=== PATIENT | female | born 1955 | race Caucasian/White ===

== ENCOUNTER → 2018-03-15 | Outpatient (CLI) | payer OTHER ==
[~2018-03-15] MED LIST: ADVIL100 MG PO; ASPI81CH PO; Apidra Sol100 UNIT/1 SC; Augmentin 875-1 EACH PO; BENADRYL PO; BENADRYL25 MG PO; CALCA500CH PO; CHOL10002 PO; Caltrate-600 W1 EACH PO; DOCU100 PO; INSDET100 SC; INVOKANA100 MG PO; L-LYSINE500 MG PO; LEVFLO500 PO; LISI5 PO; METF500C PO; METO100ER PO; METR500 PO; Mupirocin22 GM TOP; NAPR220 PO; POTA20LUD PO; RALO60 PO; SIMV40 PO; TOUJEO SOL300 UNIT/1 SQ
== END | disposition home or self-care (01) ==
LOC: EDSTATUS 11:52 → LAB 22:27
DX: L08.9 Local infection of the skin and subcutaneous tissue, unspecified (principal)

== ENCOUNTER → 2020-12-17 | Outpatient (CLI) | payer OTHER ==
[~2020-12-17] MED LIST changes: +HYDR1TAB94 PO
== END | disposition home or self-care (01) ==
LOC: LAB 10:30 → LAB SHORT 10:30
DX: R22.2 Localized swelling, mass and lump, trunk (principal)
CPT/HCPCS: 87070; 87205

== ENCOUNTER → 2021-01-10 | Outpatient (CLI) | payer OTHER | END | disposition home or self-care (01) | LOC: LAB SHORT 15:04 → PLD 15:04 | DX: L82.1 Other seborrheic keratosis (principal) | CPT/HCPCS: 88305 ==

== ENCOUNTER → 2021-01-29 | Outpatient (CLI) | payer OTHER | LOC: LAB SHORT 09:45 → LAB 09:45 | DX: L03.313 Cellulitis of chest wall (principal); Z85.3 Personal history of malignant neoplasm of breast; Z90.12 Acquired absence of left breast and nipple; Z88.6 Allergy status to analgesic agent; Z88.2 Allergy status to sulfonamides; Z88.8 Allergy status to other drugs, medicaments and biological substances; Z91.040 Latex allergy status | CPT/HCPCS: 87070; 87077; 87147; 87186; 87205 ==

== ENCOUNTER → 2021-04-05 | Outpatient (CLI) | payer OTHER | END | disposition home or self-care (01) | LOC: LAB SHORT 12:30 | DX: S20.312D Abrasion of left front wall of thorax, subsequent encounter (principal) | CPT/HCPCS: 87070; 87075; 87077; 87186; 87205 ==

== ENCOUNTER 2021-05-22 08:00 | Day surgery (SDC) | payer OTHER | END 2021-05-22 23:59 | disposition home or self-care (01) | LOC: WOUND 08:00 | DX: S21.102D Unspecified open wound of left front wall of thorax without penetration into thoracic cavity, subsequent encounter (principal); X58.XXXD Exposure to other specified factors, subsequent encounter; Z85.3 Personal history of malignant neoplasm of breast; Z92.3 Personal history of irradiation | CPT/HCPCS: 11102; 88305; 88312; A9270; G0463 ==

== ENCOUNTER 2021-06-03 02:57 | Day surgery (SDC) | payer OTHER | END 2021-06-03 12:00 | disposition home or self-care (01) | LOC: WOUND 02:57 | DX: L59.8 Other specified disorders of the skin and subcutaneous tissue related to radiation (principal); E11.9 Type 2 diabetes mellitus without complications; Y84.2 Radiological procedure and radiotherapy as the cause of abnormal reaction of the patient, or of later complication, without mention of misadventure at the time of the procedure; Z85.3 Personal history of malignant neoplasm of breast; Z92.3 Personal history of irradiation; Z90.13 Acquired absence of bilateral breasts and nipples | CPT/HCPCS: G0463 ==

== ENCOUNTER 2021-06-04 07:56 | Day surgery (SDC) | payer OTHER | END 2021-06-04 23:00 | disposition home or self-care (01) | LOC: HBO 07:56 | DX: L59.8 Other specified disorders of the skin and subcutaneous tissue related to radiation (principal); E11.9 Type 2 diabetes mellitus without complications; Z85.3 Personal history of malignant neoplasm of breast; Z92.3 Personal history of irradiation | CPT/HCPCS: 82947; G0277 ==

== ENCOUNTER 2021-06-05 02:16 | Day surgery (SDC) | payer OTHER | END 2021-06-05 23:16 | disposition home or self-care (01) | LOC: HBO 02:16 | DX: L59.8 Other specified disorders of the skin and subcutaneous tissue related to radiation (principal); E11.59 Type 2 diabetes mellitus with other circulatory complications; Z85.3 Personal history of malignant neoplasm of breast; Z92.3 Personal history of irradiation | CPT/HCPCS: 82947; G0277 ==

== ENCOUNTER 2021-06-06 04:07 | Day surgery (SDC) | payer OTHER | END 2021-06-06 23:32 | disposition home or self-care (01) | LOC: HBO 04:07 | DX: L59.8 Other specified disorders of the skin and subcutaneous tissue related to radiation (principal); E11.9 Type 2 diabetes mellitus without complications; Z85.3 Personal history of malignant neoplasm of breast; Z92.3 Personal history of irradiation | CPT/HCPCS: 82947; G0277 ==

== ENCOUNTER 2021-06-07 00:54 | Day surgery (SDC) | payer OTHER | END 2021-06-07 23:57 | disposition home or self-care (01) | LOC: HBO 00:54 | DX: L59.8 Other specified disorders of the skin and subcutaneous tissue related to radiation (principal); E11.9 Type 2 diabetes mellitus without complications; Z85.3 Personal history of malignant neoplasm of breast; Z92.3 Personal history of irradiation | CPT/HCPCS: 82947; G0277 ==

== ENCOUNTER 2021-06-10 02:09 | Day surgery (SDC) | payer OTHER | END 2021-06-10 23:49 | disposition home or self-care (01) | LOC: HBO 02:09 | DX: L59.8 Other specified disorders of the skin and subcutaneous tissue related to radiation (principal); E11.9 Type 2 diabetes mellitus without complications; Z85.3 Personal history of malignant neoplasm of breast; Z92.3 Personal history of irradiation | CPT/HCPCS: 82947; G0277 ==

== ENCOUNTER 2021-06-11 00:37 | Day surgery (SDC) | payer OTHER | END 2021-06-11 22:49 | disposition home or self-care (01) | LOC: HBO 00:37 | DX: L59.8 Other specified disorders of the skin and subcutaneous tissue related to radiation (principal); E11.9 Type 2 diabetes mellitus without complications; Z85.3 Personal history of malignant neoplasm of breast | CPT/HCPCS: 82947; A9270; G0277; G0463 ==

== ENCOUNTER 2021-06-12 00:26 | Day surgery (SDC) | payer OTHER | END 2021-06-12 23:16 | disposition home or self-care (01) | LOC: HBO 00:26 | DX: L59.8 Other specified disorders of the skin and subcutaneous tissue related to radiation (principal); E11.9 Type 2 diabetes mellitus without complications; Z85.3 Personal history of malignant neoplasm of breast; Z92.3 Personal history of irradiation | CPT/HCPCS: 82947; G0277 ==

== ENCOUNTER 2021-06-13 01:33 | Day surgery (SDC) | payer OTHER | END 2021-06-13 23:33 | disposition home or self-care (01) | LOC: HBO 01:33 | DX: L59.8 Other specified disorders of the skin and subcutaneous tissue related to radiation (principal); E11.9 Type 2 diabetes mellitus without complications; Z85.3 Personal history of malignant neoplasm of breast; Z92.3 Personal history of irradiation | CPT/HCPCS: 82947; G0277 ==

== ENCOUNTER 2021-06-14 02:26 | Day surgery (SDC) | payer OTHER | END 2021-06-14 23:19 | disposition home or self-care (01) | LOC: HBO 02:26 | DX: L59.8 Other specified disorders of the skin and subcutaneous tissue related to radiation (principal); E11.9 Type 2 diabetes mellitus without complications; Y84.2 Radiological procedure and radiotherapy as the cause of abnormal reaction of the patient, or of later complication, without mention of misadventure at the time of the procedure; Z85.3 Personal history of malignant neoplasm of breast; Z92.3 Personal history of irradiation | CPT/HCPCS: 82947; G0277 ==

== ENCOUNTER 2021-06-17 03:00 | Day surgery (SDC) | payer OTHER | END 2021-06-17 23:19 | disposition home or self-care (01) | LOC: HBO 03:00 | DX: L59.8 Other specified disorders of the skin and subcutaneous tissue related to radiation (principal); E11.9 Type 2 diabetes mellitus without complications; Z85.3 Personal history of malignant neoplasm of breast; Z92.3 Personal history of irradiation; Y84.2 Radiological procedure and radiotherapy as the cause of abnormal reaction of the patient, or of later complication, without mention of misadventure at the time of the procedure | CPT/HCPCS: 82947; G0277 ==

== ENCOUNTER 2021-06-19 01:18 | Day surgery (SDC) | payer OTHER | END 2021-06-19 23:04 | disposition home or self-care (01) | LOC: HBO 01:18 | DX: L59.8 Other specified disorders of the skin and subcutaneous tissue related to radiation (principal); E11.9 Type 2 diabetes mellitus without complications; Y84.2 Radiological procedure and radiotherapy as the cause of abnormal reaction of the patient, or of later complication, without mention of misadventure at the time of the procedure; Z85.3 Personal history of malignant neoplasm of breast; Z92.3 Personal history of irradiation | CPT/HCPCS: 82947; G0277 ==

== ENCOUNTER 2021-06-20 01:37 | Day surgery (SDC) | payer OTHER | END 2021-06-20 23:08 | disposition home or self-care (01) | LOC: HBO 01:37 | DX: L59.8 Other specified disorders of the skin and subcutaneous tissue related to radiation (principal); E11.9 Type 2 diabetes mellitus without complications; Z85.3 Personal history of malignant neoplasm of breast; Z92.3 Personal history of irradiation | CPT/HCPCS: 82947; G0277 ==

== ENCOUNTER 2021-06-21 03:01 | Day surgery (SDC) | payer OTHER | END 2021-06-21 23:32 | disposition home or self-care (01) | LOC: HBO 03:01 | DX: L59.8 Other specified disorders of the skin and subcutaneous tissue related to radiation (principal); E11.9 Type 2 diabetes mellitus without complications; Z85.3 Personal history of malignant neoplasm of breast; Z92.3 Personal history of irradiation | CPT/HCPCS: 82947; G0277 ==

== ENCOUNTER 2021-06-25 02:50 | Day surgery (SDC) | payer OTHER | END 2021-06-25 23:00 | disposition home or self-care (01) | LOC: HBO 02:50 | DX: L59.8 Other specified disorders of the skin and subcutaneous tissue related to radiation (principal); E11.9 Type 2 diabetes mellitus without complications; Z85.3 Personal history of malignant neoplasm of breast; Z92.3 Personal history of irradiation; Y84.2 Radiological procedure and radiotherapy as the cause of abnormal reaction of the patient, or of later complication, without mention of misadventure at the time of the procedure | CPT/HCPCS: 82947; G0277 ==

== ENCOUNTER 2021-06-26 02:27 | Day surgery (SDC) | payer OTHER | END 2021-06-26 23:49 | disposition home or self-care (01) | LOC: HBO 02:27 | DX: L59.8 Other specified disorders of the skin and subcutaneous tissue related to radiation (principal); E11.9 Type 2 diabetes mellitus without complications; Z85.3 Personal history of malignant neoplasm of breast; Z92.3 Personal history of irradiation; Y84.2 Radiological procedure and radiotherapy as the cause of abnormal reaction of the patient, or of later complication, without mention of misadventure at the time of the procedure | CPT/HCPCS: 82947; G0277 ==

== ENCOUNTER 2021-06-27 01:48 | Day surgery (SDC) | payer OTHER | END 2021-06-27 23:05 | disposition home or self-care (01) | LOC: HBO 01:48 | DX: L59.8 Other specified disorders of the skin and subcutaneous tissue related to radiation (principal); E11.9 Type 2 diabetes mellitus without complications; Y84.2 Radiological procedure and radiotherapy as the cause of abnormal reaction of the patient, or of later complication, without mention of misadventure at the time of the procedure; Z85.3 Personal history of malignant neoplasm of breast; Z92.3 Personal history of irradiation | CPT/HCPCS: 82947; G0277 ==

== ENCOUNTER 2021-06-27 01:51 | Day surgery (SDC) | payer OTHER | END 2021-06-27 23:05 | disposition home or self-care (01) | LOC: WOUND 01:51 | DX: L59.8 Other specified disorders of the skin and subcutaneous tissue related to radiation (principal); E11.9 Type 2 diabetes mellitus without complications; Z85.3 Personal history of malignant neoplasm of breast; Z92.3 Personal history of irradiation | CPT/HCPCS: G0463 ==

== ENCOUNTER 2021-07-01 00:52 | Day surgery (SDC) | payer OTHER | END 2021-07-01 23:06 | disposition home or self-care (01) | LOC: HBO 00:52 | PROC: 5A05121 Extracorporeal Hyperbaric Oxygenation, Intermittent (ICD-10-PCS; principal; 2021-07-01) | DX: L59.8 Other specified disorders of the skin and subcutaneous tissue related to radiation (principal); E11.9 Type 2 diabetes mellitus without complications; Z85.3 Personal history of malignant neoplasm of breast; Z92.3 Personal history of irradiation | CPT/HCPCS: 82947; G0277 ==

== ENCOUNTER 2021-07-03 00:53 | Day surgery (SDC) | payer OTHER | END 2021-07-03 23:55 | disposition home or self-care (01) | LOC: HBO 00:53 | DX: L59.8 Other specified disorders of the skin and subcutaneous tissue related to radiation (principal); E11.9 Type 2 diabetes mellitus without complications; Z92.3 Personal history of irradiation; Z85.3 Personal history of malignant neoplasm of breast | CPT/HCPCS: 82947; G0277 ==

== ENCOUNTER 2021-07-05 01:53 | Day surgery (SDC) | payer OTHER | END 2021-07-05 23:25 | disposition home or self-care (01) | LOC: HBO 01:53 | DX: L59.8 Other specified disorders of the skin and subcutaneous tissue related to radiation (principal); E11.9 Type 2 diabetes mellitus without complications; Z85.3 Personal history of malignant neoplasm of breast; Z92.3 Personal history of irradiation | CPT/HCPCS: 82947; G0277 ==

== ENCOUNTER 2021-07-08 02:48 | Day surgery (SDC) | payer OTHER | END 2021-07-08 23:01 | disposition home or self-care (01) | LOC: HBO 02:48 | DX: L59.8 Other specified disorders of the skin and subcutaneous tissue related to radiation (principal); E11.9 Type 2 diabetes mellitus without complications; Z85.3 Personal history of malignant neoplasm of breast; Z92.3 Personal history of irradiation | CPT/HCPCS: 82947; G0277 ==

== ENCOUNTER 2021-07-09 04:22 | Day surgery (SDC) | payer OTHER | END 2021-07-09 23:45 | disposition home or self-care (01) | LOC: HBO 04:22 | DX: L59.8 Other specified disorders of the skin and subcutaneous tissue related to radiation (principal); E11.9 Type 2 diabetes mellitus without complications; Z85.3 Personal history of malignant neoplasm of breast; Z92.3 Personal history of irradiation | CPT/HCPCS: 82947; G0277 ==

== ENCOUNTER 2021-07-10 00:02 | Day surgery (SDC) | payer OTHER | END 2021-07-10 23:59 | disposition home or self-care (01) | LOC: HBO 00:02 | DX: L59.8 Other specified disorders of the skin and subcutaneous tissue related to radiation (principal); E11.9 Type 2 diabetes mellitus without complications; Z85.3 Personal history of malignant neoplasm of breast; Z92.3 Personal history of irradiation | CPT/HCPCS: 82947; G0277 ==

== ENCOUNTER 2021-07-11 01:20 | Day surgery (SDC) | payer OTHER | END 2021-07-11 23:05 | disposition home or self-care (01) | LOC: HBO 01:20 | DX: L59.8 Other specified disorders of the skin and subcutaneous tissue related to radiation (principal); E11.9 Type 2 diabetes mellitus without complications; Z85.3 Personal history of malignant neoplasm of breast; Z92.3 Personal history of irradiation | CPT/HCPCS: 82947; G0277 ==

== ENCOUNTER 2021-07-12 04:27 | Day surgery (SDC) | payer OTHER | END 2021-07-12 23:19 | disposition home or self-care (01) | LOC: HBO 04:27 | DX: L59.8 Other specified disorders of the skin and subcutaneous tissue related to radiation (principal); E11.9 Type 2 diabetes mellitus without complications; Z85.3 Personal history of malignant neoplasm of breast; Z92.3 Personal history of irradiation | CPT/HCPCS: 82947; G0277 ==

== ENCOUNTER 2021-07-15 05:53 | Day surgery (SDC) | payer OTHER | END 2021-07-15 23:37 | disposition home or self-care (01) | LOC: HBO 05:53 | DX: L59.8 Other specified disorders of the skin and subcutaneous tissue related to radiation (principal); E11.9 Type 2 diabetes mellitus without complications; Z85.3 Personal history of malignant neoplasm of breast; Z92.3 Personal history of irradiation | CPT/HCPCS: 82947; G0277 ==

== ENCOUNTER 2021-07-16 02:51 | Day surgery (SDC) | payer OTHER | END 2021-07-16 22:44 | disposition home or self-care (01) | LOC: HBO 02:51 | DX: L59.8 Other specified disorders of the skin and subcutaneous tissue related to radiation (principal); E11.9 Type 2 diabetes mellitus without complications; Z85.3 Personal history of malignant neoplasm of breast; Z92.3 Personal history of irradiation | CPT/HCPCS: 82947; G0277 ==

== ENCOUNTER 2021-07-17 02:40 | Day surgery (SDC) | payer OTHER | END 2021-07-17 22:59 | disposition home or self-care (01) | LOC: HBO 02:40 | DX: L59.8 Other specified disorders of the skin and subcutaneous tissue related to radiation (principal); E11.9 Type 2 diabetes mellitus without complications; Z85.3 Personal history of malignant neoplasm of breast; Z92.3 Personal history of irradiation | CPT/HCPCS: 82947; G0277 ==

== ENCOUNTER 2021-07-18 00:57 | Day surgery (SDC) | payer OTHER | END 2021-07-18 23:04 | disposition home or self-care (01) | LOC: HBO 00:57 | DX: L59.8 Other specified disorders of the skin and subcutaneous tissue related to radiation (principal); E11.9 Type 2 diabetes mellitus without complications; Z85.3 Personal history of malignant neoplasm of breast; Z92.3 Personal history of irradiation | CPT/HCPCS: 82947; G0277 ==

== ENCOUNTER 2021-07-18 01:12 | Day surgery (SDC) | payer OTHER | END 2021-07-18 23:04 | disposition home or self-care (01) | LOC: WOUND 01:12 | DX: L59.8 Other specified disorders of the skin and subcutaneous tissue related to radiation (principal); E11.9 Type 2 diabetes mellitus without complications; Z85.3 Personal history of malignant neoplasm of breast; Z92.3 Personal history of irradiation; Z88.2 Allergy status to sulfonamides; Z88.6 Allergy status to analgesic agent; Z91.040 Latex allergy status | CPT/HCPCS: A9270 ==

== ENCOUNTER 2021-07-19 00:43 | Day surgery (SDC) | payer OTHER | END 2021-07-19 12:00 | disposition home or self-care (01) | LOC: HBO 00:43 | DX: L59.8 Other specified disorders of the skin and subcutaneous tissue related to radiation (principal); E11.9 Type 2 diabetes mellitus without complications; Z85.3 Personal history of malignant neoplasm of breast; Z92.3 Personal history of irradiation; Y84.2 Radiological procedure and radiotherapy as the cause of abnormal reaction of the patient, or of later complication, without mention of misadventure at the time of the procedure | CPT/HCPCS: 82947; G0277 ==

== ENCOUNTER 2021-07-22 05:49 | Day surgery (SDC) | payer OTHER | END 2021-07-22 22:52 | disposition home or self-care (01) | LOC: HBO 05:49 | DX: L59.8 Other specified disorders of the skin and subcutaneous tissue related to radiation (principal); E11.9 Type 2 diabetes mellitus without complications; Z85.3 Personal history of malignant neoplasm of breast; Z92.3 Personal history of irradiation | CPT/HCPCS: 82947; G0277 ==

== ENCOUNTER 2021-07-23 01:11 | Day surgery (SDC) | payer OTHER | END 2021-07-23 23:28 | disposition home or self-care (01) | LOC: HBO 01:11 | DX: L59.8 Other specified disorders of the skin and subcutaneous tissue related to radiation (principal); E11.9 Type 2 diabetes mellitus without complications; Z85.3 Personal history of malignant neoplasm of breast; Z92.3 Personal history of irradiation | CPT/HCPCS: 82947; G0277 ==

== ENCOUNTER 2021-07-25 01:58 | Day surgery (SDC) | payer OTHER | END 2021-07-25 23:59 | disposition home or self-care (01) | LOC: HBO 01:58 | DX: L59.8 Other specified disorders of the skin and subcutaneous tissue related to radiation (principal); E11.9 Type 2 diabetes mellitus without complications; Z85.3 Personal history of malignant neoplasm of breast; Z92.3 Personal history of irradiation | CPT/HCPCS: 82947; G0277 ==

== ENCOUNTER 2021-07-26 01:23 | Day surgery (SDC) | payer OTHER | END 2021-07-26 23:49 | disposition home or self-care (01) | LOC: HBO 01:23 | DX: L59.8 Other specified disorders of the skin and subcutaneous tissue related to radiation (principal); E11.9 Type 2 diabetes mellitus without complications; Z85.3 Personal history of malignant neoplasm of breast; Z92.3 Personal history of irradiation | CPT/HCPCS: 82947; G0277 ==

== ENCOUNTER 2021-07-29 03:07 | Day surgery (SDC) | payer OTHER | END 2021-07-29 22:55 | disposition home or self-care (01) | LOC: HBO 03:07 | DX: L59.8 Other specified disorders of the skin and subcutaneous tissue related to radiation (principal); E11.9 Type 2 diabetes mellitus without complications; Z85.3 Personal history of malignant neoplasm of breast; Z92.3 Personal history of irradiation; Y84.2 Radiological procedure and radiotherapy as the cause of abnormal reaction of the patient, or of later complication, without mention of misadventure at the time of the procedure | CPT/HCPCS: 82947; G0277 ==

== ENCOUNTER 2021-07-30 01:31 | Day surgery (SDC) | payer OTHER | END 2021-07-30 23:04 | disposition home or self-care (01) | LOC: HBO 01:31 | DX: L59.8 Other specified disorders of the skin and subcutaneous tissue related to radiation (principal); E11.9 Type 2 diabetes mellitus without complications; Z85.3 Personal history of malignant neoplasm of breast; Z92.3 Personal history of irradiation | CPT/HCPCS: 82947; G0277 ==

== ENCOUNTER 2021-07-31 05:15 | Day surgery (SDC) | payer OTHER | END 2021-07-31 22:48 | disposition home or self-care (01) | LOC: HBO 05:15 | DX: L59.8 Other specified disorders of the skin and subcutaneous tissue related to radiation (principal); E11.9 Type 2 diabetes mellitus without complications; Z85.3 Personal history of malignant neoplasm of breast; Z92.3 Personal history of irradiation | CPT/HCPCS: 82947; G0277 ==

== ENCOUNTER 2021-08-01 01:16 | Day surgery (SDC) | payer OTHER | END 2021-08-01 23:02 | disposition home or self-care (01) | LOC: HBO 01:16 | DX: L59.8 Other specified disorders of the skin and subcutaneous tissue related to radiation (principal); E11.9 Type 2 diabetes mellitus without complications; Z85.3 Personal history of malignant neoplasm of breast; Z92.3 Personal history of irradiation; Y84.2 Radiological procedure and radiotherapy as the cause of abnormal reaction of the patient, or of later complication, without mention of misadventure at the time of the procedure | CPT/HCPCS: 82947; G0277 ==

== ENCOUNTER 2021-08-05 03:55 | Day surgery (SDC) | payer OTHER | END 2021-08-05 12:00 | disposition home or self-care (01) | LOC: HBO | DX: L59.8 Other specified disorders of the skin and subcutaneous tissue related to radiation (principal); E11.9 Type 2 diabetes mellitus without complications; Z85.3 Personal history of malignant neoplasm of breast; Z92.3 Personal history of irradiation | CPT/HCPCS: 82947; G0277 ==

== ENCOUNTER 2021-08-06 03:19 | Day surgery (SDC) | payer OTHER | END 2021-08-06 12:00 | disposition home or self-care (01) | LOC: HBO 03:19 | DX: L59.8 Other specified disorders of the skin and subcutaneous tissue related to radiation (principal); Y84.2 Radiological procedure and radiotherapy as the cause of abnormal reaction of the patient, or of later complication, without mention of misadventure at the time of the procedure; Z85.3 Personal history of malignant neoplasm of breast; Z92.3 Personal history of irradiation; E11.9 Type 2 diabetes mellitus without complications | CPT/HCPCS: 82947; G0277 ==

== ENCOUNTER 2021-08-08 01:38 | Day surgery (SDC) | payer OTHER | END 2021-08-08 23:22 | disposition home or self-care (01) | LOC: HBO 01:38 | DX: L59.8 Other specified disorders of the skin and subcutaneous tissue related to radiation (principal); E11.9 Type 2 diabetes mellitus without complications; Z85.3 Personal history of malignant neoplasm of breast; Z92.3 Personal history of irradiation | CPT/HCPCS: 82947; G0277 ==

== ENCOUNTER 2021-08-12 06:21 | Day surgery (SDC) | payer OTHER | END 2021-08-12 22:51 | disposition home or self-care (01) | LOC: HBO 06:21 | DX: L59.8 Other specified disorders of the skin and subcutaneous tissue related to radiation (principal); E11.9 Type 2 diabetes mellitus without complications; Z85.3 Personal history of malignant neoplasm of breast; Z92.3 Personal history of irradiation | CPT/HCPCS: 82947; G0277 ==

== ENCOUNTER 2021-08-13 04:52 | Day surgery (SDC) | payer OTHER | END 2021-08-13 22:43 | disposition home or self-care (01) | LOC: HBO 04:52 | DX: L59.8 Other specified disorders of the skin and subcutaneous tissue related to radiation (principal); E11.9 Type 2 diabetes mellitus without complications; Z85.3 Personal history of malignant neoplasm of breast; Z92.3 Personal history of irradiation | CPT/HCPCS: 82947; G0277 ==

== ENCOUNTER 2021-08-14 01:35 | Day surgery (SDC) | payer OTHER | END 2021-08-14 23:06 | disposition home or self-care (01) | LOC: HBO 01:35 | DX: L59.8 Other specified disorders of the skin and subcutaneous tissue related to radiation (principal); E11.9 Type 2 diabetes mellitus without complications; Z85.3 Personal history of malignant neoplasm of breast; Z92.3 Personal history of irradiation | CPT/HCPCS: 82947; G0277 ==

== ENCOUNTER 2021-08-15 01:40 | Day surgery (SDC) | payer OTHER | END 2021-08-15 23:07 | disposition home or self-care (01) | LOC: HBO 01:40 | DX: L59.8 Other specified disorders of the skin and subcutaneous tissue related to radiation (principal); E11.9 Type 2 diabetes mellitus without complications; Z85.3 Personal history of malignant neoplasm of breast; Z92.3 Personal history of irradiation; Y84.2 Radiological procedure and radiotherapy as the cause of abnormal reaction of the patient, or of later complication, without mention of misadventure at the time of the procedure | CPT/HCPCS: 82947; G0277 ==

== ENCOUNTER 2021-08-15 01:42 | Day surgery (SDC) | payer OTHER | END 2021-08-15 23:11 | disposition home or self-care (01) | LOC: WOUND 01:42 | DX: L59.8 Other specified disorders of the skin and subcutaneous tissue related to radiation (principal); E11.9 Type 2 diabetes mellitus without complications; Z85.3 Personal history of malignant neoplasm of breast; Z92.3 Personal history of irradiation | CPT/HCPCS: A9270; G0463 ==

== ENCOUNTER 2021-08-16 05:35 | Day surgery (SDC) | payer OTHER | END 2021-08-16 23:37 | disposition home or self-care (01) | LOC: HBO 05:35 | DX: L59.8 Other specified disorders of the skin and subcutaneous tissue related to radiation (principal); E11.9 Type 2 diabetes mellitus without complications; Z85.3 Personal history of malignant neoplasm of breast; Z92.3 Personal history of irradiation | CPT/HCPCS: 82947; G0277 ==

== ENCOUNTER 2021-08-19 06:11 | Day surgery (SDC) | payer OTHER | END 2021-08-19 23:21 | disposition home or self-care (01) | LOC: HBO 06:11 | DX: L59.8 Other specified disorders of the skin and subcutaneous tissue related to radiation (principal); E11.9 Type 2 diabetes mellitus without complications; Z85.3 Personal history of malignant neoplasm of breast; Z92.3 Personal history of irradiation | CPT/HCPCS: 82947; G0277 ==

== ENCOUNTER 2021-08-20 01:45 | Day surgery (SDC) | payer OTHER | END 2021-08-20 22:59 | disposition home or self-care (01) | LOC: HBO 01:45 | DX: L59.8 Other specified disorders of the skin and subcutaneous tissue related to radiation (principal); E11.9 Type 2 diabetes mellitus without complications; Z85.3 Personal history of malignant neoplasm of breast; Z92.3 Personal history of irradiation | CPT/HCPCS: 82947; G0277 ==

== ENCOUNTER 2021-08-21 02:37 | Day surgery (SDC) | payer OTHER | END 2021-08-21 12:00 | disposition home or self-care (01) | LOC: HBO 02:37 | DX: L59.8 Other specified disorders of the skin and subcutaneous tissue related to radiation (principal); E11.9 Type 2 diabetes mellitus without complications; Z85.3 Personal history of malignant neoplasm of breast; Z92.3 Personal history of irradiation | CPT/HCPCS: 82947; G0277 ==

== ENCOUNTER 2021-08-22 08:00 | Day surgery (SDC) | payer OTHER | END 2021-08-22 23:59 | disposition home or self-care (01) | LOC: HBO 08:00 | DX: L59.8 Other specified disorders of the skin and subcutaneous tissue related to radiation (principal); E11.9 Type 2 diabetes mellitus without complications; Z85.3 Personal history of malignant neoplasm of breast; Z92.3 Personal history of irradiation | CPT/HCPCS: 82947; G0277 ==

== ENCOUNTER 2021-08-27 01:39 | Day surgery (SDC) | payer OTHER | END 2021-08-27 22:44 | disposition home or self-care (01) | LOC: HBO 01:39 | DX: L59.8 Other specified disorders of the skin and subcutaneous tissue related to radiation (principal); E11.9 Type 2 diabetes mellitus without complications; Y84.2 Radiological procedure and radiotherapy as the cause of abnormal reaction of the patient, or of later complication, without mention of misadventure at the time of the procedure; Z85.3 Personal history of malignant neoplasm of breast; Z92.3 Personal history of irradiation | CPT/HCPCS: 82947; G0277 ==

== ENCOUNTER 2021-08-27 01:45 | Day surgery (SDC) | payer OTHER | END 2021-08-27 22:44 | disposition home or self-care (01) | LOC: WOUND 01:45 | DX: L59.8 Other specified disorders of the skin and subcutaneous tissue related to radiation (principal); E11.621 Type 2 diabetes mellitus with foot ulcer; L97.519 Non-pressure chronic ulcer of other part of right foot with unspecified severity; S91.101A Unspecified open wound of right great toe without damage to nail, initial encounter; X58.XXXA Exposure to other specified factors, initial encounter; E11.65 Type 2 diabetes mellitus with hyperglycemia; E11.40 Type 2 diabetes mellitus with diabetic neuropathy, unspecified; Z85.3 Personal history of malignant neoplasm of breast; Z92.3 Personal history of irradiation | CPT/HCPCS: A9270; G0463 ==

== ENCOUNTER 2021-08-28 04:52 | Day surgery (SDC) | payer OTHER | END 2021-08-28 23:01 | disposition home or self-care (01) | LOC: HBO 04:52 | DX: L59.8 Other specified disorders of the skin and subcutaneous tissue related to radiation (principal); Y84.2 Radiological procedure and radiotherapy as the cause of abnormal reaction of the patient, or of later complication, without mention of misadventure at the time of the procedure; S91.101A Unspecified open wound of right great toe without damage to nail, initial encounter; X58.XXXA Exposure to other specified factors, initial encounter; E11.65 Type 2 diabetes mellitus with hyperglycemia; E11.40 Type 2 diabetes mellitus with diabetic neuropathy, unspecified; Z85.3 Personal history of malignant neoplasm of breast; Z92.3 Personal history of irradiation | CPT/HCPCS: 82947; G0277 ==

== ENCOUNTER 2021-08-30 04:39 | Day surgery (SDC) | payer OTHER | END 2021-08-30 23:36 | disposition home or self-care (01) | LOC: HBO 04:39 | DX: L59.8 Other specified disorders of the skin and subcutaneous tissue related to radiation (principal); E11.65 Type 2 diabetes mellitus with hyperglycemia; E11.40 Type 2 diabetes mellitus with diabetic neuropathy, unspecified; S91.101A Unspecified open wound of right great toe without damage to nail, initial encounter; X58.XXXA Exposure to other specified factors, initial encounter; Y84.2 Radiological procedure and radiotherapy as the cause of abnormal reaction of the patient, or of later complication, without mention of misadventure at the time of the procedure; Z85.3 Personal history of malignant neoplasm of breast; Z92.3 Personal history of irradiation | CPT/HCPCS: 82947; G0277 ==

== ENCOUNTER 2021-09-03 03:33 | Day surgery (SDC) | payer OTHER | END 2021-09-03 23:38 | disposition home or self-care (01) | LOC: HBO 03:33 | DX: L59.8 Other specified disorders of the skin and subcutaneous tissue related to radiation (principal); E11.40 Type 2 diabetes mellitus with diabetic neuropathy, unspecified; E11.65 Type 2 diabetes mellitus with hyperglycemia; Z85.3 Personal history of malignant neoplasm of breast; Z92.3 Personal history of irradiation; Y84.2 Radiological procedure and radiotherapy as the cause of abnormal reaction of the patient, or of later complication, without mention of misadventure at the time of the procedure | CPT/HCPCS: 82947; G0277 ==

== ENCOUNTER 2021-09-04 03:24 | Day surgery (SDC) | payer OTHER | END 2021-09-04 23:51 | disposition home or self-care (01) | LOC: HBO 03:24 | DX: L59.8 Other specified disorders of the skin and subcutaneous tissue related to radiation (principal); S91.101A Unspecified open wound of right great toe without damage to nail, initial encounter; X58.XXXA Exposure to other specified factors, initial encounter; E11.65 Type 2 diabetes mellitus with hyperglycemia; E11.40 Type 2 diabetes mellitus with diabetic neuropathy, unspecified; Z85.3 Personal history of malignant neoplasm of breast; Z92.3 Personal history of irradiation | CPT/HCPCS: 82947; G0277 ==

== ENCOUNTER 2021-09-04 03:27 | Day surgery (SDC) | payer OTHER | END 2021-09-04 23:51 | disposition home or self-care (01) | LOC: WOUND 03:27 | DX: E11.621 Type 2 diabetes mellitus with foot ulcer (principal); L97.519 Non-pressure chronic ulcer of other part of right foot with unspecified severity; L59.8 Other specified disorders of the skin and subcutaneous tissue related to radiation; S91.101A Unspecified open wound of right great toe without damage to nail, initial encounter; X58.XXXA Exposure to other specified factors, initial encounter; E11.65 Type 2 diabetes mellitus with hyperglycemia; E11.40 Type 2 diabetes mellitus with diabetic neuropathy, unspecified; Z85.3 Personal history of malignant neoplasm of breast; Z92.3 Personal history of irradiation | CPT/HCPCS: G0463 ==

== ENCOUNTER 2021-09-06 05:24 | Day surgery (SDC) | payer OTHER | END 2021-09-06 22:57 | disposition home or self-care (01) | LOC: HBO 05:24 | DX: L59.8 Other specified disorders of the skin and subcutaneous tissue related to radiation (principal); S91.101A Unspecified open wound of right great toe without damage to nail, initial encounter; X58.XXXA Exposure to other specified factors, initial encounter; E11.65 Type 2 diabetes mellitus with hyperglycemia; E11.40 Type 2 diabetes mellitus with diabetic neuropathy, unspecified; Z85.3 Personal history of malignant neoplasm of breast; Z92.3 Personal history of irradiation | CPT/HCPCS: 82947; G0277 ==

== ENCOUNTER 2021-09-18 02:07 | Day surgery (SDC) | payer OTHER | END 2021-09-18 23:11 | disposition home or self-care (01) | LOC: WOUND 02:07 | DX: E11.621 Type 2 diabetes mellitus with foot ulcer (principal); L97.519 Non-pressure chronic ulcer of other part of right foot with unspecified severity; L59.8 Other specified disorders of the skin and subcutaneous tissue related to radiation; S91.101A Unspecified open wound of right great toe without damage to nail, initial encounter; X58.XXXA Exposure to other specified factors, initial encounter; E11.65 Type 2 diabetes mellitus with hyperglycemia; E11.40 Type 2 diabetes mellitus with diabetic neuropathy, unspecified; E11.59 Type 2 diabetes mellitus with other circulatory complications; E11.51 Type 2 diabetes mellitus with diabetic peripheral angiopathy without gangrene; Z85.3 Personal history of malignant neoplasm of breast; Z92.3 Personal history of irradiation | CPT/HCPCS: A9270; G0463 ==

== ENCOUNTER 2021-09-24 05:48 | Day surgery (SDC) | payer OTHER | END 2021-09-24 22:54 | disposition home or self-care (01) | LOC: WOUND 05:48 | DX: L59.8 Other specified disorders of the skin and subcutaneous tissue related to radiation (principal); E11.621 Type 2 diabetes mellitus with foot ulcer | CPT/HCPCS: G0463 ==

== ENCOUNTER 2021-10-02 03:05 | Day surgery (SDC) | payer OTHER | END 2021-10-02 23:06 | disposition short-term general hospital (02) | LOC: WOUND 03:05 | DX: L59.8 Other specified disorders of the skin and subcutaneous tissue related to radiation (principal); E11.621 Type 2 diabetes mellitus with foot ulcer; L97.519 Non-pressure chronic ulcer of other part of right foot with unspecified severity; E11.65 Type 2 diabetes mellitus with hyperglycemia; E11.40 Type 2 diabetes mellitus with diabetic neuropathy, unspecified; E11.51 Type 2 diabetes mellitus with diabetic peripheral angiopathy without gangrene; Z85.3 Personal history of malignant neoplasm of breast; Z92.3 Personal history of irradiation; Y84.2 Radiological procedure and radiotherapy as the cause of abnormal reaction of the patient, or of later complication, without mention of misadventure at the time of the procedure | CPT/HCPCS: A9270; G0463 ==

== ENCOUNTER 2021-10-09 05:53 | Day surgery (SDC) | payer OTHER | END 2021-10-09 23:13 | disposition home or self-care (01) | LOC: WOUND 05:53 | DX: S91.101A Unspecified open wound of right great toe without damage to nail, initial encounter (principal); X58.XXXA Exposure to other specified factors, initial encounter; L59.8 Other specified disorders of the skin and subcutaneous tissue related to radiation | CPT/HCPCS: G0463 ==

== ENCOUNTER 2021-10-23 05:59 | Day surgery (SDC) | payer OTHER | END 2021-10-23 23:43 | disposition home or self-care (01) | LOC: WOUND 05:59 | DX: E11.621 Type 2 diabetes mellitus with foot ulcer (principal); L97.812 Non-pressure chronic ulcer of other part of right lower leg with fat layer exposed; L59.8 Other specified disorders of the skin and subcutaneous tissue related to radiation; S91.101A Unspecified open wound of right great toe without damage to nail, initial encounter; X58.XXXA Exposure to other specified factors, initial encounter; E11.65 Type 2 diabetes mellitus with hyperglycemia; E11.40 Type 2 diabetes mellitus with diabetic neuropathy, unspecified; E11.59 Type 2 diabetes mellitus with other circulatory complications; E11.51 Type 2 diabetes mellitus with diabetic peripheral angiopathy without gangrene; Z85.3 Personal history of malignant neoplasm of breast; Z92.3 Personal history of irradiation | CPT/HCPCS: A9270 ==

== ENCOUNTER 2021-10-30 01:50 | Day surgery (SDC) | payer OTHER | END 2021-10-30 22:39 | disposition home or self-care (01) | LOC: WOUND 01:50 | DX: L59.8 Other specified disorders of the skin and subcutaneous tissue related to radiation (principal); Y84.2 Radiological procedure and radiotherapy as the cause of abnormal reaction of the patient, or of later complication, without mention of misadventure at the time of the procedure; S91.101A Unspecified open wound of right great toe without damage to nail, initial encounter; E11.65 Type 2 diabetes mellitus with hyperglycemia; E11.40 Type 2 diabetes mellitus with diabetic neuropathy, unspecified; E11.621 Type 2 diabetes mellitus with foot ulcer; E11.59 Type 2 diabetes mellitus with other circulatory complications; E11.51 Type 2 diabetes mellitus with diabetic peripheral angiopathy without gangrene; Z85.3 Personal history of malignant neoplasm of breast; Z92.3 Personal history of irradiation | CPT/HCPCS: A9270 ==

== ENCOUNTER 2021-11-06 00:47 | Day surgery (SDC) | payer OTHER | END 2021-11-06 22:51 | disposition home or self-care (01) | LOC: WOUND 00:47 | DX: L59.8 Other specified disorders of the skin and subcutaneous tissue related to radiation (principal); E11.65 Type 2 diabetes mellitus with hyperglycemia; E11.40 Type 2 diabetes mellitus with diabetic neuropathy, unspecified; E11.621 Type 2 diabetes mellitus with foot ulcer; E11.59 Type 2 diabetes mellitus with other circulatory complications; I73.9 Peripheral vascular disease, unspecified; S91.101A Unspecified open wound of right great toe without damage to nail, initial encounter; Z85.3 Personal history of malignant neoplasm of breast; Z92.3 Personal history of irradiation; Y84.2 Radiological procedure and radiotherapy as the cause of abnormal reaction of the patient, or of later complication, without mention of misadventure at the time of the procedure | CPT/HCPCS: A9270; Q4133 ==

== ENCOUNTER 2021-11-19 01:04 | Day surgery (SDC) | payer OTHER | END 2021-11-19 01:05 | disposition home or self-care (01) | LOC: WOUND 01:04 | DX: E11.621 Type 2 diabetes mellitus with foot ulcer (principal); L97.512 Non-pressure chronic ulcer of other part of right foot with fat layer exposed; L59.8 Other specified disorders of the skin and subcutaneous tissue related to radiation; E11.65 Type 2 diabetes mellitus with hyperglycemia; E11.40 Type 2 diabetes mellitus with diabetic neuropathy, unspecified; E11.51 Type 2 diabetes mellitus with diabetic peripheral angiopathy without gangrene; E11.69 Type 2 diabetes mellitus with other specified complication; S21.102A Unspecified open wound of left front wall of thorax without penetration into thoracic cavity, initial encounter; X58.XXXA Exposure to other specified factors, initial encounter; Y84.2 Radiological procedure and radiotherapy as the cause of abnormal reaction of the patient, or of later complication, without mention of misadventure at the time of the procedure | CPT/HCPCS: A9270; G0463 ==

== ENCOUNTER 2021-11-26 05:24 | Day surgery (SDC) | payer OTHER | END 2021-11-26 22:53 | disposition home or self-care (01) | LOC: WOUND 05:24 | DX: L59.8 Other specified disorders of the skin and subcutaneous tissue related to radiation (principal); Z85.3 Personal history of malignant neoplasm of breast; Z92.3 Personal history of irradiation; S91.101A Unspecified open wound of right great toe without damage to nail, initial encounter; E11.65 Type 2 diabetes mellitus with hyperglycemia; E11.40 Type 2 diabetes mellitus with diabetic neuropathy, unspecified; E11.621 Type 2 diabetes mellitus with foot ulcer; E11.59 Type 2 diabetes mellitus with other circulatory complications; E11.51 Type 2 diabetes mellitus with diabetic peripheral angiopathy without gangrene | CPT/HCPCS: A9270; G0463 ==

== ENCOUNTER 2021-12-03 04:17 | Day surgery (SDC) | payer OTHER | END 2021-12-03 22:39 | disposition home or self-care (01) | LOC: WOUND 04:17 | DX: L59.8 Other specified disorders of the skin and subcutaneous tissue related to radiation (principal); S91.101A Unspecified open wound of right great toe without damage to nail, initial encounter; E11.65 Type 2 diabetes mellitus with hyperglycemia; E11.40 Type 2 diabetes mellitus with diabetic neuropathy, unspecified; E11.59 Type 2 diabetes mellitus with other circulatory complications; E11.621 Type 2 diabetes mellitus with foot ulcer; E11.51 Type 2 diabetes mellitus with diabetic peripheral angiopathy without gangrene; Z85.3 Personal history of malignant neoplasm of breast; Z92.3 Personal history of irradiation | CPT/HCPCS: A9270; G0463 ==

== ENCOUNTER 2021-12-10 04:06 | Day surgery (SDC) | payer OTHER | END 2021-12-10 22:50 | disposition home or self-care (01) | LOC: WOUND 04:06 | DX: E11.621 Type 2 diabetes mellitus with foot ulcer (principal); L97.512 Non-pressure chronic ulcer of other part of right foot with fat layer exposed; L59.8 Other specified disorders of the skin and subcutaneous tissue related to radiation; Y84.2 Radiological procedure and radiotherapy as the cause of abnormal reaction of the patient, or of later complication, without mention of misadventure at the time of the procedure; E11.40 Type 2 diabetes mellitus with diabetic neuropathy, unspecified; E11.59 Type 2 diabetes mellitus with other circulatory complications; E11.51 Type 2 diabetes mellitus with diabetic peripheral angiopathy without gangrene; E11.65 Type 2 diabetes mellitus with hyperglycemia; Z85.3 Personal history of malignant neoplasm of breast | CPT/HCPCS: A9270; G0463 ==

== ENCOUNTER 2021-12-24 06:04 | Day surgery (SDC) | payer OTHER | END 2021-12-24 23:57 | disposition home or self-care (01) | LOC: WOUND 06:04 | DX: L59.8 Other specified disorders of the skin and subcutaneous tissue related to radiation (principal); E11.621 Type 2 diabetes mellitus with foot ulcer; L97.512 Non-pressure chronic ulcer of other part of right foot with fat layer exposed; E11.65 Type 2 diabetes mellitus with hyperglycemia; E11.40 Type 2 diabetes mellitus with diabetic neuropathy, unspecified; E11.51 Type 2 diabetes mellitus with diabetic peripheral angiopathy without gangrene; S91.101D Unspecified open wound of right great toe without damage to nail, subsequent encounter; L03.031 Cellulitis of right toe; E11.59 Type 2 diabetes mellitus with other circulatory complications; I77.1 Stricture of artery; Y84.2 Radiological procedure and radiotherapy as the cause of abnormal reaction of the patient, or of later complication, without mention of misadventure at the time of the procedure; Z85.3 Personal history of malignant neoplasm of breast; Z92.3 Personal history of irradiation | CPT/HCPCS: A9270; G0463 ==

== ENCOUNTER 2022-01-06 08:26 | Day surgery (SDC) | payer OTHER ==
[~2022-01-06] VITALS: Ht 167.6 cm; Wt 76.0 kg
[~2022-01-06 08:26] MED LIST changes: +CALCIUM 500-VI1 EAC6 PO; +Calcium Acetat667 MG PO; -Caltrate-600 W1 EACH PO; +GABA300 PO; +K-Phos Origina500 MG PO; +Magnesium30 MG PO; +OZEMPIC1 MG/0.72; -TOUJEO SOL300 UNIT/1 SQ; +TOUJEO SOL300 UNIT/2 SC; +TRAM50 PO; +Vitamin E100 UNIT PO
[2022-01-06] MEDS ORDERED: CLOP75 PO (13:11)
[2022-01-06] MEDS ORDERED: XARELTO20 MG PO (13:12)
--- NOTE | 2022-01-06 14:45 | NUR ---
PT VERBALIZES UNDERSTANDING WRITTEN AND VERBAL INSTRUCT. PT PRESCRIPTIONS FOR PLAVIX AND XARELTO CALLED TO [facility]. VSS. L FEMORAL SITE REMAINS STABLE. NO BLEEDING OR HEMATOMA NOTED.
--- NOTE | 2022-01-06 15:00 | NUR ---
REPORT GIVEN TO GREG HEREDIA RN TO ASSUME CARE.
--- NOTE | 2022-01-06 15:41 | NUR ---
iv site dced with catheter intact. left groin site soft and nontender. no hematoma, no bleeding. patient discharged home. no futher questions. transferred to entrance via wheel chair.
== END 2022-01-06 15:50 | disposition home or self-care (01) ==
LOC: MHTC 08:26
DX: E11.51 Type 2 diabetes mellitus with diabetic peripheral angiopathy without gangrene (principal); I70.223 Atherosclerosis of native arteries of extremities with rest pain, bilateral legs; E11.621 Type 2 diabetes mellitus with foot ulcer; L97.519 Non-pressure chronic ulcer of other part of right foot with unspecified severity; E11.69 Type 2 diabetes mellitus with other specified complication; I10 Essential (primary) hypertension; Z79.4 Long term (current) use of insulin; Z91.040 Latex allergy status; Z88.2 Allergy status to sulfonamides; Z88.8 Allergy status to other drugs, medicaments and biological substances
CPT/HCPCS: 37228; 75625; 75716; 75774; 76937; 85347; 99152; 99153; C1725; C1760; C1769; C1887; C1894; C9772; J1644; J2250; J3010; J7030; J7050; Q9967

== ENCOUNTER 2022-01-07 02:27 | Day surgery (SDC) | payer OTHER ==
[~2022-01-07 02:27] MED LIST changes: +CLOP75 PO; +XARELTO20 MG PO
== END 2022-01-07 23:41 | disposition home or self-care (01) ==
LOC: WOUND 02:27
DX: E11.621 Type 2 diabetes mellitus with foot ulcer (principal); L97.512 Non-pressure chronic ulcer of other part of right foot with fat layer exposed; L59.8 Other specified disorders of the skin and subcutaneous tissue related to radiation; E11.65 Type 2 diabetes mellitus with hyperglycemia; S91.102A Unspecified open wound of left great toe without damage to nail, initial encounter; L03.031 Cellulitis of right toe; E11.40 Type 2 diabetes mellitus with diabetic neuropathy, unspecified; E11.51 Type 2 diabetes mellitus with diabetic peripheral angiopathy without gangrene; Y84.2 Radiological procedure and radiotherapy as the cause of abnormal reaction of the patient, or of later complication, without mention of misadventure at the time of the procedure; Z85.3 Personal history of malignant neoplasm of breast
CPT/HCPCS: A9270; G0463

== ENCOUNTER 2022-01-21 08:00 | Day surgery (SDC) | payer OTHER ==
[2022-01-21] MEDS ORDERED: TRAM50 PO (13:31)
[2022-01-21] MEDS ORDERED: RALO60 PO (13:31)
== END 2022-01-21 23:59 | disposition home or self-care (01) ==
LOC: WOUND 08:00
DX: L59.8 Other specified disorders of the skin and subcutaneous tissue related to radiation (principal); E11.65 Type 2 diabetes mellitus with hyperglycemia; E11.40 Type 2 diabetes mellitus with diabetic neuropathy, unspecified; E11.621 Type 2 diabetes mellitus with foot ulcer; L97.512 Non-pressure chronic ulcer of other part of right foot with fat layer exposed; E11.59 Type 2 diabetes mellitus with other circulatory complications; E11.51 Type 2 diabetes mellitus with diabetic peripheral angiopathy without gangrene; S91.101D Unspecified open wound of right great toe without damage to nail, subsequent encounter; L03.031 Cellulitis of right toe; Z92.3 Personal history of irradiation; Z85.3 Personal history of malignant neoplasm of breast; Z88.2 Allergy status to sulfonamides
CPT/HCPCS: A9270; G0463

== ENCOUNTER 2022-01-28 01:00 | Day surgery (SDC) | payer OTHER | END 2022-01-28 23:00 | disposition home or self-care (01) | LOC: WOUND 01:00 | DX: L59.8 Other specified disorders of the skin and subcutaneous tissue related to radiation (principal); E11.621 Type 2 diabetes mellitus with foot ulcer; L97.512 Non-pressure chronic ulcer of other part of right foot with fat layer exposed; E11.40 Type 2 diabetes mellitus with diabetic neuropathy, unspecified; E11.51 Type 2 diabetes mellitus with diabetic peripheral angiopathy without gangrene; S91.101D Unspecified open wound of right great toe without damage to nail, subsequent encounter; M21.371 Foot drop, right foot; Y84.2 Radiological procedure and radiotherapy as the cause of abnormal reaction of the patient, or of later complication, without mention of misadventure at the time of the procedure; E11.65 Type 2 diabetes mellitus with hyperglycemia | CPT/HCPCS: A9270; G0463 ==

== ENCOUNTER 2022-02-04 02:12 | Day surgery (SDC) | payer OTHER | END 2022-02-04 23:30 | disposition home or self-care (01) | LOC: WOUND 02:12 | DX: E11.621 Type 2 diabetes mellitus with foot ulcer (principal); L97.512 Non-pressure chronic ulcer of other part of right foot with fat layer exposed; Z85.3 Personal history of malignant neoplasm of breast; Z92.3 Personal history of irradiation; E11.40 Type 2 diabetes mellitus with diabetic neuropathy, unspecified; E11.51 Type 2 diabetes mellitus with diabetic peripheral angiopathy without gangrene; M21.371 Foot drop, right foot; L03.031 Cellulitis of right toe | CPT/HCPCS: A9270 ==

== ENCOUNTER 2022-02-11 01:27 | Day surgery (SDC) | payer OTHER | END 2022-02-11 23:48 | disposition home or self-care (01) | LOC: WOUND 01:27 | DX: E11.621 Type 2 diabetes mellitus with foot ulcer (principal); L97.512 Non-pressure chronic ulcer of other part of right foot with fat layer exposed; L59.8 Other specified disorders of the skin and subcutaneous tissue related to radiation; Z85.3 Personal history of malignant neoplasm of breast; Z92.3 Personal history of irradiation; E11.40 Type 2 diabetes mellitus with diabetic neuropathy, unspecified; E11.51 Type 2 diabetes mellitus with diabetic peripheral angiopathy without gangrene; S91.101A Unspecified open wound of right great toe without damage to nail, initial encounter; X58.XXXA Exposure to other specified factors, initial encounter; L03.031 Cellulitis of right toe; M21.371 Foot drop, right foot | CPT/HCPCS: A9270; G0463 ==

== ENCOUNTER 2022-02-25 03:07 | Day surgery (SDC) | payer OTHER | END 2022-02-25 23:33 | disposition home or self-care (01) | LOC: WOUND 03:07 | DX: E11.621 Type 2 diabetes mellitus with foot ulcer (principal); L97.512 Non-pressure chronic ulcer of other part of right foot with fat layer exposed; L59.8 Other specified disorders of the skin and subcutaneous tissue related to radiation; E11.40 Type 2 diabetes mellitus with diabetic neuropathy, unspecified; E11.51 Type 2 diabetes mellitus with diabetic peripheral angiopathy without gangrene; S91.101D Unspecified open wound of right great toe without damage to nail, subsequent encounter; X58.XXXD Exposure to other specified factors, subsequent encounter; L03.031 Cellulitis of right toe; M21.371 Foot drop, right foot; Z85.3 Personal history of malignant neoplasm of breast; Z92.3 Personal history of irradiation | CPT/HCPCS: A9270; G0463 ==

== ENCOUNTER 2022-03-18 04:29 | Day surgery (SDC) | payer OTHER | END 2022-03-18 23:16 | disposition home or self-care (01) | LOC: WOUND 04:29 | DX: E11.621 Type 2 diabetes mellitus with foot ulcer (principal); L97.512 Non-pressure chronic ulcer of other part of right foot with fat layer exposed; E11.40 Type 2 diabetes mellitus with diabetic neuropathy, unspecified; E11.51 Type 2 diabetes mellitus with diabetic peripheral angiopathy without gangrene; Z89.429 Acquired absence of other toe(s), unspecified side; L59.8 Other specified disorders of the skin and subcutaneous tissue related to radiation; L03.031 Cellulitis of right toe; M21.371 Foot drop, right foot; S91.101D Unspecified open wound of right great toe without damage to nail, subsequent encounter; Z85.3 Personal history of malignant neoplasm of breast; Z92.3 Personal history of irradiation | CPT/HCPCS: G0463 ==

== ENCOUNTER 2022-04-01 01:55 | Day surgery (SDC) | payer OTHER | END 2022-04-01 22:56 | disposition home or self-care (01) | LOC: WOUND 01:55 | DX: L59.8 Other specified disorders of the skin and subcutaneous tissue related to radiation (principal); E11.621 Type 2 diabetes mellitus with foot ulcer; E11.40 Type 2 diabetes mellitus with diabetic neuropathy, unspecified; E11.51 Type 2 diabetes mellitus with diabetic peripheral angiopathy without gangrene; S91.101D Unspecified open wound of right great toe without damage to nail, subsequent encounter; X58.XXXD Exposure to other specified factors, subsequent encounter; Z85.3 Personal history of malignant neoplasm of breast; Z92.3 Personal history of irradiation | CPT/HCPCS: G0463 ==

== ENCOUNTER 2022-04-10 05:38 | Day surgery (SDC) | payer OTHER ==
[~2022-04-10] VITALS: Ht 167.6 cm; Wt 69.0 kg
[~2022-04-10 05:38] MED LIST changes: -OZEMPIC1 MG/0.72; +OZEMPIC1 MG/0.72 SC
--- NOTE | 2022-04-10 12:05 | NUR ---
DR. BOSTON AT THE BEDSIDE. UPDATED ON LOW BLOOD PRESSURE. RIGHT GROIN SITE STABLE. PATIENT HAS BEEN UP TO THE RESTROOM, NO DIZZINESS. NO LIGHTHEADEDNESS. PATIENT IS SITTING UP IN THE BED AND EATING HER LUNCH TRAY. PATIENT WAS EVALUATED BY DR. BOSTON AND DEEMED STABLE AND READY FOR DISCHARGE.
--- NOTE | 2022-04-10 12:39 | NUR ---
PT UP AND DRESSED, GROIN SITE STABLE. DISCHARGE REVIEWED, VERBALIZES UNDERSTANDING AND HAS NO QUESTIONS. SALINE LOCK REMOVED WITH CATHETER INTACT. PT TO PRIVATE VEHICLE PER W/C.
== END 2022-04-10 12:35 | disposition home or self-care (01) ==
LOC: MHTC 05:38
DX: E11.51 Type 2 diabetes mellitus with diabetic peripheral angiopathy without gangrene (principal); I70.213 Atherosclerosis of native arteries of extremities with intermittent claudication, bilateral legs; I10 Essential (primary) hypertension; Z88.2 Allergy status to sulfonamides; Z88.6 Allergy status to analgesic agent; Z79.4 Long term (current) use of insulin; Z79.82 Long term (current) use of aspirin; Z79.899 Other long term (current) drug therapy
CPT/HCPCS: 76937; 82947; 85347; 99152; 99153; C1725; C1760; C1769; C1887; C1894; J1644; J2250; J2785; J3010; J7030; J7040; Q9967

== ENCOUNTER 2022-04-15 05:17 | Day surgery (SDC) | payer OTHER | END 2022-04-15 22:58 | disposition home or self-care (01) | LOC: WOUND 05:17 | DX: E11.621 Type 2 diabetes mellitus with foot ulcer (principal); L97.512 Non-pressure chronic ulcer of other part of right foot with fat layer exposed; L59.8 Other specified disorders of the skin and subcutaneous tissue related to radiation; E11.40 Type 2 diabetes mellitus with diabetic neuropathy, unspecified; E11.51 Type 2 diabetes mellitus with diabetic peripheral angiopathy without gangrene; S91.101D Unspecified open wound of right great toe without damage to nail, subsequent encounter; X58.XXXD Exposure to other specified factors, subsequent encounter; Z85.3 Personal history of malignant neoplasm of breast; Z92.3 Personal history of irradiation | CPT/HCPCS: G0463 ==

== ENCOUNTER 2022-04-29 04:56 | Day surgery (SDC) | payer OTHER | END 2022-04-29 23:56 | disposition home or self-care (01) | LOC: WOUND 04:56 | DX: E11.621 Type 2 diabetes mellitus with foot ulcer (principal); L97.512 Non-pressure chronic ulcer of other part of right foot with fat layer exposed; E11.40 Type 2 diabetes mellitus with diabetic neuropathy, unspecified; E11.51 Type 2 diabetes mellitus with diabetic peripheral angiopathy without gangrene; L59.9 Disorder of the skin and subcutaneous tissue related to radiation, unspecified; Z92.3 Personal history of irradiation; Z85.3 Personal history of malignant neoplasm of breast | CPT/HCPCS: A9270; G0463 ==

== ENCOUNTER 2022-05-12 05:01 | Day surgery (SDC) | payer OTHER | END 2022-05-12 23:29 | disposition home or self-care (01) | LOC: WOUND 05:01 | DX: E11.621 Type 2 diabetes mellitus with foot ulcer (principal); L97.522 Non-pressure chronic ulcer of other part of left foot with fat layer exposed; E11.40 Type 2 diabetes mellitus with diabetic neuropathy, unspecified; E11.51 Type 2 diabetes mellitus with diabetic peripheral angiopathy without gangrene; L59.8 Other specified disorders of the skin and subcutaneous tissue related to radiation; Z85.3 Personal history of malignant neoplasm of breast; Z92.3 Personal history of irradiation | CPT/HCPCS: G0463 ==

== ENCOUNTER 2022-05-26 01:06 | Day surgery (SDC) | payer OTHER | END 2022-05-26 23:50 | disposition home or self-care (01) | LOC: WOUND 01:06 | DX: E11.621 Type 2 diabetes mellitus with foot ulcer (principal); L97.512 Non-pressure chronic ulcer of other part of right foot with fat layer exposed; E11.40 Type 2 diabetes mellitus with diabetic neuropathy, unspecified; E11.51 Type 2 diabetes mellitus with diabetic peripheral angiopathy without gangrene; Z85.3 Personal history of malignant neoplasm of breast; L59.8 Other specified disorders of the skin and subcutaneous tissue related to radiation; Z92.3 Personal history of irradiation | CPT/HCPCS: G0463 ==

== ENCOUNTER 2022-06-02 03:36 | Day surgery (SDC) | payer OTHER | END 2022-06-02 23:03 | disposition home or self-care (01) | LOC: WOUND 03:36 | DX: L59.8 Other specified disorders of the skin and subcutaneous tissue related to radiation (principal); E11.621 Type 2 diabetes mellitus with foot ulcer; L97.512 Non-pressure chronic ulcer of other part of right foot with fat layer exposed; E11.40 Type 2 diabetes mellitus with diabetic neuropathy, unspecified; E11.51 Type 2 diabetes mellitus with diabetic peripheral angiopathy without gangrene; S91.101D Unspecified open wound of right great toe without damage to nail, subsequent encounter; Z85.3 Personal history of malignant neoplasm of breast; Z92.3 Personal history of irradiation | CPT/HCPCS: G0463 ==

== ENCOUNTER 2022-06-09 01:09 | Day surgery (SDC) | payer OTHER | END 2022-06-10 00:49 | disposition home or self-care (01) | LOC: WOUND 01:09 | DX: E11.51 Type 2 diabetes mellitus with diabetic peripheral angiopathy without gangrene (principal); L98.492 Non-pressure chronic ulcer of skin of other sites with fat layer exposed; I70.25 Atherosclerosis of native arteries of other extremities with ulceration; E11.40 Type 2 diabetes mellitus with diabetic neuropathy, unspecified; L59.8 Other specified disorders of the skin and subcutaneous tissue related to radiation; Z85.3 Personal history of malignant neoplasm of breast; Z92.3 Personal history of irradiation | CPT/HCPCS: G0463 ==

== ENCOUNTER 2022-06-16 01:30 | Day surgery (SDC) | payer OTHER | END 2022-06-16 23:19 | disposition home or self-care (01) | LOC: WOUND 01:30 | DX: L59.8 Other specified disorders of the skin and subcutaneous tissue related to radiation (principal); E11.621 Type 2 diabetes mellitus with foot ulcer; L97.512 Non-pressure chronic ulcer of other part of right foot with fat layer exposed; E11.40 Type 2 diabetes mellitus with diabetic neuropathy, unspecified; E11.51 Type 2 diabetes mellitus with diabetic peripheral angiopathy without gangrene; S91.101D Unspecified open wound of right great toe without damage to nail, subsequent encounter; Z85.3 Personal history of malignant neoplasm of breast; Z92.3 Personal history of irradiation | CPT/HCPCS: G0463 ==

== ENCOUNTER 2022-07-23 02:10 | Day surgery (SDC) | payer OTHER | END 2022-07-23 23:38 | disposition home or self-care (01) | LOC: WOUND 02:10 | DX: E11.621 Type 2 diabetes mellitus with foot ulcer (principal); L97.512 Non-pressure chronic ulcer of other part of right foot with fat layer exposed; L59.8 Other specified disorders of the skin and subcutaneous tissue related to radiation; Z85.3 Personal history of malignant neoplasm of breast; Z92.3 Personal history of irradiation; E11.40 Type 2 diabetes mellitus with diabetic neuropathy, unspecified; E11.51 Type 2 diabetes mellitus with diabetic peripheral angiopathy without gangrene | CPT/HCPCS: A9270; G0463 ==

== ENCOUNTER 2022-07-30 04:13 | Day surgery (SDC) | payer OTHER | END 2022-07-30 22:55 | disposition home or self-care (01) | LOC: WOUND 04:13 | DX: E11.621 Type 2 diabetes mellitus with foot ulcer (principal); L97.512 Non-pressure chronic ulcer of other part of right foot with fat layer exposed; Z85.3 Personal history of malignant neoplasm of breast; Z92.3 Personal history of irradiation; E11.40 Type 2 diabetes mellitus with diabetic neuropathy, unspecified; E11.51 Type 2 diabetes mellitus with diabetic peripheral angiopathy without gangrene | CPT/HCPCS: A9270; G0463 ==

== ENCOUNTER 2022-08-04 02:03 | Day surgery (SDC) | payer OTHER | END 2022-08-04 23:25 | disposition home or self-care (01) | LOC: WOUND 02:03 | DX: E11.621 Type 2 diabetes mellitus with foot ulcer (principal); L97.512 Non-pressure chronic ulcer of other part of right foot with fat layer exposed; L59.8 Other specified disorders of the skin and subcutaneous tissue related to radiation; E11.51 Type 2 diabetes mellitus with diabetic peripheral angiopathy without gangrene; E11.40 Type 2 diabetes mellitus with diabetic neuropathy, unspecified; S91.101D Unspecified open wound of right great toe without damage to nail, subsequent encounter; Z85.3 Personal history of malignant neoplasm of breast; Z92.3 Personal history of irradiation | CPT/HCPCS: A9270; G0463 ==

== ENCOUNTER 2022-08-11 02:48 | Day surgery (SDC) | payer OTHER | END 2022-08-11 23:15 | disposition home or self-care (01) | LOC: WOUND 02:48 | DX: E11.621 Type 2 diabetes mellitus with foot ulcer (principal); L97.512 Non-pressure chronic ulcer of other part of right foot with fat layer exposed; E11.40 Type 2 diabetes mellitus with diabetic neuropathy, unspecified; Z85.3 Personal history of malignant neoplasm of breast; E11.51 Type 2 diabetes mellitus with diabetic peripheral angiopathy without gangrene; Z92.3 Personal history of irradiation | CPT/HCPCS: A9270; G0463 ==

== ENCOUNTER 2022-08-18 00:16 | Day surgery (SDC) | payer OTHER | END 2022-08-18 22:49 | disposition home or self-care (01) | LOC: WOUND 00:16 | DX: E11.621 Type 2 diabetes mellitus with foot ulcer (principal); L97.512 Non-pressure chronic ulcer of other part of right foot with fat layer exposed; Z85.3 Personal history of malignant neoplasm of breast; Z92.3 Personal history of irradiation; E11.40 Type 2 diabetes mellitus with diabetic neuropathy, unspecified; E11.51 Type 2 diabetes mellitus with diabetic peripheral angiopathy without gangrene | CPT/HCPCS: A9270 ==

== ENCOUNTER 2022-08-25 03:00 | Day surgery (SDC) | payer OTHER | END 2022-08-25 23:06 | disposition home or self-care (01) | LOC: WOUND 03:00 | DX: E11.621 Type 2 diabetes mellitus with foot ulcer (principal); L97.512 Non-pressure chronic ulcer of other part of right foot with fat layer exposed; L59.8 Other specified disorders of the skin and subcutaneous tissue related to radiation; E11.40 Type 2 diabetes mellitus with diabetic neuropathy, unspecified; E11.51 Type 2 diabetes mellitus with diabetic peripheral angiopathy without gangrene; S91.101D Unspecified open wound of right great toe without damage to nail, subsequent encounter; E11.69 Type 2 diabetes mellitus with other specified complication; M86.8X8 Other osteomyelitis, other site; Z85.3 Personal history of malignant neoplasm of breast; Z92.3 Personal history of irradiation; Z90.13 Acquired absence of bilateral breasts and nipples | CPT/HCPCS: A9270; G0463 ==

== ENCOUNTER 2022-09-01 01:51 | Day surgery (SDC) | payer OTHER | END 2022-09-01 23:37 | disposition home or self-care (01) | LOC: WOUND 01:51 | DX: E11.621 Type 2 diabetes mellitus with foot ulcer (principal); L97.512 Non-pressure chronic ulcer of other part of right foot with fat layer exposed; Z85.3 Personal history of malignant neoplasm of breast; E11.40 Type 2 diabetes mellitus with diabetic neuropathy, unspecified; E11.51 Type 2 diabetes mellitus with diabetic peripheral angiopathy without gangrene; E11.69 Type 2 diabetes mellitus with other specified complication; M86.8X8 Other osteomyelitis, other site | CPT/HCPCS: A9270; G0463 ==

== ENCOUNTER 2022-09-08 02:01 | Day surgery (SDC) | payer OTHER | END 2022-09-08 23:30 | disposition home or self-care (01) | LOC: WOUND 02:01 | DX: L59.8 Other specified disorders of the skin and subcutaneous tissue related to radiation (principal); E11.621 Type 2 diabetes mellitus with foot ulcer; L97.512 Non-pressure chronic ulcer of other part of right foot with fat layer exposed; E11.40 Type 2 diabetes mellitus with diabetic neuropathy, unspecified; E11.51 Type 2 diabetes mellitus with diabetic peripheral angiopathy without gangrene; S91.101D Unspecified open wound of right great toe without damage to nail, subsequent encounter; E11.69 Type 2 diabetes mellitus with other specified complication; M86.8X8 Other osteomyelitis, other site; Z85.3 Personal history of malignant neoplasm of breast; Z92.3 Personal history of irradiation | CPT/HCPCS: A9270; G0463 ==

== ENCOUNTER 2022-09-15 01:32 | Day surgery (SDC) | payer OTHER | END 2022-09-15 23:37 | disposition home or self-care (01) | DX: E11.621 Type 2 diabetes mellitus with foot ulcer (principal); L97.512 Non-pressure chronic ulcer of other part of right foot with fat layer exposed; Z85.3 Personal history of malignant neoplasm of breast; E11.40 Type 2 diabetes mellitus with diabetic neuropathy, unspecified; E11.51 Type 2 diabetes mellitus with diabetic peripheral angiopathy without gangrene ==

== ENCOUNTER 2022-09-22 01:19 | Day surgery (SDC) | payer OTHER | END 2022-09-22 22:59 | disposition home or self-care (01) | LOC: WOUND 01:19 | DX: E11.621 Type 2 diabetes mellitus with foot ulcer (principal); L97.512 Non-pressure chronic ulcer of other part of right foot with fat layer exposed; L59.8 Other specified disorders of the skin and subcutaneous tissue related to radiation; Z85.3 Personal history of malignant neoplasm of breast; Z92.3 Personal history of irradiation; E11.40 Type 2 diabetes mellitus with diabetic neuropathy, unspecified; E11.51 Type 2 diabetes mellitus with diabetic peripheral angiopathy without gangrene; E11.69 Type 2 diabetes mellitus with other specified complication; M86.8X8 Other osteomyelitis, other site | CPT/HCPCS: A9270; G0463 ==

== ENCOUNTER 2022-09-29 01:49 | Day surgery (SDC) | payer OTHER | END 2022-09-29 23:06 | disposition home or self-care (01) | LOC: WOUND 01:49 | DX: E11.621 Type 2 diabetes mellitus with foot ulcer (principal); L97.512 Non-pressure chronic ulcer of other part of right foot with fat layer exposed; L59.8 Other specified disorders of the skin and subcutaneous tissue related to radiation; Z85.3 Personal history of malignant neoplasm of breast; Z92.3 Personal history of irradiation; E11.40 Type 2 diabetes mellitus with diabetic neuropathy, unspecified; E11.51 Type 2 diabetes mellitus with diabetic peripheral angiopathy without gangrene; E11.69 Type 2 diabetes mellitus with other specified complication; M86.8X8 Other osteomyelitis, other site | CPT/HCPCS: A9270; G0463 ==

== ENCOUNTER 2022-10-07 06:48 | Day surgery (SDC) | payer OTHER ==
[~2022-10-07] VITALS: Ht 167.6 cm; Wt 71.0 kg
[~2022-10-07 06:48] MED LIST changes: +Aspir 8181 MG PO
--- NOTE | 2022-10-07 11:49 | NUR ---
PT REPORT FROM AMY WILLETT. PT RESTING IN BED.
--- NOTE | 2022-10-07 14:20 | NUR ---
PT AMBULATES TO RESTROOM AND BACK WITHOUT DIFF. PT DRESSINGS ON R PT REDRESSED. NO BLEEDING OR HEMATOMA NOTED. VSS. NADN. CALL LIGHT WITHIN REACH. PT EATING LUNCH AT THIS TIME.
--- NOTE | 2022-10-07 15:13 | NUR ---
PT GIVEN DC INSTRUCTIONS AND VERBALZIE UNDERSTANDING. IV OUT. PT CHANGED INTO CLOTHES. GROIN SITE SOFT. NO BLEEDING NOTED. PT TAKEN TO LBY VIA WC WHERE SON WILL TAKE PT HOME.
== END 2022-10-07 15:05 | disposition home or self-care (01) ==
LOC: MHTC 06:48
DX: E11.51 Type 2 diabetes mellitus with diabetic peripheral angiopathy without gangrene (principal); I70.221 Atherosclerosis of native arteries of extremities with rest pain, right leg; I70.212 Atherosclerosis of native arteries of extremities with intermittent claudication, left leg; L97.519 Non-pressure chronic ulcer of other part of right foot with unspecified severity; I10 Essential (primary) hypertension; G43.909 Migraine, unspecified, not intractable, without status migrainosus; M06.9 Rheumatoid arthritis, unspecified; Z89.411 Acquired absence of right great toe; Z88.6 Allergy status to analgesic agent; Z88.8 Allergy status to other drugs, medicaments and biological substances; Z88.2 Allergy status to sulfonamides; Z79.82 Long term (current) use of aspirin; Z79.01 Long term (current) use of anticoagulants; Z79.4 Long term (current) use of insulin; Z79.84 Long term (current) use of oral hypoglycemic drugs
CPT/HCPCS: 76937; 82947; 85347; 99152; 99153; C1725; C1760; C1769; C1887; C1894; J1644; J2250; J3010; J7030; J7040; Q9967

== ENCOUNTER 2022-10-10 01:33 | Day surgery (SDC) | payer OTHER | END 2022-10-11 23:34 | disposition home or self-care (01) | LOC: WOUND 01:33 | DX: E11.621 Type 2 diabetes mellitus with foot ulcer (principal); L97.512 Non-pressure chronic ulcer of other part of right foot with fat layer exposed; L59.8 Other specified disorders of the skin and subcutaneous tissue related to radiation; Z85.3 Personal history of malignant neoplasm of breast; Z92.3 Personal history of irradiation; E11.40 Type 2 diabetes mellitus with diabetic neuropathy, unspecified; E11.51 Type 2 diabetes mellitus with diabetic peripheral angiopathy without gangrene; E11.69 Type 2 diabetes mellitus with other specified complication; M86.8X8 Other osteomyelitis, other site | CPT/HCPCS: A9270; G0463 ==

== ENCOUNTER 2022-10-22 01:00 | Day surgery (SDC) | payer OTHER | END 2022-10-22 23:12 | disposition home or self-care (01) | LOC: HBO 01:00 | DX: E11.69 Type 2 diabetes mellitus with other specified complication (principal); M86.8X8 Other osteomyelitis, other site; L59.8 Other specified disorders of the skin and subcutaneous tissue related to radiation; Z85.3 Personal history of malignant neoplasm of breast; Z92.3 Personal history of irradiation; E11.621 Type 2 diabetes mellitus with foot ulcer; I73.9 Peripheral vascular disease, unspecified | CPT/HCPCS: 82947; G0277 ==

== ENCOUNTER 2022-10-29 04:14 | Day surgery (SDC) | payer OTHER | END 2022-10-29 23:08 | disposition home or self-care (01) | LOC: HBO 04:14 | DX: E11.69 Type 2 diabetes mellitus with other specified complication (principal); M86.671 Other chronic osteomyelitis, right ankle and foot; E11.40 Type 2 diabetes mellitus with diabetic neuropathy, unspecified; L59.8 Other specified disorders of the skin and subcutaneous tissue related to radiation; E11.621 Type 2 diabetes mellitus with foot ulcer; E11.51 Type 2 diabetes mellitus with diabetic peripheral angiopathy without gangrene; Z85.3 Personal history of malignant neoplasm of breast; Z92.3 Personal history of irradiation | CPT/HCPCS: 82947; G0277 ==

== ENCOUNTER 2022-10-30 02:16 | Day surgery (SDC) | payer OTHER | END 2022-10-30 22:44 | disposition home or self-care (01) | LOC: HBO 02:16 | DX: E11.621 Type 2 diabetes mellitus with foot ulcer (principal); L97.519 Non-pressure chronic ulcer of other part of right foot with unspecified severity; M86.8X8 Other osteomyelitis, other site; E11.40 Type 2 diabetes mellitus with diabetic neuropathy, unspecified; L59.8 Other specified disorders of the skin and subcutaneous tissue related to radiation; E11.51 Type 2 diabetes mellitus with diabetic peripheral angiopathy without gangrene; Z85.3 Personal history of malignant neoplasm of breast; Z92.3 Personal history of irradiation | CPT/HCPCS: 82947; G0277 ==

== ENCOUNTER 2022-10-31 03:20 | Day surgery (SDC) | payer OTHER | END 2022-10-31 23:16 | disposition home or self-care (01) | LOC: HBO 03:20 | DX: E11.69 Type 2 diabetes mellitus with other specified complication (principal); M86.8X8 Other osteomyelitis, other site; E11.40 Type 2 diabetes mellitus with diabetic neuropathy, unspecified; L59.8 Other specified disorders of the skin and subcutaneous tissue related to radiation; Z85.3 Personal history of malignant neoplasm of breast; Z92.3 Personal history of irradiation; E11.621 Type 2 diabetes mellitus with foot ulcer; E11.51 Type 2 diabetes mellitus with diabetic peripheral angiopathy without gangrene; S91.101A Unspecified open wound of right great toe without damage to nail, initial encounter | CPT/HCPCS: 82947; G0277 ==

== ENCOUNTER 2022-11-03 03:11 | Day surgery (SDC) | payer OTHER | END 2022-11-03 23:09 | disposition home or self-care (01) | LOC: HBO 03:11 | DX: E11.69 Type 2 diabetes mellitus with other specified complication (principal); M86.671 Other chronic osteomyelitis, right ankle and foot; E11.40 Type 2 diabetes mellitus with diabetic neuropathy, unspecified; L59.8 Other specified disorders of the skin and subcutaneous tissue related to radiation; Z85.3 Personal history of malignant neoplasm of breast; Z92.3 Personal history of irradiation; E11.621 Type 2 diabetes mellitus with foot ulcer; E11.51 Type 2 diabetes mellitus with diabetic peripheral angiopathy without gangrene; S91.101A Unspecified open wound of right great toe without damage to nail, initial encounter | CPT/HCPCS: 82947; G0277 ==

== ENCOUNTER 2022-11-04 01:26 | Day surgery (SDC) | payer OTHER | END 2022-11-04 22:48 | disposition home or self-care (01) | LOC: HBO 01:26 | DX: E11.69 Type 2 diabetes mellitus with other specified complication (principal); E11.40 Type 2 diabetes mellitus with diabetic neuropathy, unspecified; L59.8 Other specified disorders of the skin and subcutaneous tissue related to radiation; Z85.3 Personal history of malignant neoplasm of breast; Z92.3 Personal history of irradiation; E11.621 Type 2 diabetes mellitus with foot ulcer; E11.51 Type 2 diabetes mellitus with diabetic peripheral angiopathy without gangrene; S91.101D Unspecified open wound of right great toe without damage to nail, subsequent encounter | CPT/HCPCS: 82947; G0277 ==

== ENCOUNTER 2022-11-05 05:35 | Day surgery (SDC) | payer OTHER | END 2022-11-05 23:05 | disposition home or self-care (01) | LOC: HBO 05:35 | DX: E11.69 Type 2 diabetes mellitus with other specified complication (principal); E11.40 Type 2 diabetes mellitus with diabetic neuropathy, unspecified; E11.621 Type 2 diabetes mellitus with foot ulcer; L59.8 Other specified disorders of the skin and subcutaneous tissue related to radiation; M86.8X8 Other osteomyelitis, other site; I73.9 Peripheral vascular disease, unspecified; Z79.4 Long term (current) use of insulin; Z85.3 Personal history of malignant neoplasm of breast; Z92.3 Personal history of irradiation | CPT/HCPCS: 82947; G0277 ==

== ENCOUNTER 2022-11-11 04:45 | Day surgery (SDC) | payer OTHER | END 2022-11-11 22:56 | disposition home or self-care (01) | LOC: HBO 04:45 | DX: E11.69 Type 2 diabetes mellitus with other specified complication (principal); M86.8X8 Other osteomyelitis, other site; E11.40 Type 2 diabetes mellitus with diabetic neuropathy, unspecified; L59.8 Other specified disorders of the skin and subcutaneous tissue related to radiation; E11.621 Type 2 diabetes mellitus with foot ulcer; I73.9 Peripheral vascular disease, unspecified; Z92.3 Personal history of irradiation; Z85.3 Personal history of malignant neoplasm of breast | CPT/HCPCS: 82947; G0277 ==

== ENCOUNTER 2022-11-12 01:42 | Day surgery (SDC) | payer OTHER | END 2022-11-12 22:55 | disposition home or self-care (01) | LOC: HBO 01:42 | DX: E11.69 Type 2 diabetes mellitus with other specified complication (principal); E11.40 Type 2 diabetes mellitus with diabetic neuropathy, unspecified; E11.621 Type 2 diabetes mellitus with foot ulcer; M86.8X8 Other osteomyelitis, other site; L59.8 Other specified disorders of the skin and subcutaneous tissue related to radiation; I73.9 Peripheral vascular disease, unspecified; Z85.3 Personal history of malignant neoplasm of breast; Z92.3 Personal history of irradiation | CPT/HCPCS: 82947; G0277 ==

== ENCOUNTER 2022-11-13 02:58 | Day surgery (SDC) | payer OTHER | END 2022-11-13 23:09 | disposition home or self-care (01) | LOC: WOUND 02:58 | DX: E11.621 Type 2 diabetes mellitus with foot ulcer (principal); L97.512 Non-pressure chronic ulcer of other part of right foot with fat layer exposed; L89.612 Pressure ulcer of right heel, stage 2; M86.8X8 Other osteomyelitis, other site; E11.40 Type 2 diabetes mellitus with diabetic neuropathy, unspecified; L59.8 Other specified disorders of the skin and subcutaneous tissue related to radiation; Z85.3 Personal history of malignant neoplasm of breast; Z92.3 Personal history of irradiation; I73.9 Peripheral vascular disease, unspecified | CPT/HCPCS: A9270 ==

== ENCOUNTER 2022-11-13 03:00 | Day surgery (SDC) | payer OTHER | END 2022-11-13 23:09 | disposition home or self-care (01) | LOC: HBO 03:00 | DX: M86.8X8 Other osteomyelitis, other site (principal); E11.69 Type 2 diabetes mellitus with other specified complication; E11.40 Type 2 diabetes mellitus with diabetic neuropathy, unspecified; L59.8 Other specified disorders of the skin and subcutaneous tissue related to radiation; E11.51 Type 2 diabetes mellitus with diabetic peripheral angiopathy without gangrene; Z85.3 Personal history of malignant neoplasm of breast; Z92.3 Personal history of irradiation | CPT/HCPCS: 82947; G0277 ==

== ENCOUNTER 2022-11-14 01:47 | Day surgery (SDC) | payer OTHER | END 2022-11-14 22:50 | disposition home or self-care (01) | LOC: HBO 01:47 | DX: E11.621 Type 2 diabetes mellitus with foot ulcer (principal); L59.8 Other specified disorders of the skin and subcutaneous tissue related to radiation; I73.9 Peripheral vascular disease, unspecified; M86.8X8 Other osteomyelitis, other site; S91.101A Unspecified open wound of right great toe without damage to nail, initial encounter; E11.40 Type 2 diabetes mellitus with diabetic neuropathy, unspecified; Z85.3 Personal history of malignant neoplasm of breast; Z92.3 Personal history of irradiation | CPT/HCPCS: 82947; G0277 ==

== ENCOUNTER 2022-11-20 03:43 | Day surgery (SDC) | payer OTHER | END 2022-11-20 23:34 | disposition home or self-care (01) | LOC: WOUND 03:43 | DX: E11.621 Type 2 diabetes mellitus with foot ulcer (principal); E11.69 Type 2 diabetes mellitus with other specified complication; M86.8X8 Other osteomyelitis, other site; S91.101D Unspecified open wound of right great toe without damage to nail, subsequent encounter; L59.8 Other specified disorders of the skin and subcutaneous tissue related to radiation; I73.9 Peripheral vascular disease, unspecified; Z85.3 Personal history of malignant neoplasm of breast; Z92.3 Personal history of irradiation | CPT/HCPCS: A9270 ==

== ENCOUNTER 2022-11-20 03:49 | Day surgery (SDC) | payer OTHER | END 2022-11-20 23:34 | disposition home or self-care (01) | LOC: HBO 03:49 | DX: E11.69 Type 2 diabetes mellitus with other specified complication (principal); M86.8X8 Other osteomyelitis, other site; E11.40 Type 2 diabetes mellitus with diabetic neuropathy, unspecified; L59.8 Other specified disorders of the skin and subcutaneous tissue related to radiation; E11.621 Type 2 diabetes mellitus with foot ulcer; I73.9 Peripheral vascular disease, unspecified; S91.101D Unspecified open wound of right great toe without damage to nail, subsequent encounter; X58.XXXD Exposure to other specified factors, subsequent encounter; Z85.3 Personal history of malignant neoplasm of breast; Z92.3 Personal history of irradiation | CPT/HCPCS: 82947; G0277 ==

== ENCOUNTER → 2022-12-02 | Outpatient (CLI) | payer OTHER | END | disposition home or self-care (01) | LOC: LAB 16:00 → LAB SHORT 16:00 | DX: E11.42 Type 2 diabetes mellitus with diabetic polyneuropathy (principal) | CPT/HCPCS: 87070; 87075; 87077; 87147; 87186; 87205 ==

== ENCOUNTER → 2022-12-08 | Outpatient (CLI) | payer OTHER | LOC: LAB 15:04 → LAB SHORT 15:04 | DX: E11.42 Type 2 diabetes mellitus with diabetic polyneuropathy (principal); E11.51 Type 2 diabetes mellitus with diabetic peripheral angiopathy without gangrene; E11.621 Type 2 diabetes mellitus with foot ulcer; M21.6X1 Other acquired deformities of right foot; M20.41 Other hammer toe(s) (acquired), right foot; M20.5X1 Other deformities of toe(s) (acquired), right foot | CPT/HCPCS: 88305; 88311 ==

== ENCOUNTER → 2022-12-08 | Outpatient (CLI) | payer OTHER | END | disposition home or self-care (01) | LOC: LAB SHORT 13:41 | DX: E11.42 Type 2 diabetes mellitus with diabetic polyneuropathy (principal); E11.51 Type 2 diabetes mellitus with diabetic peripheral angiopathy without gangrene; E11.621 Type 2 diabetes mellitus with foot ulcer; M21.6X1 Other acquired deformities of right foot; M20.41 Other hammer toe(s) (acquired), right foot; M20.5X1 Other deformities of toe(s) (acquired), right foot | CPT/HCPCS: 87071; 87075; 87077; 87147; 87186; 87205 ==

== ENCOUNTER → 2022-12-29 | Outpatient (CLI) | payer OTHER | END | disposition home or self-care (01) | LOC: LAB SHORT 12:10 → PLD 12:10 | DX: E11.69 Type 2 diabetes mellitus with other specified complication (principal); M86.171 Other acute osteomyelitis, right ankle and foot | CPT/HCPCS: 88305; 88311 ==

== ENCOUNTER → 2023-01-19 | Outpatient (CLI) | payer OTHER | END | disposition home or self-care (01) | LOC: LAB 16:50 → LAB SHORT 16:50 | DX: E11.8 Type 2 diabetes mellitus with unspecified complications (principal); Z89.421 Acquired absence of other right toe(s) | CPT/HCPCS: 87070; 87075; 87077; 87186; 87205 ==

== ENCOUNTER 2023-02-09 22:56 | Emergency (ER) | payer OTHER ==
[~2023-02-09] VITALS: Ht 167.6 cm; Wt 69.4 kg
[2023-02-09 23:04] VITALS: BP 122/68
== END 2023-02-09 23:54 | disposition home or self-care (01) ==
LOC: ER 22:56
DX: Z48.817 Encounter for surgical aftercare following surgery on the skin and subcutaneous tissue (principal); Z88.6 Allergy status to analgesic agent; Z88.2 Allergy status to sulfonamides; Z91.040 Latex allergy status; Z79.899 Other long term (current) drug therapy; Z79.4 Long term (current) use of insulin; Z79.82 Long term (current) use of aspirin
CPT/HCPCS: 99282; A9270

== ENCOUNTER 2023-03-15 01:38 | Observation (INO) | payer OTHER ==
[~2023-03-15] VITALS: Ht 167.6 cm; Wt 67.1 kg
[2023-03-15 01:50] LABS: BASOPHILS ABSOLUTE AUTO 0.11 K/mm3 (0.00-0.23); BASOPHILS PERCENT AUTO 1 % (0-2); EOSINOPHILS PERCENT AUTO 2 % (0-6); Hematocrit 28.5 % (33.0-51.0); Hemoglobin 9.2 g/dL (11.5-16.0); IMMATURE GRAN ABSOLUTE AUTO 0.06 K/mm3 (0.00-0.10); IMMATURE GRAN PERCENT AUTO 0 % (0-1); LYMPHOCYTES ABSOLUTE AUTO 2.25 K/mm3 (0.84-5.20); LYMPHOCYTES PERCENT AUTO 16 % (21-46); MONOCYTES ABSOLUTE AUTO 0.87 K/mm3 (0.16-1.47); MONOCYTES PERCENT AUTO 6 % (4-13); Mean Corpuscular HGB 27.9 pg (26.0-34.0); Mean Corpuscular HGB Conc 32.3 g/dL (31.5-36.5); Mean Corpuscular Volume 86 fL (80-100); NEUTROPHILS ABSOLUTE AUTO 10.77 K/mm3 (1.96-9.15); NEUTROPHILS PERCENT AUTO 75 % (41-73); Platelet Count 575 K/mm3 (150-400); RDW Standard Deviation 44.2 fL (35.1-46.3); White Blood Cell Count 14.36 K/mm3 (4.00-11.30)
[2023-03-15] MEDS ORDERED: TUMS500 MG PO (02:03)
[2023-03-15] MEDS ORDERED: METF500 PO (02:06)
[2023-03-15] MEDS ORDERED: GABA300 PO (02:07)
[2023-03-15 02:13] LABS: Albumin, Blood 2.7 g/dL (3.4-5.0); Albumin/Globulin Ratio 0.5 (0.8-1.8); Bilirubin, Total 0.1 mg/dL (0.1-1.0); Bun/Creatinine Ratio 37.4 (12.0-20.0); Calcium, Blood 9.2 mg/dL (8.5-10.1); Creatinine, Blood 0.91 mg/dL (0.40-1.00); Globulin, Blood 5.7 g/dL (2.2-4.0); Potassium, Blood 4.4 mmol/L (3.5-5.5); Total Protein, Blood 8.4 g/dL (6.4-8.2)
[2023-03-15 04:16] VITALS: BP 130/66
--- NOTE | 2023-03-15 04:53 | NUR ---
ADMISSION NOTE PT ARRIVED TO PCU AT APPROX 0350. SHE IS ALERT AND ORIENTED X 4, SHE IS ABLE TO MAKE HER NEEDS KNOWN AND WAS ORIENTED TO ROOM/UNIT WELL CALL LIGHT USE. PT NOTED TO HAVE R BKA ON 03/04. SHE TRANSFERED FROM ED BED TO PCU BED VIA ASSISTANCE USING SLIDER SHEET. VSS. Q1 BLOOD GLUCOSE MONITORING INTITIATED PER ORDERS. PT DENIES FEELING DIZZY, LIGHTHEADED OR SOB AT THIS TIME. SHE DENIES FEELINGS OF CHEST PAIN/PRESSURE. SHE REPORTED PRESSURE IN AMPUTATED LEG AT DRESSING SITE, DRESSING APPEARS D/C/I. NO COUGH NOTED. D5 IN 10/20 NS IS INFUSING PER EMAR ORDERS IN R WRIST IV, DRESSING OVER IV SITE CHANGED BY CONFORMAL PAD FORMER. REDNESS NOTED ON COCCYX AREA, SKIN IS INTACT, MEPILEX DRESSING PLACED BY THIS RN. L HEEL NOTED TO HAVE DIME SIZE RED AREA WELL, HEEL PROTECTOR PLACED BY THIS RN. PT WAS UNABLE TO PROVIDE MEDICATION ADMINISTRATION HISTORY, MED REC INCOMPLETE, WILL PASS ONTO ONCOMING RN TO CALL [facility] TO OBTAIN COMPLETE MEDICATION LIST. CALL LIGHT IS W/IN REACH. WILL CONTINUE TO MONITOR.
[2023-03-15] MEDS ORDERED: PYRI100 PO (05:35)
[2023-03-15] MEDS ORDERED: VITAMIN B122500 MC1 PO (05:39)
[2023-03-15] MEDS ORDERED: GABA300 (05:42)
[2023-03-15] MEDS ORDERED: DOCU100 PO (05:42)
[2023-03-15] MEDS ORDERED: MIRALAX17 GM PO (05:44)
[2023-03-15] MEDS ORDERED: ONDA4ODT (05:45)
[2023-03-15] MEDS ORDERED: OXYC10TA19 PO (05:52)
[2023-03-15] MEDS ORDERED: Acetaminophen650 M1 (05:53)
[2023-03-15] MEDS ORDERED: Promod946 ML PO (05:55)
[2023-03-15 07:03] VITALS: BP 120/66
[2023-03-15 07:33] LABS: BASOPHILS ABSOLUTE AUTO 0.11 K/mm3 (0.00-0.23); BASOPHILS PERCENT AUTO 1 % (0-2); EOSINOPHILS ABSOLUTE AUTO 0.26 K/mm3 (0.00-0.68); EOSINOPHILS PERCENT AUTO 2 % (0-6); Hematocrit 27.5 % (33.0-51.0); Hemoglobin 8.7 g/dL (11.5-16.0); IMMATURE GRAN ABSOLUTE AUTO 0.05 K/mm3 (0.00-0.10); IMMATURE GRAN PERCENT AUTO 0 % (0-1); LYMPHOCYTES ABSOLUTE AUTO 2.43 K/mm3 (0.84-5.20); LYMPHOCYTES PERCENT AUTO 18 % (21-46); MONOCYTES ABSOLUTE AUTO 0.86 K/mm3 (0.16-1.47); MONOCYTES PERCENT AUTO 7 % (4-13); Mean Corpuscular HGB 27.7 pg (26.0-34.0); Mean Corpuscular HGB Conc 31.6 g/dL (31.5-36.5); Mean Corpuscular Volume 88 fL (80-100); Mean Platelet Volume 9.3 fL (9.1-12.4); NEUTROPHILS ABSOLUTE AUTO 9.55 K/mm3 (1.96-9.15); NEUTROPHILS PERCENT AUTO 72 % (41-73); Platelet Count 540 K/mm3 (150-400); RDW Coefficient Variation 14.1 % (11.7-14.2); RDW Standard Deviation 45.4 fL (35.1-46.3); Red Blood Cell Count 3.14 M/mm3 (3.80-5.20); White Blood Cell Count 13.26 K/mm3 (4.00-11.30)
[2023-03-15 07:49] LABS: Albumin, Blood 2.6 g/dL (3.4-5.0); Albumin/Globulin Ratio 0.5 (0.8-1.8); Bilirubin, Total 0.3 mg/dL (0.1-1.0); Bun/Creatinine Ratio 32.1 (12.0-20.0); Calcium, Blood 9.2 mg/dL (8.5-10.1); Creatinine, Blood 0.97 mg/dL (0.40-1.00); Globulin, Blood 5.5 g/dL (2.2-4.0); Potassium, Blood 4.2 mmol/L (3.5-5.5); Total Protein, Blood 8.1 g/dL (6.4-8.2)
[2023-03-15 09:39] LABS: Percent Saturation 7.5 % (15.0-50.0)
[2023-03-15 16:52] VITALS: BP 101/58
--- NOTE | 2023-03-15 16:54 | NUR ---
SHIFT SUMMARY PT REMAINS ALERT AND ORIENTED. BP STABLE. HR NSR, BUT TELEMETRY DISCONTINUED. O2 SATS REMAIN ABOVE 90% ON RA. PT COMPLAINS OF PAIN TO RIGHT BKA SITE AND MEDICATED PER EMAR. BLOOD SUGARS HAVE DECREASED SINCE D5 AND 1/2NS WAS STOPPED. DR. COFFEY CALLED AND ORDERS RECEIVED. PLAN TO RECHECK BLOOD SUGARS Q1 HOUR THREE TIMES AND THEN REEVALUATE. PT HAS BEEN INCONTINENT AT TIMES THIS SHIFT AND THEN ABLE TO USE BSC AT TIMES TO VOID. PT ABLE TO REPOSITION HERSELF IN THE BED. WILL CONTINUE TO MONITOR AND REPORT TO ONCOMING RN.
[2023-03-15 19:23] VITALS: BP 107/53
[2023-03-15 23:03] VITALS: BP 115/54
[2023-03-16 03:06] VITALS: BP 121/72
[2023-03-16 03:57] LABS: BASOPHILS ABSOLUTE AUTO 0.13 K/mm3 (0.00-0.23); BASOPHILS PERCENT AUTO 1 % (0-2); EOSINOPHILS ABSOLUTE AUTO 0.32 K/mm3 (0.00-0.68); EOSINOPHILS PERCENT AUTO 3 % (0-6); Hematocrit 27.9 % (33.0-51.0); IMMATURE GRAN ABSOLUTE AUTO 0.06 K/mm3 (0.00-0.10); IMMATURE GRAN PERCENT AUTO 1 % (0-1); LYMPHOCYTES ABSOLUTE AUTO 2.14 K/mm3 (0.84-5.20); LYMPHOCYTES PERCENT AUTO 17 % (21-46); MONOCYTES ABSOLUTE AUTO 0.76 K/mm3 (0.16-1.47); MONOCYTES PERCENT AUTO 6 % (4-13); Mean Corpuscular HGB 27.8 pg (26.0-34.0); Mean Corpuscular HGB Conc 32.3 g/dL (31.5-36.5); Mean Corpuscular Volume 86 fL (80-100); Mean Platelet Volume 9.4 fL (9.1-12.4); NEUTROPHILS ABSOLUTE AUTO 9.43 K/mm3 (1.96-9.15); NEUTROPHILS PERCENT AUTO 73 % (41-73); Platelet Count 549 K/mm3 (150-400); RDW Coefficient Variation 13.9 % (11.7-14.2); RDW Standard Deviation 43.9 fL (35.1-46.3); Red Blood Cell Count 3.24 M/mm3 (3.80-5.20); White Blood Cell Count 12.84 K/mm3 (4.00-11.30)
[2023-03-16 04:19] LABS: Bun/Creatinine Ratio 25.6 (12.0-20.0); Calcium, Blood 9.2 mg/dL (8.5-10.1); Creatinine, Blood 0.86 mg/dL (0.40-1.00); Potassium, Blood 4.3 mmol/L (3.5-5.5)
--- NOTE | 2023-03-16 04:45 | NUR ---
SHIFT SUMMARY PT IS A/Ox4 AND COOPERATIVE WITH CARE PROVIDED BY MEMBERS OF STAFF. ANSWERS QUESTIONS APPROPRIATELY AND ABLE TO MAKE HER NEEDS KNOWN. NO ACUTE EVENTS OVERNIGHT. Q1 CBG CHECKS CONDUCTED ORDERED. BG LEVELS HAVE RANGED FROM 80-90'S T/O MOST OF THE NIGHT. 0400 CBG SHOWED SIGNS OF IMPROVEMENT WITH THE LEVEL IN THE 110'S. D5W/1/2NS RUNNING ORDERED VIA EMAR T/O THE NIGHT. CARDIAC JANE, PT IS MED W/O TELE, NO REPORTS OF CP OR PRESSURE. SBP HAS BEEN STABLE WELL. RESPIRATORY JANE, REMAINS ON RA WITH NO C/O SOB OR DYSPNEA. PAIN FROM R BKA ON 03/04 MANAGED WELL WITH PRN MEDICATIONS ORDERED VIA EMAR. PT IS CONTINENT/INCONTINENT, HAS INTERMITTENT BOUTS OF INCONTINENCE AT NIGHT. ABLE TO STAND PIVOT TO BSC WITH MINMAL ASSISTANCE FROM STAFF. NO NEW ORDERS AT THIS TIME, WILL REPORT TO ONCOMING RN. ARDEN DURHAM OF THIS NOTE.
[2023-03-16 07:31] VITALS: BP 109/72
[2023-03-16 15:27] VITALS: BP 114/64
--- NOTE | 2023-03-16 17:22 | NUR ---
SHIFT SUMMARY PT REMAINS ALERT AND ORIENTED. VS STABLE. PT DENIES ANY PAIN. BLOOD SUGARS HAVE REMAINED ABOVE 100. PT UP TO BATHROOM MULTIPLE TIMES THIS SHIFT WITH 1 ASSIST AND FWW. PT ABLE TO REPOSITION HERSELF IN THE BED. WILL CONTINUE TO MONITOR AND REPORT TO ONCOMING RN
[2023-03-16 17:57] VITALS: BP 129/68
[2023-03-16 19:13] VITALS: BP 120/59
[2023-03-17 04:02] VITALS: BP 120/70
--- NOTE | 2023-03-17 06:33 | NUR ---
SHIFT SUMMARY PT A&OX4, PLEASANT AND COOPERATIVE WITH CARE. MEDICATED ONCE FOR PAIN WITH TYLENOL. TOLERATING PO INTAKE. 1 ASSIST TO BATHROOM W/FWW. DRESSING CHANGED 03/16, SCANT DRAINAGE. NEW DRESSING C/D/I. BLOOD SUGARS Q4, >100. CALLS APPROPRIATELY, CALL LIGHT WITHIN REACH.
[2023-03-17 07:15] VITALS: BP 133/73
--- NOTE | 2023-03-17 13:29 | NUR ---
Pt. is resting in her bed, but responds when I enter the room and welcomes my visit. Pt. is pleasant, but verbalizes her difficult health journey. Listen with pastoral interest and empathy. Consider matters of personal davion and belief. Pt. displays evidence of a confident hope. Facilitated a more extensive life review and establish rapport. Pt. displays evidence of trust and encouragement. Prayed with Pt. Pt. verbalized gratitude for the spiritual care visit.
[2023-03-17 15:03] VITALS: BP 120/64
[2023-03-17 16:13] LABS: SARS-Cov-2 (COVID-19) PCR, MMC NEGATIVE (NEGATIVE)
[2023-03-17 19:31] VITALS: BP 104/58
--- NOTE | 2023-03-17 19:45 | NUR ---
SHIFT SUMMARY PT HAS DONE WELL T/O SHIFT. DECREASED PO INTAKE BUT GLUCOSE REMAINS GREATER THAN 100, NO COVERAGE INDICATED THIS SHIFT. PT MEDICATED ONCE FOR PAIN THIS SHIFT (SEE EMAR) NO AUTHORIZATION FROM [facility] TODAY FOR SNF, COVID TEST NEG.
[2023-03-18 04:35] VITALS: BP 118/73
[2023-03-18 07:19] VITALS: BP 94/54
--- NOTE | 2023-03-18 07:39 | NUR ---
SHIFT SUMMARY NO ACUTE CHANGES NOTED THROUGH THE NIGHT, PT REMAINS A&O X4, ON RA, VSS. PT WAS ABLT TO SLEEP THROUGH THE NIGHT, SHE WOKE UP THIS AM WITH A NATION, REPORTED THAT SHE STARTED TO HAVE A HEADACHE PRIOR TO BECOMING HYPOGLYCEMIC INITIALLY, SPOT CHECK WAS COMPLETED, GLUCOSE OF 130 NOTED. DRSG TO R BKA C/D/I, PAIN MNGD PER EMAR. CALL LIGHT IN REACH
[2023-03-18 09:23] VITALS: BP 106/68
--- NOTE | 2023-03-18 14:03 | NUR ---
DISCHARGE: REPORT PASSED TO JOSE ALFREDO DC RN. DC PACKET PRINTED AND GIVEN TO PT FAMILY WHO ARE TRANSPORTING PT BACK TO REHAB. SCRIPT FOR OXYCODONE ALSO PUT IN PACKET, COPY PLACED IN PAPER CHART. PT LEFT UNIT VIA WHEELCHAIR AT ABOUT 1400 WITH STUDENT NURSE AND FAMILY.
== END 2023-03-18 13:56 ==
LOC: ER 01:38 → PCU 01:39 → SURS 03-16 18:42
PROVIDERS: Emergency Medicine; Family Medicine; Internal Medicine; ADMIT Internal Medicine
DX: E11.649 Type 2 diabetes mellitus with hypoglycemia without coma (principal); I10 Essential (primary) hypertension; D64.9 Anemia, unspecified; M06.9 Rheumatoid arthritis, unspecified; C50.919 Malignant neoplasm of unspecified site of unspecified female breast; M54.9 Dorsalgia, unspecified; G89.29 Other chronic pain; Z89.511 Acquired absence of right leg below knee; Z88.2 Allergy status to sulfonamides; Z88.6 Allergy status to analgesic agent; Z88.8 Allergy status to other drugs, medicaments and biological substances; Z79.82 Long term (current) use of aspirin; Z79.01 Long term (current) use of anticoagulants; Z79.899 Other long term (current) drug therapy; D72.829 Elevated white blood cell count, unspecified; Z20.822 Contact with and (suspected) exposure to COVID-19
CPT/HCPCS: 36415; 71045; 80048; 80053; 82607; 82728; 82746; 82947; 83540; 83550; 83690; 85025; 96361; 96372; 96374; 96375; 96376; 97110; 97161; 97166; 97535; 99285-25; A9270; G0378; J1650; J2405; J7042; U0002

== ENCOUNTER 2023-09-15 13:37 | Emergency (ER) | payer OTHER ==
[~2023-09-15] VITALS: Ht 167.6 cm; Wt 65.8 kg
[~2023-09-15 13:37] MED LIST changes: +Acetaminophen650 M1; +METF500 PO; +MIRALAX17 GM PO; +ONDA4ODT; +OXYC10TA19 PO; +PYRI100 PO; +Promod946 ML PO; +TUMS500 MG PO; +VITAMIN B122500 MC1 PO
[2023-09-15 14:07] VITALS: BP 133/71
[2023-09-15] MEDS ORDERED: TOUJEO SOL300 UNIT/2 SC (15:28)
== END 2023-09-15 16:35 | disposition home or self-care (01) ==
LOC: ER 13:37
DX: S01.511A Laceration without foreign body of lip, initial encounter (principal); I10 Essential (primary) hypertension; E11.9 Type 2 diabetes mellitus without complications; W18.09XA Striking against other object with subsequent fall, initial encounter; Z79.4 Long term (current) use of insulin; Z79.82 Long term (current) use of aspirin; Z79.899 Other long term (current) drug therapy
CPT/HCPCS: 12011; 70450; 99283-25

== ENCOUNTER 2024-05-13 09:03 | Emergency (ER) | payer OTHER ==
[~2024-05-13] VITALS: Ht 167.6 cm; Wt 62.1 kg
[~2024-05-13 09:03] MED LIST changes: +CEFTRIAXONE2 G1 IV; +FERSU300 PO; +FOLI1 PO; +HUMALOG KW100 UNIT/1; +MAGNESIUM OXID500 MG PO; -METO100ER PO; +METO25ER PO; +TOUJEO SOL300 UNIT/2 SQ; +ZINC15 PO
[2024-05-13 09:53] LABS: BASOPHILS ABSOLUTE AUTO 0.06 K/mm3 (0.00-0.23); BASOPHILS PERCENT AUTO 1 % (0-2); EOSINOPHILS ABSOLUTE AUTO 0.09 K/mm3 (0.00-0.68); EOSINOPHILS PERCENT AUTO 1 % (0-6); Hematocrit 33.7 % (33.0-51.0); Hemoglobin 10.7 g/dL (11.5-16.0); IMMATURE GRAN ABSOLUTE AUTO 0.05 K/mm3 (0.00-0.10); IMMATURE GRAN PERCENT AUTO 0 % (0-1); LYMPHOCYTES ABSOLUTE AUTO 2.07 K/mm3 (0.84-5.20); LYMPHOCYTES PERCENT AUTO 17 % (21-46); MONOCYTES ABSOLUTE AUTO 0.56 K/mm3 (0.16-1.47); MONOCYTES PERCENT AUTO 5 % (4-13); Mean Corpuscular HGB 27.9 pg (26.0-34.0); Mean Corpuscular HGB Conc 31.8 g/dL (31.5-36.5); Mean Corpuscular Volume 88 fL (80-100); Mean Platelet Volume 9.3 fL (9.1-12.4); NEUTROPHILS ABSOLUTE AUTO 9.27 K/mm3 (1.96-9.15); NEUTROPHILS PERCENT AUTO 77 % (41-73); Platelet Count 554 K/mm3 (150-400); RDW Coefficient Variation 12.2 % (11.7-14.2); RDW Standard Deviation 39.3 fL (35.1-46.3); Red Blood Cell Count 3.83 M/mm3 (3.80-5.20)
[2024-05-13] MEDS ORDERED: FentaNYL Citrate 50 MCG/ML 2 ML Injection IV ONE (10:15)
[2024-05-13] MEDS ORDERED: Ondansetron HCl 2 MG / ML 2ML Vial IV ONE (10:15)
[2024-05-13 10:27] LABS: Albumin, Blood 2.3 g/dL (3.4-5.0); Albumin/Globulin Ratio 0.3 (0.8-1.8); Bilirubin, Total 0.3 mg/dL (0.1-1.0); Bun/Creatinine Ratio 29.9 (12.0-20.0); Creatinine, Blood 0.4 mg/dL (0.40-1.00); Globulin, Blood 7.6 g/dL (2.2-4.0); Potassium, Blood 3.6 mmol/L (3.5-5.5); Total Protein, Blood 9.9 g/dL (6.4-8.2)
[2024-05-13] MEDS ORDERED: Percocet 5-3251 EACH PO (12:11)
[2024-05-13 12:15] VITALS: BP 95/63
[2024-05-19] MEDS ORDERED: ONDA4ODT MM (16:28)
== END 2024-05-13 12:33 | disposition home or self-care (01) ==
LOC: ER 09:03
PROVIDERS: Physician Assistant
DX: R07.81 Pleurodynia (principal); M25.511 Pain in right shoulder; M54.2 Cervicalgia; R10.31 Right lower quadrant pain; I10 Essential (primary) hypertension; E11.9 Type 2 diabetes mellitus without complications; E78.5 Hyperlipidemia, unspecified; Z79.82 Long term (current) use of aspirin; Z79.899 Other long term (current) drug therapy; Z79.4 Long term (current) use of insulin; Z88.6 Allergy status to analgesic agent; Z88.2 Allergy status to sulfonamides; Z91.040 Latex allergy status; Z88.8 Allergy status to other drugs, medicaments and biological substances
CPT/HCPCS: 71046; 71260; 80053; 84484; 85025; 93005; 93010; 96374-59; 96375-59; 99284-25; J2405; J3010; Q9967

== ENCOUNTER 2024-09-29 16:28 | Inpatient (IN) | payer OTHER ==
[~2024-09-29] VITALS: Ht 154.9 cm; Wt 66.1 kg
[~2024-09-29 16:28] MED LIST changes: +GABA100 PO; -HUMALOG KW100 UNIT/1; +HUMALOG KW100 UNIT/1 SC; +ONDA4ODT MM; +Percocet 5-3251 EACH PO
[2024-09-29 17:13] LABS: Hematocrit 28.7 % (33.0-51.0); Hemoglobin 9.1 g/dL (11.5-16.0); Mean Corpuscular HGB 25.1 pg (26.0-34.0); Mean Corpuscular HGB Conc 31.7 g/dL (31.5-36.5); Mean Corpuscular Volume 79 fL (80-100); Mean Platelet Volume 9.5 fL (9.1-12.4); Platelet Count 394 K/mm3 (150-400); RDW Coefficient Variation 16.6 % (11.7-14.2); RDW Standard Deviation 47.8 fL (35.1-46.3); Red Blood Cell Count 3.63 M/mm3 (3.80-5.20); White Blood Cell Count 30.65 K/mm3 (4.00-11.30)
[2024-09-29] MEDS ORDERED: Lactated Ringer's 1,000 ML IV ONE ×2 (17:25→21:00)
[2024-09-29 17:29] LABS: Albumin, Blood 1.6 g/dL (3.4-5.0); Albumin/Globulin Ratio 0.2 (0.8-1.8); Bilirubin, Total 0.2 mg/dL (0.1-1.0); Bun/Creatinine Ratio 39.8 (12.0-20.0); Calcium, Blood 9.2 mg/dL (8.5-10.1); Creatinine, Blood 0.93 mg/dL (0.40-1.00); Globulin, Blood 6.6 g/dL (2.2-4.0); Total Protein, Blood 8.2 g/dL (6.4-8.2)
[2024-09-29 17:53] LABS: BAND PERCENT MAN 15 % (0-8); BASOPHILS PERCENT MAN 0 % (0-2); EOSINOPHILS PERCENT MAN 0 % (0-6); LYMPHOCYTES ABSOLUTE MAN 0.61 K/mm3 (0.84-5.20); LYMPHOCYTES PERCENT MAN 2 % (21-46); MONOCYTES ABSOLUTE MAN 0.61 K/mm3 (0.16-1.47); MONOCYTES PERCENT MAN 2 % (4-13); NEUTROPHILS ABSOLUTE MAN 29.42 K/mm3 (1.96-9.15); SEG NEUTROPHILS PERCENT MAN 81 % (41-73); TOTAL CELLS COUNTED 100
[2024-09-29 17:55] LABS: Magnesium, Blood 1.7 mg/dL (1.6-2.4)
[2024-09-29 18:10] LABS: Base Excess Venous 3.4 mmol/L; Bicarbonate Venous 26.5 mmol/L (24.0-30.0); pH Blood Venous 7.39 (7.34-7.37)
[2024-09-29] MEDS ORDERED: CefTRIAXone Sodium 1,000 MG in NS 100 ML IV ONE ×2 (18:10→21:00)
[2024-09-29] MEDS ORDERED: Azithromycin 500 MG in NS 250 ML IV ONE (18:10)
[2024-09-29 18:25] LABS: Beta-hydroxybutyrate 18.6 mg/dL (0.2-2.8)
[2024-09-29 18:35] LABS: Influenza A, PCR NEGATIVE (NEGATIVE); Influenza B, PCR NEGATIVE (NEGATIVE); Resp Syncytial Virus, PCR NEGATIVE (NEGATIVE); SARS-Cov-2 (COVID-19) PCR, MMC NEGATIVE (NEGATIVE)
[2024-09-29] MEDS ORDERED: NS 1,000 ML IV SCH (18:50)
[2024-09-29] MEDS ORDERED: Ketorolac Tromethamine 15mg Vial IV ONE (19:55)
[2024-09-29 19:57] LABS: Source, Urine Clean Catch
[2024-09-29 20:16] LABS: Appearance, Urine Turbid (Clear); Bilirubin, Urine Neg (Neg); Blood, Urine 5+ (Neg); Glucose Qualitative, Urine 4+ (Neg); Ketones, Urine 2+ (Neg); Leukocyte Esterase, Urine 3+ (Neg); Nitrite, Urine Neg (Neg); Protein, Urine 3+ (Neg); Specific Gravity, Urine 1.015 (1.003-1.022); Urobilinogen, Urine NORM (Normal)
[2024-09-29 20:28] LABS: Color, Urine Pale Yellow (P-Yellow)
[2024-09-29 20:30] LABS: Red Blood Cells, Urine TNTC /hpf (0-2); White Blood Cells, Urine TNTC /hpf (0-5)
[2024-09-29 20:32] LABS: Bacteria Many /hpf; Renal Epithelial Rare /hpf (0-Rare); Squamous Epithelial Cells Few /hpf (Few)
[2024-09-29 20:34] LABS: Hyaline Casts 0-2 /lpf (0-2); Yeast/Fungi Urine Rare /hpf
[2024-09-29] MEDS ORDERED: Ondansetron HCl 2 MG / ML 2ML Vial IV PRN (20:45)
[2024-09-29] MEDS ORDERED: FLU VACC TS2024-25(6MOS UP)/PF 45 MCG/0.5 ML SYRINGE IM ONE (20:50)
[2024-09-29] MEDS ORDERED: Acetaminophen 650 MG Supp PR PRN (20:50)
[2024-09-29] MEDS ORDERED: Lactated Ringer's 1,000 ML IV SCH (20:50)
[2024-09-29] MEDS ORDERED: Acetaminophen 650 MG Supp PR ONE (21:00)
[2024-09-29 21:09] LABS: Base Excess Venous 1.3 mmol/L; Bicarbonate Venous 25.9 mmol/L (24.0-30.0); PCO2 Venous 28.5 mmHg (38-42)
[2024-09-29 21:12] LABS: pH Blood Venous 7.53 (7.34-7.37)
[2024-09-29] MEDS ORDERED: Vancomycin HCL 1,250 MG in NS 250 ML IV ONE (21:20)
[2024-09-29] MEDS ORDERED: Acetaminophen 325 MG TABLET PO PRN (21:30)
[2024-09-29 21:37] LABS: U Amphetamine Screen Not Detected; U Barbituate Screen Not Detected; U Benzodiazapine Screen Not Detected; U Buprenorphine Screen Not Detected; U Cannabinoids Screen Not Detected; U Cocaine Screen Not Detected; U Methadone Screen Not Detected; U Methamphetamine Screen Not Detected; U Opiates Screen Not Detected; U Oxycodone Screen Not Detected; U Phencyclidine Screen Not Detected
[2024-09-29 22:19] LABS: Adenovirus Not Detected (NOT DETECT); Bordetella pertussis Not Detected (NOT DETECT); Chlamydophila pneumoniae Not Detected (NOT DETECT); Coronavirus 229E Not Detected (NOT DETECT); Coronavirus HKU1 Not Detected (NOT DETECT); Coronavirus NL63 Not Detected (NOT DETECT); Coronavirus OC43 Not Detected (NOT DETECT); Human Metapneumovirus Not Detected (NOT DETECT); Human Rhinovirus/Enterovirus Not Detected (NOT DETECT); Influenza A/2009-H1 Not Detected (NOT DETECT); Influenza A/H1 Not Detected (NOT DETECT); Influenza A/H3 Not Detected (NOT DETECT); Influenza B Not Detected (NOT DETECT); Mycoplasma pneumoniae Not Detected (NOT DETECT); Parainfluenza Virus 1 Not Detected (NOT DETECT); Parainfluenza Virus 2 Not Detected (NOT DETECT); Parainfluenza Virus 3 Not Detected (NOT DETECT); Parainfluenza Virus 4 Not Detected (NOT DETECT); Respiratory Syncytial Virus Not Detected (NOT DETECT); SARS-Cov-2 (COVID-19), BioFire Not Detected (NOT DETECT)
[2024-09-29 23:00] VITALS: BP 97/56
[2024-09-29 23:15] VITALS: BP 92/50
[2024-09-29 23:30] VITALS: BP 87/48
[2024-09-29] MEDS ORDERED: NS 500 ML IV SCH (23:35)
[2024-09-29 23:45] VITALS: BP 88/48
[2024-09-30] VITALS (31 sets, daily range): BP systolic 87–116; BP diastolic 49–68
[2024-09-30 00:19] LABS: Albumin, Blood 1.3 g/dL (3.4-5.0); Albumin/Globulin Ratio 0.2 (0.8-1.8); Bilirubin, Total 0.2 mg/dL (0.1-1.0); Bun/Creatinine Ratio 44.6 (12.0-20.0); Calcium, Blood 8.5 mg/dL (8.5-10.1); Creatinine, Blood 0.81 mg/dL (0.40-1.00); Globulin, Blood 5.5 g/dL (2.2-4.0); Magnesium, Blood 1.4 mg/dL (1.6-2.4); Phosphorus, Blood 1.9 mg/dL (2.5-4.9); Potassium, Blood 3.7 mmol/L (3.5-5.5); Total Protein, Blood 6.8 g/dL (6.4-8.2)
[2024-09-30] MEDS ORDERED: Potassium Phosphate Dibasic 30 MM in Dextrose 5% 500 ML IV STA (00:48)
[2024-09-30] MEDS ORDERED: Albumin (Human) 25gm/100ml 100 ML IV ONE (00:50)
[2024-09-30] MEDS ORDERED: Magnesium Sulf 2 GM/Water 50ML 50 ML IV ONE (00:50)
[2024-09-30] MEDS ORDERED: Insulin Glargine-Yfgn 100 Unit/mL 3 ML SYR SC SCH (01:00)
--- NOTE | 2024-09-30 06:28 | NUR ---
SHIFT SUMMERY PT WAS ADMITTED TO ICU 08 FROM ER AT 2300. DR SOUZA WAS NOTIFIED THAT PT WAS HERE. LABS WERE DRAWN AND CORRECTED PER MD ORDERS. TEMP GILL WAS PLACED PER MD ORDER. PT HAS BEEN SR-ST ON THE PHYSICIAN PRACTICE COORDINATOR. LEVOPHED WAS STARTED AFTER PT ARRIVAL FOR HYPOTENSION, SEE [facility]. PT IS DROWSY BUT AWAKENS EASILY TO VERBAL STIMULI, SHE IS ABLE TO FOLLOW DIRECTIONS. PT HAS RIGHT BKA. PT HAS REDDENED AREA ON COCCYX, DR SOUZA NOTIFIED, ALSO NOTIFIED OF ALL CRITICAL LAB VALUES.
[2024-09-30 06:42] LABS: Albumin, Blood 1.7 g/dL (3.4-5.0); Albumin/Globulin Ratio 0.3 (0.8-1.8); Bilirubin, Total 0.2 mg/dL (0.1-1.0); Bun/Creatinine Ratio 46.7 (12.0-20.0); Calcium, Blood 8.7 mg/dL (8.5-10.1); Creatinine, Blood 0.86 mg/dL (0.40-1.00); Magnesium, Blood 2.5 mg/dL (1.6-2.4); Potassium, Blood 4.4 mmol/L (3.5-5.5); Total Protein, Blood 6.7 g/dL (6.4-8.2)
[2024-09-30 06:49] LABS: BAND PERCENT MAN 8 % (0-8); BASOPHILS PERCENT MAN 0 % (0-2); EOSINOPHILS PERCENT MAN 0 % (0-6); LYMPHOCYTES PERCENT MAN 2 % (21-46); METAMYELOCYTE PERCENT MAN 1 % (0-0); MONOCYTES PERCENT MAN 1 % (4-13); SEG NEUTROPHILS PERCENT MAN 88 % (41-73); TOTAL CELLS COUNTED 100
[2024-09-30 06:52] LABS: BASOPHILS ABSOLUTE AUTO 0.14 K/mm3 (0.00-0.23); BASOPHILS PERCENT AUTO 1 % (0-2); Hematocrit 25.3 % (33.0-51.0); Hemoglobin 7.9 g/dL (11.5-16.0); LYMPHOCYTES ABSOLUTE AUTO 0.55 K/mm3 (0.84-5.20); LYMPHOCYTES ABSOLUTE MAN 0.52 K/mm3 (0.84-5.20); LYMPHOCYTES PERCENT AUTO 2 % (21-46); METAMYELOCYTE ABSOLUTE MAN 0.26 K/mm3 (0.00-0.00); MONOCYTES ABSOLUTE AUTO 0.37 K/mm3 (0.16-1.47); MONOCYTES ABSOLUTE MAN 0.26 K/mm3 (0.16-1.47); MONOCYTES PERCENT AUTO 1 % (4-13); Mean Corpuscular HGB 24.7 pg (26.0-34.0); Mean Corpuscular HGB Conc 31.2 g/dL (31.5-36.5); Mean Corpuscular Volume 79 fL (80-100); Mean Platelet Volume 9.9 fL (9.1-12.4); NEUTROPHILS ABSOLUTE MAN 25.35 K/mm3 (1.96-9.15); Platelet Count 324 K/mm3 (150-400); RDW Coefficient Variation 16.8 % (11.7-14.2); White Blood Cell Count 26.41 K/mm3 (4.00-11.30)
[2024-09-30 06:53] LABS: EOSINOPHILS PERCENT AUTO 0 % (0-6); IMMATURE GRAN ABSOLUTE AUTO 0.29 K/mm3 (0.00-0.10); IMMATURE GRAN PERCENT AUTO 1 % (0-1); NEUTROPHILS ABSOLUTE AUTO 25.06 K/mm3 (1.96-9.15); NEUTROPHILS PERCENT AUTO 95 % (41-73)
--- NOTE | 2024-09-30 07:20 | NUR ---
ASSUMED CARE OF PATIENT AT APPROXIMATELY 0700. REPORT RECEIVED FROM TAMIE PENALOZA. PT RESTING IN BED, INTERACTING APPROPRIATELY WITH STAFF DURING BEDSIDE REPORT. DENIES PAIN. CONTINOUS CARDIAC MONITORING SHOWS STACH, BP STABLE WITH MAP > 65. LEVOPHED ON SB. ON RA, DENIES SOB. GILL DRAINING TO GRAVITY. VSS AND NO AUCTE NEEDS IDENTIFIED AT THIS TIME. SEE SHIFT ASSESSMENT FOR FURTHER DETAILS.
[2024-09-30] MEDS ORDERED: Insulin Human Lispro 100 Units/ML 3ML Syringe SC ONE (07:45)
[2024-09-30] MEDS ORDERED: Lactated Ringer's 1,000 ML IV SCH ×2 (08:25→11:25)
[2024-09-30] MEDS ORDERED: Insulin Glargine-Yfgn 100 Unit/mL 3 ML SYR SC ONE (08:25)
[2024-09-30] MEDS ORDERED: Enoxaparin 40 MG/0.4 ML SYR SC SCH (09:00)
[2024-09-30] MEDS ORDERED: Vancomycin HCL 750 MG in NS 250 ML IV SCH (10:00)
--- NOTE | 2024-09-30 11:20 | NUR ---
MD CALL PT TRANSFERED FROM ICU TO MEDICAL UNIT. DR COFFEY CALLED PT ORIENTATED TO SELF ONLY, O2 SAT 87-89% ON ROOM AIR, PLACED ON 2L NC, FEVER 102.4 DESPITE RECEIVING TYLENOL AT 0900 AND ICE PACKS TO SKIN. WHITE RESIDUE TO TONGUE. HEART RATE ELEVATED AT 115. DR COFFEY PLACING ORDERS FOR CXR, IVF BOLUS, OXYGEN, NYSTATIN S&S, ACCUCHECK TO AC/HS.
[2024-09-30] MEDS ORDERED: Insulin Human Lispro 100 Units/ML 3ML Syringe SC SCH ×2 (12:00)
[2024-09-30] MEDS ORDERED: Piperacillin/Tazobactam Sod 4.5 GM in NS 100 ML IV SCH (12:14)
[2024-09-30] MEDS ORDERED: NS 250 ML IV PRN (12:20)
[2024-09-30] MEDS ORDERED: Azithromycin 500 MG in NS 250 ML IV SCH (12:30)
--- NOTE | 2024-09-30 17:38 | NUR ---
SHIFT SUMMARY MS WILLIS WAS TRANSFERED FROM ICU TO MEDICAL UNIT AT ~1045AM. FEVER, LOW PULSE OX, INCREASED HEART RATE AND CONFUSION ON ARRIVAL TO MEDICAL UNIT. TWO PAINFUL PIVS REMOVED, NEW PIV PLACED AND BOLUS LR 1L INFUSED. ICE PACKS TO HER NECK AND HEAD, PLACED ON 2L O2 NC. CONTINUOUS PULSE OX REQUESTED FROM RESPIRATORY THERAPIST. FEVER AND HEART RATE HAVE DECREASED. GILL IN PLACE WITH CLOUDY UOP. NON BLANCHABLE REDNESS TO COCCYX, MEPILEX APPLIED AND PT TURNED AND PADDED WITH PILLOWS. MS WILLIS HAS BEEN RESTING A LOT THIS AFTERNOON. POOR APPETITE AT LUNCH TIME. FAMILY VISITED. BED LOW, CALL LIGHT IN REACH, BED ALARM ON.
[2024-09-30] MEDS ORDERED: D5W-LR 1,000 ML IV SCH (18:25)
--- NOTE | 2024-09-30 18:27 | NUR ---
CHANGE IN STATUS. PT SITTING UP IN BED LOOKING AROUND, LOOKING AT MEAL TRAY, NOT VERBALIZING ANYTHING. SHE IS HAVING A HARD TIME FOLLOWING ANY INSTRUCTIONS. WHEN ASKED TO SQUEEZE MY HAND SHE TWITCHES HER HAND WITH AN EXTREEMLY WEAK MOVEMENT, EQUAL ON BOTH SIDES. WHEN ASKED TO WIGGLE HER TOES SHE IS NOT FOLLWING INSTRUCTIONS. PUPILS EQUALLY REACTIVE TO LIGHT. SON CAME TO BEDSIDE AND PT DID NOT TALK TO SON. BLOOD GLUCOSE IN THE 140S. VITAL SIGNS MONITORED, HR ELEVATED. DR COFFEY CALLED AND NOTIFIED OF CHANGE IN CONDITION. TELEPHONE ORDER TO CHANGE IVF TO D5LR AT 100/HR, CHANGE SLIDING SCALE TO MEDIUM SLIDING SCALE WITH A GOAL TO GET BLOOD GLUCOSE BACK TO ~250 AND TO TRANSFER PT TO PCU.
--- NOTE | 2024-09-30 18:58 | NUR ---
TRANSFERED TO PCU VIA BED. FAMILY ACCOMPANYING TRANSFER. REPORT TO RANJANA WILLETT.
[2024-09-30] MEDS ORDERED: CefTRIAXone Sodium 2,000 MG in NS 100 ML IV SCH (19:00)
--- NOTE | 2024-09-30 19:21 | NUR ---
Transfer note Pt to room via bed, received bedside shift report, pt alert, answering questions. Vss. Placed tele sinus tach, bp stable. Spo2 >90% on 3l breathing labored, increase resp rate noted. Pt feels warm temporal thermometer shows afebrile. Other vss. Report given to oncoming rn.
--- NOTE | 2024-09-30 20:00 | NUR ---
START OF SHIFT THIS RN ASSUMED CARE AT APPROXIMATE 1900. PT IN BED RESTING W/O COMPLAINTS. PT AOX1 TO SELF. PT GIVES ONE WORD ANSWERS. D5LR GTT AT 100 WITH BG IN THE MID 100'S. WILL CONTINUE PLAN OF CARE.
--- NOTE | 2024-09-30 22:18 | NUR ---
ST ELEVATION ST ELEVATION OBSERVED ON TELE MONITOR. THIS RN OBTAINED AN EKG THAT SHOWED POSSIBLE STEMI. MD NOTIFIED. TRENDING TROPONINGS. PT DENIES CHEST PAIN, NUMBESS OR TINGLING.
[2024-10-01] VITALS (7 sets, daily range): BP systolic 106–112; BP diastolic 56–69
[2024-10-01] MEDS ORDERED: D5W-LR 1,000 ML IV SCH (05:15)
--- NOTE | 2024-10-01 05:26 | NUR ---
SHIFT SUMMARY PT AOX1, ABLE TO SAY NAME AND DATE OF . PT OCCASSIONAL RESPONDS WITH FEW WORDS TO VARIOUS QUESTIONS. BLOOD SUGARS HAVE BEEN 110S-150'S. MD ABRAHAM NOTIFIED, MD STATED TO KEEP BLOOD SUGARS BELOW 200. AWARE THAT DAY SHIFT MD HAD A BG GOAL OF ABOVE 200. D5LR STILL RUNNING AT 100MLS/HR. PT STARTED THE NIGHT WITH A TEMP OF 102, THIS DECREASED WITH FANS TO 98F. PT ON 4L GILL APPEARS TO CONTINUE TO BE CLOUDY WITH SEDIMENT. NO OTHER ACUTE EVENTS OVER NIGHT.
[2024-10-01 06:16] LABS: BASOPHILS ABSOLUTE AUTO 0.05 K/mm3 (0.00-0.23); BASOPHILS PERCENT AUTO 0 % (0-2); Hematocrit 25.1 % (33.0-51.0); Hemoglobin 7.6 g/dL (11.5-16.0); LYMPHOCYTES ABSOLUTE AUTO 0.58 K/mm3 (0.84-5.20); LYMPHOCYTES PERCENT AUTO 4 % (21-46); MONOCYTES ABSOLUTE AUTO 0.41 K/mm3 (0.16-1.47); MONOCYTES PERCENT AUTO 3 % (4-13); Mean Corpuscular HGB 24.5 pg (26.0-34.0); Mean Corpuscular HGB Conc 30.3 g/dL (31.5-36.5); Mean Corpuscular Volume 81 fL (80-100); NRBC ABSOLUTE 0.02 K/mm3 (0.00-0.02); NRBC Auto 0.1 /100 WBC (0.0-0.2); Platelet Count 268 K/mm3 (150-400); RDW Coefficient Variation 17.1 % (11.7-14.2); RDW Standard Deviation 50.4 fL (35.1-46.3); White Blood Cell Count 15.87 K/mm3 (4.00-11.30)
[2024-10-01 06:26] LABS: EOSINOPHILS ABSOLUTE AUTO 0.03 K/mm3 (0.00-0.68); EOSINOPHILS PERCENT AUTO 0 % (0-6); IMMATURE GRAN ABSOLUTE AUTO 0.08 K/mm3 (0.00-0.10); IMMATURE GRAN PERCENT AUTO 1 % (0-1); NEUTROPHILS ABSOLUTE AUTO 14.72 K/mm3 (1.96-9.15); NEUTROPHILS PERCENT AUTO 93 % (41-73)
[2024-10-01 06:48] LABS: Bun/Creatinine Ratio 30.7 (12.0-20.0); Calcium, Blood 8.2 mg/dL (8.5-10.1); Creatinine, Blood 0.85 mg/dL (0.40-1.00); Potassium, Blood 3.5 mmol/L (3.5-5.5)
[2024-10-01] MEDS ORDERED: Insulin Human Lispro 100 Units/ML 3ML Syringe SC SCH ×3 (16:30)
--- NOTE | 2024-10-01 16:32 | NUR ---
SHIFT SUMMARY THE PT IS A&OX4, CALLING APPROPRIATELY AND MAKING HER NEEDS KNOWN. SHE IS A 2P ASSIST W/ FWW AND GAITBELT. THE PT HAS BEEN UP IN THE CHAIR FOR ABOUT HALF OF THE SHIFT. SHE HAS A LARGE LOOSE BOWEL MOVEMENT AFTER DRINKING SOME PRUNE JUICE WELL. THE PT HAS BEEN ON RA THIS ENTIRE SHIFT AND HAS DENIES ANY SOB. ON TELE SHE IS RUNNING SR AND HER BLOOD PRESSURE HAS BEEN STABLE. SHE WAS CHANGED TO AC ON BLOOD SUGAR CHECKS AND HER D5% W/LR WAS D/C D TODAY. NO ACUTE EVENTS. SEE NOTES FOR ANY UPDATES.
[2024-10-02 03:58] VITALS: BP 115/69
[2024-10-02 07:38] VITALS: BP 112/66
[2024-10-02 11:20] VITALS: BP 109/64
[2024-10-02] MEDS ORDERED: Ciprofloxacin 400MG/D5 200ML 200 ML IV SCH (13:00)
[2024-10-02 13:04] LABS: Hematocrit 28.3 % (33.0-51.0); Hemoglobin 8.6 g/dL (11.5-16.0)
[2024-10-02] MEDS ORDERED: CeFAZolin Sodium 2,000 MG in NS 100 ML IV SCH (15:00)
[2024-10-02 15:31] VITALS: BP 104/64
--- NOTE | 2024-10-02 16:27 | NUR ---
SHIFT SUMMARY PT IS A&OX4, MAKES HER NEEDS KNOWN, AND HAS BEEN A 1-2P ASSIST W/ FWW, GB, AND THE PT'S PROSTHETIC. THE PT'S RIGHT STUMP WAS SWOLLEN TODAY AND HAD TROUBLE GETTING HER PROSTHETIC ON. SHE WANTED IT WRAPPED AND IT WAS ELEVATED ON MULTIPLE PILLOWS. THE PT IS ON RA AND SP02 >93%, SHE DENIES SOB. ON TELE SHE HAS BEEN SR. BP STABLE. THE PT WAS C/O SOME ACHES IN HER KNEES AND BACK ANS WAS MEDICATED WITH TYLENOL PER EMAR. SHE CONTINUES TO HAS A GLIL DRAINING TO GRAVITY. THE PT'S OUTPUT IS ORANGE W/ A RED TINT. DR. COFFEY AWARE. THE PT IS FEELING AND DOING BETTER AND IS MEDICAL STATUS W/O TELE. TELE D/C'D HIS AFTERNOON. NO ACUTE EVENTS . SEE NOTES FOR UPDATES
[2024-10-02 19:37] VITALS: BP 124/63
[2024-10-02] MEDS ORDERED: Lactobacil 2-S.Thermo-Bifido 1 1 Cap PO SCH (21:00)
[2024-10-03] VITALS (7 sets, daily range): BP systolic 103–125; BP diastolic 59–73
--- NOTE | 2024-10-03 06:45 | NUR ---
PT OXYGEN DEMAND INCREASED TOWARD THE END OF SHIFT WITH PT GOING FROM ROOM AIR TO 2L NC D/T DECREASED O2 SATS UNEFFECTED BY REPOSITIONING OR COUGH/DEEP BREATHE. PT IS AT REST WITH NO C/O DYSPNEA/CHEST PAIN. PT REMAINS AOX4. PT O2 SAT RESPONDED WELL TO 2LNC. PT VITAL SIGNS OTHERWISE STABLE THROUGHOUT SHIFT. PT TOLERATING IV ABX WELL AT THIS TIME. GILL CONTINUES TO HAVE GOOD OUTPUT, URINE IS DARK YELLOW IN COLOR AND CLEAR. RT BKA STUMP SKIN INTACT AND SWELLING DECREASED. PT HAS BEEN IN BED THROUGHOUT THE NIGHT WITH MINIMAL NEEDS BUT IS ABLE TO MAKE NEEDS KNOWN AND USES CALL LIGHT APPROPRIATELY. PT CALM AND COOPERATIVE.
[2024-10-03] MEDS ORDERED: CYMBALTA30 M2 PO (11:26)
[2024-10-03] MEDS ORDERED: METO100ER PO (11:30)
--- NOTE | 2024-10-03 12:33 | NUR ---
NOON ASSESSMENT NO CHANGES TO REPORT SINCE AM ASSESSMENT.
--- NOTE | 2024-10-03 16:59 | NUR ---
SHIFT SUMMARY PT HAS BEEN A 1-2 ASSIST FOR TRANSFERS TODAY. PT SAT UP TO THE CHAIR FOR MUCH OF THE DAY. SHE CALLS APPROPRIATELY. PT IS TOLERATING MEALS. BLOOD GLUCOSE HAS BEEN ELEVATED T/O THE SHIFT, BUT IS SOMEWHAT IMPROVED THIS EVENING. PT IS NOW ON 0.5L O2 VIA NC.
--- NOTE | 2024-10-03 23:35 | NUR ---
REPORT GIVEN TO TAMIE SAMUEL FOR TRANSFER TO ROOM 311.
--- NOTE | 2024-10-04 02:55 | NUR ---
PT TRANSFERRED IN THE HOSPITAL BED (DID NOT REQUIRE TRANSFERRING FROM PCU BED/SWITCHED BEDS) FROM [facility] TO MEDICAL FLOOR RM#[phone] @[phone]. PRIOR TO TRANSFERM THE BREAK NURSE LIZZIE RECEIVED A REPORT OVER THE PHONE FROM TAMIE BURCH AT [facility]. PT BROUGHT ALL HER BELONINGS WITH HER, INCLUDING HER RIGHT BKA PROSTETIC LEG. PT IS A&O X4, ABLE TO MAKE HER NEEDS KNOWN AND COOPERATIVE WITH CARE. PT WEARING ATTENDS, REPORTS URGENCY AND INCONTINENCE OF URINE. PT IS ON 1L OF O2, SAT'S >95%. IV IS ON PT'S RIGHT FOREARM. PT DENIES PAIN, DISCOMFORT AND SOB. PT REPORTS TRANSFERS WITH 2-PERSON ASSIST TO BEDSIDE COMMODE WITH GAITBELT AND FWW. LAST BM 10/02/24, PER PCU NURSE REPORT. PT REPORTS SWELLING TO THE RIGHT BKA STUMP, AND THAT THE PROSTETIC IS NOT FITTING, THEREFORE UNABLE TO GET UP TO COMMODE EACH TIME TO VOID. NO ACUTE EVENTS DURING THIS SHIFT. BED AT THE LOWEST POSITION, CALL LIGHT WITHIN REACH. BED ALARM FOR SAFETY.
[2024-10-04 05:05] LABS: Hematocrit 25.7 % (33.0-51.0); Hemoglobin 8.1 g/dL (11.5-16.0); Mean Corpuscular HGB 24.8 pg (26.0-34.0); Mean Corpuscular HGB Conc 31.5 g/dL (31.5-36.5); Mean Corpuscular Volume 79 fL (80-100); Mean Platelet Volume 11.3 fL (9.1-12.4); Platelet Count 325 K/mm3 (150-400); RDW Standard Deviation 48.6 fL (35.1-46.3); Red Blood Cell Count 3.27 M/mm3 (3.80-5.20); White Blood Cell Count 9.97 K/mm3 (4.00-11.30)
[2024-10-04 05:27] LABS: BASOPHILS ABSOLUTE MAN 0.09 K/mm3 (0.00-0.23); BASOPHILS PERCENT MAN 1 % (0-2); EOSINOPHILS ABSOLUTE MAN 0.39 K/mm3 (0.00-0.68); EOSINOPHILS PERCENT MAN 4 % (0-6); LYMPHOCYTES % ATYPICAL MANUAL 3 % (0-0); LYMPHOCYTES ABSOLUTE MAN 1.69 K/mm3 (0.84-5.20); LYMPHOCYTES PERCENT MAN 14 % (21-46); MONOCYTES ABSOLUTE MAN 0.39 K/mm3 (0.16-1.47); MONOCYTES PERCENT MAN 4 % (4-13); NEUTROPHILS ABSOLUTE MAN 7.37 K/mm3 (1.96-9.15); SEG NEUTROPHILS PERCENT MAN 74 % (41-73); TOTAL CELLS COUNTED 100
[2024-10-04 05:44] LABS: Albumin, Blood 1.2 g/dL (3.4-5.0); Albumin/Globulin Ratio 0.2 (0.8-1.8); Bilirubin, Total 0.1 mg/dL (0.1-1.0); Bun/Creatinine Ratio 17.5 (12.0-20.0); Creatinine, Blood 0.69 mg/dL (0.40-1.00); Globulin, Blood 5.2 g/dL (2.2-4.0); Potassium, Blood 2.9 mmol/L (3.5-5.5); Total Protein, Blood 6.4 g/dL (6.4-8.2)
[2024-10-04 07:47] VITALS: BP 133/75
[2024-10-04] MEDS ORDERED: Potassium Chl 20MEQ/Water100ML 100 ML IV STA (14:59)
[2024-10-04] MEDS ORDERED: Potassium Chloride 20 MEQ TabCR PO ONE (15:00)
[2024-10-04] MEDS ORDERED: NS 500 ML IV SCH (15:40)
[2024-10-04 15:52] VITALS: BP 131/76
[2024-10-04] MEDS ORDERED: Potassium Chloride 10 Meq Tablet SA PO ONE (16:50)
--- NOTE | 2024-10-04 18:14 | NUR ---
SHIFT SUMMARY PT AO4, COOPERATIVE, ABLE TO MAKE NEEDS KNOWN. SPENT DURATION OF SHIFT IN BED EXCEPT WITH EMPLOYEE COMMUNICATIONS INTERN. IV WAS LEAKING, DC'D IV, MULTIPLE NURSES TRIED TO ESTABLISH NEW IV, FAILED. INFORMED MD MINNA SWITCHED MEDS TO PO. PT TO BE DC'D TOMORROW. BED IN LOWEST POSITION, CALL LIGHT WITHIN REACH.
[2024-10-04] MEDS ORDERED: Ciprofloxacin 500 MG Tab PO SCH (19:00)
[2024-10-04] MEDS ORDERED: NS 250 ML IV PRN (19:50)
[2024-10-04 20:10] VITALS: BP 128/65
--- NOTE | 2024-10-04 21:52 | NUR ---
THIS DIE INSPECTOR RECEIVED A PHONE CALL FROM THE PT'S [id number] MAMI. PT LIVES WITH MAMI AND PT'S SON IN THE SAME HOUSEHOLD. MAMI REPORTS A CONCERN REGARDING PT'S HX OF MEDICALLY NONCOMPLIANT/CURRENT DX WELL. PER SALVADOR : IF PT D/C'S FROM THE HOSPITAL TO HOME TOMORROW: PT WILL MORE THAN LIKELY BE NONCOMPLIANT WITH THE ABX REGIMEN/WON'T FINISH TAKING THE PO ABX COURSE. PER MAMI, IT WOULD BE BETTER IF PT ELIGBLE FOR ADMISSION TO SNF UNTIL ABX COURSE FINISHED. PER MAMI'S STATEMENT: "IT'S NOT LIKE WE DON'T WANT HER TO COME HOME, BUT WE ARE CONCERNED THAT SHE WON'T TAKE CARE OF HERSELF LIKE BEFORE. THAT IS WHY SHE ENDED TO THE HOSPITAL THIS TIME." KARUNA WAS AWAITING A PHONE CALL FROM OR OTHER PROVIDER REGARDING THIS ISSUE (TODAY.) SHE REPORTS DID NOT GET A PHONE CALL. WILL PASS THIS INFORMATION TO CHARGE NURSE- AND TO DAY SHIFT NURSE TOM. WILL HAVE A DISCUSSION WITH THE PT REGARDING HOME VS. SNF, WHEN PROVIDING CARE TO THE PT DURING THIS SHIFT.
[2024-10-05 01:37] VITALS: BP 117/59
[2024-10-05 05:03] LABS: BASOPHILS ABSOLUTE AUTO 0.02 K/mm3 (0.00-0.23); BASOPHILS PERCENT AUTO 0 % (0-2); EOSINOPHILS PERCENT AUTO 1 % (0-6); Hematocrit 25.8 % (33.0-51.0); Hemoglobin 7.9 g/dL (11.5-16.0); Mean Corpuscular HGB 24.2 pg (26.0-34.0); Mean Corpuscular HGB Conc 30.6 g/dL (31.5-36.5); Mean Corpuscular Volume 79 fL (80-100); Platelet Count 309 K/mm3 (150-400); RDW Coefficient Variation 16.6 % (11.7-14.2); RDW Standard Deviation 47.8 fL (35.1-46.3); Red Blood Cell Count 3.27 M/mm3 (3.80-5.20); White Blood Cell Count 9.09 K/mm3 (4.00-11.30)
[2024-10-05 05:13] LABS: IMMATURE GRAN ABSOLUTE AUTO 0.13 K/mm3 (0.00-0.10); IMMATURE GRAN PERCENT AUTO 1 % (0-1); LYMPHOCYTES ABSOLUTE AUTO 1.55 K/mm3 (0.84-5.20); LYMPHOCYTES PERCENT AUTO 17 % (21-46); MONOCYTES ABSOLUTE AUTO 0.52 K/mm3 (0.16-1.47); MONOCYTES PERCENT AUTO 6 % (4-13); NEUTROPHILS ABSOLUTE AUTO 6.77 K/mm3 (1.96-9.15); NEUTROPHILS PERCENT AUTO 75 % (41-73)
[2024-10-05 05:31] LABS: Magnesium, Blood 1.9 mg/dL (1.6-2.4)
[2024-10-05 05:32] LABS: Bun/Creatinine Ratio 15.4 (12.0-20.0); Calcium, Blood 8.4 mg/dL (8.5-10.1); Creatinine, Blood 0.72 mg/dL (0.40-1.00); Potassium, Blood 3.5 mmol/L (3.5-5.5)
--- NOTE | 2024-10-05 05:48 | NUR ---
SHIFT SUMMARY NO ACUTE EVENTS DURING THIS SHIFT. CONTINUING PT EDUCATION R/T SELF-CARE, IMPORTANCE OF MEDICATION REGIMEN, AND PROPER NUTRITION R/T DM2. PT RE-VERBALIZED UNDERSTANDING. PT DOES NOT FEEL READY TO D/C HOME OF NOW. PT STATED WOULD LIKE TO GO TO SNF IF POSSIBLE. THIS AIR CONDITIONING INSTALLER SUPERVISOR RECEIVED A PHONE CALL FROM THE [id number] MAMI (SEE PREVIOUS NOTE). MAMI REPORTED THAT PT LIVES WITH HER AND PT'S SON, AND HAVE WITNESSED PT'S NON-COMPLIANCE TO MEDICATION REGIMEN INCLUDING INSULIN. PT IS ON RA, CONTINUOUS PULSE OX SAT'S LOW 90'S. PT DENIES PAIN, SOB, AND DISCOMFORT. HS B. HS SNACK GIVEN WITH PT EDUCATION R/T CONSISTENT CARB DIET. PT RECEPTIVE, ASKING QUESTIONS. BED BATH AND HAIR WASHED BY DIMA FUENTES THIS AM @0500. PT STATES FEELS BETTER. BED AT THE LOWEST POSITION, CALL LIGHT WITHIN REACH. PT IS ABLE TO MAKE HER NEEDS KNOWN AND IS COOPERATIVE WITH CARE.
[2024-10-05 07:44] VITALS: BP 133/76
[2024-10-05] MEDS ORDERED: Insulin Glargine-Yfgn 100 Unit/mL 3 ML SYR SC SCH (09:00)
[2024-10-05] MEDS ORDERED: CIPR500 PO (11:08)
[2024-10-05] MEDS ORDERED: VISBIOME 112.51 EACH PO (11:08)
[2024-10-05] MEDS ORDERED: ONDA4ODT MM (11:09)
--- NOTE | 2024-10-05 11:56 | NUR ---
DISCHARGE NOTE- PT SON MARJAN NOTIFIED OF THE PT DISCHARGE DATE AND TIME. PT IS UP AND GETTING DRESSED WITH THE CASHIER RECEPTIONIST AT THIS TIME. VERBAL AND WRITTEN DISCHARGE INSTRUCTIONS WERE PROVIDED TO THE PT AND SHE ACKNOWLEDGED UNDERSTANDING OF THEM. SHE ACKNOWLEDGED UNDERSTANDING THAT WHILE TAKING CIPRO SHE IS NOT SUPPOSED TO TAKE THE DULOXITINE OR SIMVASTATIN, THOSE MEDS ARE ON HOLD UNTIL 2 DAYS AFTER THE CIPRO IS COMPLETED. PT IS AWARE AND IT IS HIGHLIGHTED ON THE WRITTEN INSTRUCTIONS WELL. PT WILL BE ESCORTED OUT VIA WC BY THE CASHIER RECEPTIONIST WHEN HER SON ARRIVES. NO CURRENT S&S OF DISTRESS NOTED ON ROOM AIR.
== END 2024-10-05 12:31 | disposition home health service (06) | DRG 871 ==
LOC: ER 16:28 → ICUE 20:44 → ERHOLD 20:44 → ICUE 22:58 → MEDS 09-30 11:16 → PCU 09-30 18:51 → MEDS 10-03 23:59 → ENPENDDIS 10-05 11:33 → MEDS 10-05 12:31
PROVIDERS: Internal Medicine; Nurse Practitioner Acute Care; Student in an Organized Health Care Education/Training Program; ADMIT Internal Medicine
DX: A41.51 Sepsis due to Escherichia coli [E. coli] (principal); G92.8 Other toxic encephalopathy; J18.9 Pneumonia, unspecified organism; I21.A1 Myocardial infarction type 2; E87.1 Hypo-osmolality and hyponatremia; N30.00 Acute cystitis without hematuria; E11.65 Type 2 diabetes mellitus with hyperglycemia; I10 Essential (primary) hypertension; M54.9 Dorsalgia, unspecified; G89.29 Other chronic pain; R65.20 Severe sepsis without septic shock; M06.9 Rheumatoid arthritis, unspecified; Z91.148 Patient's other noncompliance with medication regimen for other reason; B95.61 Methicillin susceptible Staphylococcus aureus infection as the cause of diseases classified elsewhere; Z89.511 Acquired absence of right leg below knee; Z85.3 Personal history of malignant neoplasm of breast; Z91.040 Latex allergy status; Z88.2 Allergy status to sulfonamides; Z88.8 Allergy status to other drugs, medicaments and biological substances; Z90.49 Acquired absence of other specified parts of digestive tract; Z90.710 Acquired absence of both cervix and uterus; Z90.79 Acquired absence of other genital organ(s); Z89.411 Acquired absence of right great toe; Z90.13 Acquired absence of bilateral breasts and nipples; Z98.51 Tubal ligation status; Z98.42 Cataract extraction status, left eye; Z98.41 Cataract extraction status, right eye; Z98.890 Other specified postprocedural states; Z99.81 Dependence on supplemental oxygen
CPT/HCPCS: 0202U; 0241U; 36415; 51701; 51702; 70450; 71045; 80048; 80053; 81001; 82010; 82550; 82803; 82947; 83605; 83735; 83880; 84100; 84484; 85014; 85018; 85025; 87040; 87077; 87086; 87186; 93005; 93010; 94760; 94762; 96361-59; 96365-59; 96368; 96375-59; 97110; 97116; 97161; 97530; 99285-25; A9270; J0456; J0690; J0696; J0744; J1650; J1815; J1885; J2543; J3370; J3475; J7040; J7050; J7060; J7120; J7121; P9047

== ENCOUNTER 2024-11-16 12:47 | Inpatient (IN) | payer OTHER ==
[~2024-11-16] VITALS: Ht 167.6 cm; Wt 56.7 kg
[~2024-11-16 12:47] MED LIST changes: +CIPR500 PO; +CYMBALTA30 M2 PO; +METO100ER PO; +VISBIOME 112.51 EACH PO
[2024-11-16 14:36] LABS: BASOPHILS ABSOLUTE AUTO 0.06 K/mm3 (0.00-0.23); BASOPHILS PERCENT AUTO 0 % (0-2); EOSINOPHILS PERCENT AUTO 0 % (0-6); Hematocrit 35.7 % (33.0-51.0); Hemoglobin 11.7 g/dL (11.5-16.0); IMMATURE GRAN ABSOLUTE AUTO 0.09 K/mm3 (0.00-0.10); IMMATURE GRAN PERCENT AUTO 1 % (0-1); LYMPHOCYTES ABSOLUTE AUTO 1.49 K/mm3 (0.84-5.20); LYMPHOCYTES PERCENT AUTO 8 % (21-46); MONOCYTES ABSOLUTE AUTO 0.61 K/mm3 (0.16-1.47); MONOCYTES PERCENT AUTO 3 % (4-13); Mean Corpuscular HGB 26.8 pg (26.0-34.0); Mean Corpuscular HGB Conc 32.8 g/dL (31.5-36.5); Mean Corpuscular Volume 82 fL (80-100); Mean Platelet Volume 10.1 fL (9.1-12.4); NEUTROPHILS ABSOLUTE AUTO 16.35 K/mm3 (1.96-9.15); NEUTROPHILS PERCENT AUTO 88 % (41-73); Platelet Count 326 K/mm3 (150-400); RDW Coefficient Variation 18.7 % (11.7-14.2); Red Blood Cell Count 4.37 M/mm3 (3.80-5.20)
[2024-11-16 14:56] LABS: Albumin, Blood 3.5 g/dL (3.4-5.0); Albumin/Globulin Ratio 0.5 (0.8-1.8); Bilirubin, Total 0.5 mg/dL (0.1-1.0); Bun/Creatinine Ratio 52.6 (12.0-20.0); Calcium, Blood 10.2 mg/dL (8.5-10.1); Creatinine, Blood 0.78 mg/dL (0.40-1.00); Globulin, Blood 7.6 g/dL (2.2-4.0); Potassium, Blood 4.4 mmol/L (3.5-5.5); Total Protein, Blood 11.1 g/dL (6.4-8.2)
[2024-11-16] MEDS ORDERED: NS 1,000 ML IV SCH (17:10)
[2024-11-16] MEDS ORDERED: Ondansetron HCl 2 MG / ML 2ML Vial IV ONE (17:25)
[2024-11-16 17:42] LABS: Base Excess Venous 1.5 mmol/L; Bicarbonate Venous 25.8 mmol/L (24.0-30.0); PCO2 Venous 37.1 mmHg (38-42); pH Blood Venous 7.45 (7.34-7.37)
[2024-11-16 18:58] LABS: Source, Urine Clean Catch
[2024-11-16 19:01] LABS: Appearance, Urine Hazy (Clear); Bilirubin, Urine Neg (Neg); Blood, Urine 5+ (Neg); Color, Urine Yellow (P-Yellow); Glucose Qualitative, Urine 4+ (Neg); Ketones, Urine Neg (Neg); Leukocyte Esterase, Urine 3+ (Neg); Nitrite, Urine Pos (Neg); Protein, Urine 3+ (Neg); Urobilinogen, Urine NORM (Normal)
[2024-11-16 19:12] LABS: White Blood Cells, Urine TNTC /hpf (0-5)
[2024-11-16 19:14] LABS: Bacteria Many /hpf; Squamous Epithelial Cells Few /hpf (Few)
[2024-11-16 19:15] LABS: Renal Epithelial Rare /hpf (0-Rare)
[2024-11-16 19:52] LABS: Influenza A, PCR NEGATIVE (NEGATIVE); Influenza B, PCR NEGATIVE (NEGATIVE); Resp Syncytial Virus, PCR NEGATIVE (NEGATIVE); SARS-Cov-2 (COVID-19) PCR, MMC NEGATIVE (NEGATIVE)
[2024-11-16] MEDS ORDERED: CefTRIAXone Sodium 1,000 MG in NS 100 ML IV ONE (20:00)
[2024-11-16] MEDS ORDERED: Acetaminophen 325 MG TABLET PO PRN (20:40)
[2024-11-16] MEDS ORDERED: FLU VACC TS2024-25(6MOS UP)/PF 45 MCG/0.5 ML SYRINGE IM SCH (20:40)
[2024-11-16] MEDS ORDERED: Ondansetron HCl 2 MG / ML 2ML Vial IV PRN (20:40)
[2024-11-16] MEDS ORDERED: Lactated Ringer's 1,000 ML IV SCH (21:00)
[2024-11-16] MEDS ORDERED: Lactobacil 2-S.Thermo-Bifido 1 1 Cap PO SCH (21:00)
[2024-11-16 23:00] VITALS: BP 135/76
[2024-11-17] MEDS ORDERED: Insulin Human Lispro 100 Units/ML 3ML Syringe SC SCH ×2 (00:10→07:30)
[2024-11-17 03:56] VITALS: BP 128/70
[2024-11-17] MEDS ORDERED: Metoclopramide HCl 5MG / ML 2ML Vial IV PRN (04:05)
--- NOTE | 2024-11-17 04:55 | NUR ---
NEW ER ADMIT THIS SHIFT, A&OX4, VSS, CONTINUES TO HAVE NAUSEA (MEDICATED X2), DENIES PAIN, CONT/INCON TO BSC STAND/PIVOT W/SBA, BEDRESTING AT THIS TIME W/CALL LIGHT IN REACH, WILL CONT TO MONITOR UNTIL REPORT GIVEN TO ONCOMING NURSE.
[2024-11-17 05:07] LABS: BASOPHILS ABSOLUTE AUTO 0.06 K/mm3 (0.00-0.23); BASOPHILS PERCENT AUTO 0 % (0-2); EOSINOPHILS ABSOLUTE AUTO 0.06 K/mm3 (0.00-0.68); EOSINOPHILS PERCENT AUTO 0 % (0-6); Hematocrit 31.5 % (33.0-51.0); Hemoglobin 10.1 g/dL (11.5-16.0); IMMATURE GRAN ABSOLUTE AUTO 0.04 K/mm3 (0.00-0.10); IMMATURE GRAN PERCENT AUTO 0 % (0-1); LYMPHOCYTES ABSOLUTE AUTO 3.38 K/mm3 (0.84-5.20); LYMPHOCYTES PERCENT AUTO 24 % (21-46); MONOCYTES ABSOLUTE AUTO 1.12 K/mm3 (0.16-1.47); MONOCYTES PERCENT AUTO 8 % (4-13); Mean Corpuscular HGB 26.8 pg (26.0-34.0); Mean Corpuscular HGB Conc 32.1 g/dL (31.5-36.5); Mean Corpuscular Volume 84 fL (80-100); Mean Platelet Volume 10.3 fL (9.1-12.4); NEUTROPHILS ABSOLUTE AUTO 9.62 K/mm3 (1.96-9.15); NEUTROPHILS PERCENT AUTO 67 % (41-73); Platelet Count 278 K/mm3 (150-400); RDW Standard Deviation 58.6 fL (35.1-46.3); Red Blood Cell Count 3.77 M/mm3 (3.80-5.20); White Blood Cell Count 14.28 K/mm3 (4.00-11.30)
[2024-11-17 05:41] LABS: Albumin/Globulin Ratio 0.5 (0.8-1.8); Bilirubin, Total 0.4 mg/dL (0.1-1.0); Bun/Creatinine Ratio 52.8 (12.0-20.0); Calcium, Blood 9.5 mg/dL (8.5-10.1); Creatinine, Blood 0.74 mg/dL (0.40-1.00); Globulin, Blood 6.6 g/dL (2.2-4.0); Magnesium, Blood 1.9 mg/dL (1.6-2.4); Potassium, Blood 3.9 mmol/L (3.5-5.5); Total Protein, Blood 9.6 g/dL (6.4-8.2)
[2024-11-17 07:25] VITALS: BP 130/70
[2024-11-17] MEDS ORDERED: Polyethylene Glycol 3350 17 gm PO PRN (07:55)
[2024-11-17] MEDS ORDERED: Insulin Glargine-Yfgn 100 Unit/mL 3 ML SYR SC SCH (09:00)
[2024-11-17] MEDS ORDERED: Lisinopril 5 MG Tab PO SCH (09:00)
[2024-11-17] MEDS ORDERED: Docusate Sodium 100 MG Cap PO SCH (09:00)
[2024-11-17] MEDS ORDERED: Metoprolol Succinate 50 MG TABCR PO SCH (09:00)
[2024-11-17] MEDS ORDERED: Pravastatin Sodium 20 MG Tab PO SCH (09:00)
[2024-11-17] MEDS ORDERED: Clopidogrel Bisulfate 75 MG Tab PO SCH (09:00)
[2024-11-17] MEDS ORDERED: Aspirin 81 MG TabEC PO SCH (09:00)
[2024-11-17] MEDS ORDERED: DULoxetine HCL 30 MG Cap DR PO SCH (09:00)
[2024-11-17] MEDS ORDERED: Enoxaparin 40 MG/0.4 ML SYR SC SCH (09:00)
[2024-11-17] MEDS ORDERED: Magnesium Oxide 400 MG Tab PO SCH (09:00)
[2024-11-17] MEDS ORDERED: RALOXIFENE HCL 60 MG PO SCH (09:00)
[2024-11-17] MEDS ORDERED: Folic Acid 1 MG TAB PO SCH (09:00)
[2024-11-17] MEDS ORDERED: Gabapentin 100 MG Cap PO SCH (09:00)
[2024-11-17] MEDS ORDERED: NS 250 ML IV PRN (12:40)
[2024-11-17] MEDS ORDERED: Cefepime HCl 2,000 MG in NS 100 ML IV SCH (13:00)
[2024-11-17 15:43] VITALS: BP 114/68
--- NOTE | 2024-11-17 16:50 | NUR ---
SHIFT SUMMARY: PATIENT IS ALERT AND ORIENTEDX4,1 PERSON TO SBA TO THE BEDSIDE COMMODE. PATIENT UTLIZING A PUREWICK DUE TO REQUEST AND STATING THAT SHE IS INCONTINENT. PATIENT'S BLOOD SUGARS HAVE IMPROVED THROUGHOUT THE SHIFT IN ADDITION TO HER NAUSEA/VOMITING. PATIENT WAS ABLE TO HAVE SOME PO INTAKE THIS AFTERNOON WITHOUT NAUSEA/VOMITING AND REPORTS IMPROVEMENT/RETURN OF HUNGER. PATIENT COMPLETED X2 BAGS OF IV FLUIDS AND IS ENCOURAGED TO CONTINUE ORAL INTAKE. PAITENT IS IN BED, CALL LIGHT WITHIN REACH, NO SIGNS OR SYMPTOMS OF DISTRESS, PLAN OF CARE ONGOING.
[2024-11-17 19:18] VITALS: BP 104/45
[2024-11-17] MEDS ORDERED: CefTRIAXone Sodium 1,000 MG in NS 100 ML IV SCH (21:00)
[2024-11-18 03:09] VITALS: BP 112/58
[2024-11-18 05:15] LABS: BASOPHILS ABSOLUTE AUTO 0.08 K/mm3 (0.00-0.23); BASOPHILS PERCENT AUTO 1 % (0-2); EOSINOPHILS ABSOLUTE AUTO 0.21 K/mm3 (0.00-0.68); EOSINOPHILS PERCENT AUTO 2 % (0-6); Hematocrit 29.8 % (33.0-51.0); Hemoglobin 9.3 g/dL (11.5-16.0); IMMATURE GRAN ABSOLUTE AUTO 0.03 K/mm3 (0.00-0.10); IMMATURE GRAN PERCENT AUTO 0 % (0-1); LYMPHOCYTES ABSOLUTE AUTO 2.95 K/mm3 (0.84-5.20); LYMPHOCYTES PERCENT AUTO 29 % (21-46); MONOCYTES ABSOLUTE AUTO 0.74 K/mm3 (0.16-1.47); MONOCYTES PERCENT AUTO 7 % (4-13); Mean Corpuscular HGB 26.6 pg (26.0-34.0); Mean Corpuscular HGB Conc 31.2 g/dL (31.5-36.5); Mean Corpuscular Volume 85 fL (80-100); Mean Platelet Volume 10.6 fL (9.1-12.4); NEUTROPHILS ABSOLUTE AUTO 6.21 K/mm3 (1.96-9.15); NEUTROPHILS PERCENT AUTO 61 % (41-73); Platelet Count 264 K/mm3 (150-400); RDW Coefficient Variation 18.6 % (11.7-14.2); White Blood Cell Count 10.22 K/mm3 (4.00-11.30)
[2024-11-18 05:42] LABS: Albumin, Blood 2.6 g/dL (3.4-5.0); Albumin/Globulin Ratio 0.4 (0.8-1.8); Bilirubin, Total 0.3 mg/dL (0.1-1.0); Bun/Creatinine Ratio 43.1 (12.0-20.0); Creatinine, Blood 0.67 mg/dL (0.40-1.00); Globulin, Blood 5.9 g/dL (2.2-4.0); Total Protein, Blood 8.5 g/dL (6.4-8.2)
[2024-11-18 07:15] VITALS: BP 105/79
[2024-11-18 16:02] VITALS: BP 116/59
--- NOTE | 2024-11-18 16:34 | NUR ---
SHIFT SUMMARY: NO EVENTS OR CHANGES WITH THE PATIENT THROUGHOUT THE SHIFT. SHE HAS BEEN GETTING UP TO THE BEDSIDE COMMODE; SHE HAS BEEN CONTINENT. SHE HASN'T BEEN NAUSEOUS OR VOMITING HAS BEEN TOLERATING PO INTAKE. BLOOD SUGARS HAVE BEEN MANAGEABLE. SHE IS CURRENTLY IN BED, CALL LIGHT WITHIN REACH, NO SIGNS OR SYMPTOMS OF DISTRESS, PLAN OF CARE ONGOING. PENDING REPEAT BLOOD CULTURES THAT WERE DRAWN TODAY.
[2024-11-18 19:16] VITALS: BP 112/49
[2024-11-19 05:16] LABS: BASOPHILS ABSOLUTE AUTO 0.08 K/mm3 (0.00-0.23); BASOPHILS PERCENT AUTO 1 % (0-2); EOSINOPHILS ABSOLUTE AUTO 0.16 K/mm3 (0.00-0.68); EOSINOPHILS PERCENT AUTO 2 % (0-6); Hematocrit 28.2 % (33.0-51.0); Hemoglobin 9.2 g/dL (11.5-16.0); IMMATURE GRAN ABSOLUTE AUTO 0.03 K/mm3 (0.00-0.10); IMMATURE GRAN PERCENT AUTO 0 % (0-1); LYMPHOCYTES ABSOLUTE AUTO 2.47 K/mm3 (0.84-5.20); LYMPHOCYTES PERCENT AUTO 30 % (21-46); MONOCYTES ABSOLUTE AUTO 0.61 K/mm3 (0.16-1.47); MONOCYTES PERCENT AUTO 7 % (4-13); Mean Corpuscular HGB 27.2 pg (26.0-34.0); Mean Corpuscular HGB Conc 32.6 g/dL (31.5-36.5); Mean Corpuscular Volume 83 fL (80-100); Mean Platelet Volume 10.5 fL (9.1-12.4); NEUTROPHILS ABSOLUTE AUTO 4.94 K/mm3 (1.96-9.15); NEUTROPHILS PERCENT AUTO 60 % (41-73); Platelet Count 258 K/mm3 (150-400); RDW Standard Deviation 54.4 fL (35.1-46.3); Red Blood Cell Count 3.38 M/mm3 (3.80-5.20); White Blood Cell Count 8.29 K/mm3 (4.00-11.30)
[2024-11-19 05:38] LABS: Albumin, Blood 2.4 g/dL (3.4-5.0); Albumin/Globulin Ratio 0.4 (0.8-1.8); Bilirubin, Total 0.1 mg/dL (0.1-1.0); Bun/Creatinine Ratio 48.5 (12.0-20.0); Calcium, Blood 8.7 mg/dL (8.5-10.1); Creatinine, Blood 0.58 mg/dL (0.40-1.00); Globulin, Blood 5.7 g/dL (2.2-4.0); Total Protein, Blood 8.1 g/dL (6.4-8.2)
--- NOTE | 2024-11-19 06:15 | NUR ---
A&OX4, VSS, DENIED PAIN, SLEPT T/O THIS NIGHT STATES SHE IS FEELING BETTER, CALL LIGHT IN REACH, WATCHING TV BEDRESTING AT THIS TIME.
[2024-11-19 07:14] VITALS: BP 113/64
[2024-11-19 15:11] VITALS: BP 105/63
--- NOTE | 2024-11-19 17:43 | NUR ---
SHIFT SUMMARY: NO EVENTS OR CHANGES WITH THE PATIENT THROUGHOUT THE SHIFT.SHE IS IN BED, CALL LIGHT WITHIN REACH, NO SIGNS OR SYMPTOMS OF DISTRESS, PLAN OF CARE ONGOING.
[2024-11-19 19:58] VITALS: BP 100/57
[2024-11-19] MEDS ORDERED: CefTRIAXone Sodium 2,000 MG in NS 100 ML IV SCH (21:00)
[2024-11-20 04:37] VITALS: BP 101/61
[2024-11-20 05:08] LABS: BASOPHILS ABSOLUTE AUTO 0.07 K/mm3 (0.00-0.23); BASOPHILS PERCENT AUTO 1 % (0-2); EOSINOPHILS ABSOLUTE AUTO 0.23 K/mm3 (0.00-0.68); EOSINOPHILS PERCENT AUTO 3 % (0-6); Hematocrit 30.5 % (33.0-51.0); Hemoglobin 9.9 g/dL (11.5-16.0); IMMATURE GRAN ABSOLUTE AUTO 0.04 K/mm3 (0.00-0.10); IMMATURE GRAN PERCENT AUTO 0 % (0-1); LYMPHOCYTES ABSOLUTE AUTO 2.85 K/mm3 (0.84-5.20); LYMPHOCYTES PERCENT AUTO 31 % (21-46); MONOCYTES ABSOLUTE AUTO 0.69 K/mm3 (0.16-1.47); MONOCYTES PERCENT AUTO 8 % (4-13); Mean Corpuscular HGB Conc 32.5 g/dL (31.5-36.5); Mean Corpuscular Volume 83 fL (80-100); Mean Platelet Volume 10.2 fL (9.1-12.4); NEUTROPHILS ABSOLUTE AUTO 5.33 K/mm3 (1.96-9.15); NEUTROPHILS PERCENT AUTO 58 % (41-73); Platelet Count 283 K/mm3 (150-400); RDW Coefficient Variation 17.9 % (11.7-14.2); RDW Standard Deviation 54.5 fL (35.1-46.3); Red Blood Cell Count 3.66 M/mm3 (3.80-5.20); White Blood Cell Count 9.21 K/mm3 (4.00-11.30)
[2024-11-20 05:31] LABS: Albumin, Blood 2.6 g/dL (3.4-5.0); Albumin/Globulin Ratio 0.4 (0.8-1.8); Bilirubin, Total 0.2 mg/dL (0.1-1.0); Bun/Creatinine Ratio 34.8 (12.0-20.0); Calcium, Blood 9.1 mg/dL (8.5-10.1); Creatinine, Blood 0.58 mg/dL (0.40-1.00); Globulin, Blood 6.1 g/dL (2.2-4.0); Total Protein, Blood 8.7 g/dL (6.4-8.2)
--- NOTE | 2024-11-20 06:45 | NUR ---
SHIFT SUMMARY PT ALERT AND ORIENTED TIMES 4. PT ADMITTED FOR UTI, DEHYDRATION, NAUSEA, VOMITING, AND HYPERGLYCEMIA. PT HAS RBKA PRIOR TO ADMIT. PT IS STAND BY ASSIST WITH CANE AND STAND AND PIVOT TO BEDSIDE COMMODE.PT HAS REDNESS JUST ABOVE COCCYX THAT IS BLANCHABLE, AND HAS DRESSING ON IT. PT TAKES MEDICATION WHOLE WITH WATER. CALL LIGHT WITHIN REACH, RAILS TIMES 2, BED IN LOW POSITION.
--- NOTE | 2024-11-20 07:12 | NUR ---
ASSUMED CARE: PT RESTING IN BED AT THIS TIME. CALL LIGHT IN REACH. NO ACUTE NEEDS OR CONCERNS AT THIS TIME.
[2024-11-20 07:24] VITALS: BP 121/71
[2024-11-20] MEDS ORDERED: Insulin Glargine-Yfgn 100 Unit/mL 3 ML SYR SC SCH ×2 (09:00)
--- NOTE | 2024-11-20 13:45 | NUR ---
REPORT GIVEN TO TAMIE GONZALEZ
[2024-11-20 16:25] VITALS: BP 131/68
--- NOTE | 2024-11-20 17:42 | NUR ---
SHIFT SUMMARY PATIENT ALERT AND INTERACTIVE. PATIENT ABLE TO MAKE NEEDS KNOWN. PATIENT UP TO BEDSIDE COMMODE INDEPENDENTLY. INDEPENDENTLY ABLE TO REPOSITION IN BED. PLAN TO DISCHARGE TOMORROW IF REMAINS STABLE.
[2024-11-20 19:44] VITALS: BP 117/68
[2024-11-21 05:28] VITALS: BP 134/65
[2024-11-21 07:36] VITALS: BP 125/73
[2024-11-21] MEDS ORDERED: AMOCLA875 PO (11:47)
--- NOTE | 2024-11-21 14:23 | NUR ---
DISCHARGE SUMMARY PT DISCHARGED ON 11/21/24 AT 1420. IV REMOVED, SITE WNL, CATHETER TIP INTACT. REVIEWED DISCHARGE PAPERWORK WITH PT, INSTRUCTED TO FOLLOW UP WITH PCP - PT STATES SHE ALREADY HAS AN APPOINTMENT SET UP. REVIEWED NEW MEDICATION ORDER FOR ANTIBIOTICS AND INSTRUCTED PT TO COMPLETE COARSE EVEN IF FEELING BETTER. PT TRANSFERED SELF TO , THIS RN WHEELED PT DOWN TO RIDE BY FAMILY FRIEND IN PRIVATE VEHICLE, PT ABLE TO TRANSFER SELF TO PRIVATE VEHICLE.
== END 2024-11-21 14:13 | disposition home or self-care (01) | DRG 872 ==
LOC: ER 12:47 → MEDS 12:48
PROVIDERS: Emergency Medicine; Family Medicine; ADMIT Student in an Organized Health Care Education/Training Program
DX: A41.51 Sepsis due to Escherichia coli [E. coli] (principal); N39.0 Urinary tract infection, site not specified; R65.20 Severe sepsis without septic shock; I10 Essential (primary) hypertension; M06.9 Rheumatoid arthritis, unspecified; M54.9 Dorsalgia, unspecified; G89.29 Other chronic pain; A41.01 Sepsis due to Methicillin susceptible Staphylococcus aureus; E78.5 Hyperlipidemia, unspecified; E11.65 Type 2 diabetes mellitus with hyperglycemia; E86.0 Dehydration; E11.40 Type 2 diabetes mellitus with diabetic neuropathy, unspecified; I25.10 Atherosclerotic heart disease of native coronary artery without angina pectoris; Z98.890 Other specified postprocedural states; Z90.49 Acquired absence of other specified parts of digestive tract; Z86.73 Personal history of transient ischemic attack (TIA), and cerebral infarction without residual deficits; Z85.3 Personal history of malignant neoplasm of breast; Z98.51 Tubal ligation status; Z90.710 Acquired absence of both cervix and uterus; Z90.721 Acquired absence of ovaries, unilateral; Z89.411 Acquired absence of right great toe; Z90.89 Acquired absence of other organs; Z98.42 Cataract extraction status, left eye; Z98.41 Cataract extraction status, right eye; Z88.2 Allergy status to sulfonamides; Z88.8 Allergy status to other drugs, medicaments and biological substances; Z91.040 Latex allergy status; Z79.82 Long term (current) use of aspirin; Z79.811 Long term (current) use of aromatase inhibitors; Z79.899 Other long term (current) drug therapy; Z79.4 Long term (current) use of insulin; Z79.85 Long-term (current) use of injectable non-insulin antidiabetic drugs; Z79.2 Long term (current) use of antibiotics
CPT/HCPCS: 0241U; 36415; 71045; 80053; 81001; 82803; 82947; 83605; 83735; 85025; 87040; 87077; 87086; 87147; 87186; 93005; 93010; 96361; 96365; 96366; 96375; 99285-25; A9270; G0378; J0692; J0696; J1650; J1815; J2405; J2765; J7030; J7050; J7120

== ENCOUNTER 2025-01-07 12:19 | Inpatient (IN) | payer OTHER ==
[~2025-01-07] VITALS: Ht 167.6 cm; Wt 59.4 kg
[~2025-01-07 12:19] MED LIST changes: +AMOCLA875 PO
[2025-01-07] MEDS ORDERED: Ondansetron HCl 2 MG / ML 2ML Vial IV ONE (14:55)
[2025-01-07] MEDS ORDERED: HYDROmorphone HCl/Pf 1MG SYR IV ONE (14:55)
[2025-01-07 15:05] LABS: BASOPHILS PERCENT AUTO 1 % (0-2); EOSINOPHILS PERCENT AUTO 1 % (0-6); Hematocrit 35.6 % (33.0-51.0); IMMATURE GRAN ABSOLUTE AUTO 0.11 K/mm3 (0.00-0.10); IMMATURE GRAN PERCENT AUTO 1 % (0-1); LYMPHOCYTES ABSOLUTE AUTO 1.62 K/mm3 (0.84-5.20); LYMPHOCYTES PERCENT AUTO 8 % (21-46); MONOCYTES ABSOLUTE AUTO 0.52 K/mm3 (0.16-1.47); MONOCYTES PERCENT AUTO 3 % (4-13); Mean Corpuscular HGB 29.1 pg (26.0-34.0); Mean Corpuscular HGB Conc 33.7 g/dL (31.5-36.5); Mean Corpuscular Volume 86 fL (80-100); Mean Platelet Volume 10.2 fL (9.1-12.4); NEUTROPHILS ABSOLUTE AUTO 18.46 K/mm3 (1.96-9.15); NEUTROPHILS PERCENT AUTO 88 % (41-73); Platelet Count 273 K/mm3 (150-400); RDW Coefficient Variation 14.3 % (11.7-14.2); RDW Standard Deviation 44.4 fL (35.1-46.3); Red Blood Cell Count 4.13 M/mm3 (3.80-5.20); White Blood Cell Count 20.91 K/mm3 (4.00-11.30)
[2025-01-07 15:21] LABS: International Normalized Ratio 0.95; Prothrombin Time Results 10.2 Sec (9.7-11.5)
[2025-01-07 15:34] LABS: Albumin, Blood 3.4 g/dL (3.4-5.0); Albumin/Globulin Ratio 0.6 (0.8-1.8); Bilirubin, Total 0.3 mg/dL (0.1-1.0); Bun/Creatinine Ratio 44.3 (12.0-20.0); Calcium, Blood 9.9 mg/dL (8.5-10.1); Creatinine, Blood 0.86 mg/dL (0.40-1.00); Globulin, Blood 5.9 g/dL (2.2-4.0); Potassium, Blood 5.9 mmol/L (3.5-5.5); Total Protein, Blood 9.3 g/dL (6.4-8.2)
[2025-01-07] MEDS ORDERED: Ondansetron 4 MG SoluTab MM PRN (15:35)
[2025-01-07] MEDS ORDERED: Polyethylene Glycol 3350 17 gm PO PRN (15:35)
[2025-01-07] MEDS ORDERED: Morphine Sulfate 4 MG/1 ML Injection IV PRN (15:40)
[2025-01-07] MEDS ORDERED: Insulin Human Lispro 100 Units/ML 3ML Syringe SC STA (15:46)
[2025-01-07] MEDS ORDERED: Insulin Glargine-Yfgn 100 Unit/mL 3 ML SYR SC SCH ×2 (16:00)
[2025-01-07] MEDS ORDERED: Insulin Human Lispro 100 Units/ML 3ML Syringe SC SCH (16:30)
[2025-01-07 16:35] LABS: Bun/Creatinine Ratio 40.7 (12.0-20.0); Calcium, Blood 9.7 mg/dL (8.5-10.1); Creatinine, Blood 0.91 mg/dL (0.40-1.00); Potassium, Blood 5.3 mmol/L (3.5-5.5)
[2025-01-07] MEDS ORDERED: NS 1,000 ML IV SCH ×2 (17:25→18:40)
[2025-01-07 17:40] LABS: Bun/Creatinine Ratio 41.5 (12.0-20.0); Creatinine, Blood 0.94 mg/dL (0.40-1.00); Potassium, Blood 5.8 mmol/L (3.5-5.5)
[2025-01-07] MEDS ORDERED: Insulin Regular 100 UNIT/ML 10ML Vial SC SCH (18:00)
[2025-01-07 18:06] VITALS: BP 96/60
[2025-01-07] MEDS ORDERED: CeFAZolin Sodium 2,000 MG in NS 100 ML IV SCH (18:20)
[2025-01-07] MEDS ORDERED: Tranexamic Acid 100 ML IV SCH (18:20)
--- NOTE | 2025-01-07 18:31 | NUR ---
arrival pt arrived to unit at approx 1800. pt has r hip fx. medicated for pain per emar. reports tolerable at this time. blood sugar greater than 500 on cbg prior to arrival, spoke with dr. henderson and pt was medicated with 15units insulin per emar. pt has valentine in place at this time. aa0x4.
[2025-01-07 20:21] VITALS: BP 85/54
--- NOTE | 2025-01-07 20:23 | NUR ---
PHYSICIAN COMMUNICATION CALL PLACED TO HOSPITALIST FOR BP OF 85/54 MAP 64 AND PT C/O PAIN 6-04/27. RECIEVED ORDER FOR 12.5-25 MIKES FENT Q4PRN. IVF INFUSING PER EMAR
[2025-01-07] MEDS ORDERED: FentaNYL Citrate 50 MCG/ML 2 ML Injection IV PRN (20:25)
[2025-01-07] MEDS ORDERED: Gabapentin 100 MG Cap PO SCH (21:00)
[2025-01-07 21:33] VITALS: BP 88/52
[2025-01-07 22:31] VITALS: BP 90/49
[2025-01-07 23:38] VITALS: BP 90/55
[2025-01-08] MEDS ORDERED: NS 1,000 ML IV ONE (00:40)
[2025-01-08 02:15] VITALS: BP 95/52
[2025-01-08 04:13] VITALS: BP 108/57
[2025-01-08] MEDS ORDERED: FentaNYL Citrate 50 MCG/ML 2 ML Injection IV PRN ×2 (04:20→09:50)
[2025-01-08 05:15] LABS: BASOPHILS ABSOLUTE AUTO 0.06 K/mm3 (0.00-0.23); BASOPHILS PERCENT AUTO 0 % (0-2); EOSINOPHILS ABSOLUTE AUTO 0.17 K/mm3 (0.00-0.68); EOSINOPHILS PERCENT AUTO 1 % (0-6); Hematocrit 30.6 % (33.0-51.0); Hemoglobin 10.3 g/dL (11.5-16.0); IMMATURE GRAN ABSOLUTE AUTO 0.04 K/mm3 (0.00-0.10); IMMATURE GRAN PERCENT AUTO 0 % (0-1); LYMPHOCYTES ABSOLUTE AUTO 2.32 K/mm3 (0.84-5.20); LYMPHOCYTES PERCENT AUTO 15 % (21-46); MONOCYTES PERCENT AUTO 4 % (4-13); Mean Corpuscular HGB 29.3 pg (26.0-34.0); Mean Corpuscular HGB Conc 33.7 g/dL (31.5-36.5); Mean Corpuscular Volume 87 fL (80-100); Mean Platelet Volume 10.1 fL (9.1-12.4); NEUTROPHILS ABSOLUTE AUTO 11.85 K/mm3 (1.96-9.15); NEUTROPHILS PERCENT AUTO 79 % (41-73); Platelet Count 221 K/mm3 (150-400); RDW Coefficient Variation 14.4 % (11.7-14.2); RDW Standard Deviation 45.1 fL (35.1-46.3); Red Blood Cell Count 3.51 M/mm3 (3.80-5.20); White Blood Cell Count 15.04 K/mm3 (4.00-11.30)
--- NOTE | 2025-01-08 05:19 | NUR ---
SHIFT SUMMARY VSS, PERSISTANT HYPOTENTION NOTED T/O THE NIGHT. IVF INFUSING PER HOSPITALIST. X1L BAG @ 250/HR AND ANOTHER 1L NS @75/HR. PT REPORTS NO SYMPTOMS OF LIGHTHEADEDNESS, DIZZINESS, PALPITATIONS, OR DIAPHORESIS. CBG NOTED TO DROP TO 144 AT 0000. NO INSULIN COVERAGE REQUIRED. PT HAS BEEN QUITE PAINFUL T/O THE NIGHT, DIFFICULT TO MEDICATE FOR PAIN W/ SOFT BP'S. PT TOLLERATING 50 MIKES FENT. GILL REMAINS IN PLACE, CLEAR YELLOW URINE NOTED. DRAINING TO GRAVITY. PT HAS SLEPT ON AND OFF T/O THE NIGHT. MADE NPO AT 0000 FOR SURGERY TODAY. PT DENIES ANY SENSATION CHANGES IN RLE, PT ABLE TO MOVE THIS LIMB FREELY BUT REPORTS 10/10 PAIN W/MOVEMENT. OTHERWISE, NO ACUTE EVENTS NOTED. PLAN FOR ORTHO INTERVENTION. THE PATIENT IS CURRENTLY SLEEPING, IN NO DISTRESS, CALL LIGHT IN REACH.
[2025-01-08 05:30] LABS: Bun/Creatinine Ratio 44.6 (12.0-20.0); Creatinine, Blood 0.76 mg/dL (0.40-1.00); Potassium, Blood 4.6 mmol/L (3.5-5.5)
[2025-01-08 07:18] VITALS: BP 103/58
[2025-01-08] MEDS ORDERED: Metoprolol Succinate 50 MG TABCR PO SCH (09:00)
[2025-01-08] MEDS ORDERED: Folic Acid 1 MG TAB PO SCH (09:00)
[2025-01-08] MEDS ORDERED: Magnesium Oxide 400 MG Tab PO SCH (09:00)
[2025-01-08] MEDS ORDERED: Lisinopril 5 MG Tab PO SCH (09:00)
[2025-01-08] MEDS ORDERED: DULoxetine HCL 30 MG Cap DR PO SCH (09:00)
[2025-01-08] MEDS ORDERED: RALOXIFENE HCL 60 MG PO SCH (09:00)
[2025-01-08] MEDS ORDERED: Pravastatin Sodium 20 MG Tab PO SCH (09:00)
[2025-01-08] MEDS ORDERED: OxyCODONE HCL 5 MG TAB PO PRN (09:50)
[2025-01-08] MEDS ORDERED: Acetaminophen 325 MG TABLET PO PRN (09:50)
[2025-01-08] MEDS ORDERED: Morphine Sulfate 4 MG/1 ML Injection IV PRN (09:55)
[2025-01-08] MEDS ORDERED: Insulin Regular 100 UNIT/ML 10ML Vial SC SCH (12:00)
[2025-01-08 15:16] VITALS: BP 99/51
[2025-01-08 15:17] VITALS: BP 103/52
--- NOTE | 2025-01-08 17:20 | NUR ---
end of shift Pt resting comfortably. denies complaints. awaiting surgery in the am.
[2025-01-08] MEDS ORDERED: Insulin Glargine-Yfgn 100 Unit/mL 3 ML SYR SC SCH (18:00)
[2025-01-08 19:22] VITALS: BP 109/58
[2025-01-09] MEDS ORDERED: NS 1,000 ML IV SCH (01:50)
--- NOTE | 2025-01-09 01:53 | NUR ---
CALL TO HOSPITALIST. ORDER RECEIVED FOR NS 75ML/HR X 1 BAG PT NPO PRIOR TO PROCEDURE.
[2025-01-09 04:55] LABS: BASOPHILS ABSOLUTE AUTO 0.08 K/mm3 (0.00-0.23); BASOPHILS PERCENT AUTO 1 % (0-2); EOSINOPHILS ABSOLUTE AUTO 0.25 K/mm3 (0.00-0.68); EOSINOPHILS PERCENT AUTO 2 % (0-6); Hematocrit 33.9 % (33.0-51.0); Hemoglobin 11.2 g/dL (11.5-16.0); IMMATURE GRAN ABSOLUTE AUTO 0.04 K/mm3 (0.00-0.10); IMMATURE GRAN PERCENT AUTO 0 % (0-1); LYMPHOCYTES ABSOLUTE AUTO 2.22 K/mm3 (0.84-5.20); LYMPHOCYTES PERCENT AUTO 19 % (21-46); MONOCYTES ABSOLUTE AUTO 0.56 K/mm3 (0.16-1.47); MONOCYTES PERCENT AUTO 5 % (4-13); Mean Corpuscular HGB 28.9 pg (26.0-34.0); Mean Corpuscular Volume 87 fL (80-100); Mean Platelet Volume 10.4 fL (9.1-12.4); NEUTROPHILS ABSOLUTE AUTO 8.83 K/mm3 (1.96-9.15); NEUTROPHILS PERCENT AUTO 74 % (41-73); Platelet Count 222 K/mm3 (150-400); Red Blood Cell Count 3.88 M/mm3 (3.80-5.20); White Blood Cell Count 11.98 K/mm3 (4.00-11.30)
[2025-01-09 05:16] LABS: Bun/Creatinine Ratio 35.5 (12.0-20.0); Creatinine, Blood 0.56 mg/dL (0.40-1.00); Potassium, Blood 4.4 mmol/L (3.5-5.5)
[2025-01-09 05:56] VITALS: BP 113/62
--- NOTE | 2025-01-09 06:10 | NUR ---
SHIFT SUMMARY NOC. PT A/O X3-4, FORGETFUL AT TIMES. ADMIT FOR RIGHT HIP FX. MEDICATED FOR PAIN WITH ORAL OXY AND TYLENOL. PT REPORTED RELIEF OF SX. PT'S GILL IS PATENT AND FREE OF KINKS, DRAINING YELLOW URINE. PT NPO SINCE 0000 ASIDE FROM SIPS OF WATER FOR ORAL PAIN PILLS. BED ALARM SET FOR SAFETY BUT PT DID NOT SET OFF ALARM. PT MAKES NEEDS KNOWN. CALL LIGHT IN REACH.
[2025-01-09 07:18] VITALS: BP 124/53
[2025-01-09 09:27] VITALS: BP 108/57
[2025-01-09] MEDS ORDERED: Insulin Regular 100 UNIT/ML 10ML Vial SC SCH (11:30)
[2025-01-09 11:42] LABS: Source, Urine Foley catheter
[2025-01-09 12:19] LABS: Appearance, Urine Clear (Clear); Bilirubin, Urine Neg (Neg); Blood, Urine 3+ (Neg); Color, Urine Yellow (P-Yellow); Glucose Qualitative, Urine 3+ (Neg); Ketones, Urine Neg (Neg); Leukocyte Esterase, Urine 3+ (Neg); Nitrite, Urine Neg (Neg); Protein, Urine 2+ (Neg); Urobilinogen, Urine NORM (Normal)
[2025-01-09 12:55] LABS: Squamous Epithelial Cells Rare /hpf (Few); White Blood Cells, Urine 25-50 /hpf (0-5)
[2025-01-09 12:56] LABS: Bacteria Few /hpf
[2025-01-09 14:48] VITALS: BP 121/60
[2025-01-09] MEDS ORDERED: Morphine Sulfate 4 MG/1 ML Injection IV PRN (16:00)
[2025-01-09] MEDS ORDERED: NS 250 ML IV PRN (17:50)
[2025-01-09] MEDS ORDERED: CefTRIAXone Sodium 1,000 MG in NS 100 ML IV SCH (18:00)
--- NOTE | 2025-01-09 19:20 | NUR ---
SHIFT SUMMARY PT IS AWAITING SURGERY FOR R FEMUR FX. 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 PT REPORTS SHE IS COMFORTABLE W/O PAIN MEDS. IV ABX GIVEN ORDERED. SURGERY DELAYED DUE TO UTI. PT TOLERATING CONS CARB DIET AND FLUIDS. VSS. AM MEDS NOT GIVEN DUE TO PT BEING NPO FOR SURGERY, CONFIRMED OK TO GIVE LATE W/ DR MAYORGA SO MEDS GIVEN THIS AFTERNOON. DR. MAYORGA ALSO AWARE OF PT'S HYPOTENSION AND LISINOPRIL HELD THIS AM W/O FURTHER ORDERS RECIEVED. PT RESTING IN ROOM W/ BED ALARM ON AND CALL LIGHT IN REACH.
[2025-01-09 19:27] VITALS: BP 116/68
[2025-01-09] MEDS ORDERED: Lactobacil 2-S.Thermo-Bifido 1 1 Cap PO SCH (21:00)
[2025-01-10 03:29] VITALS: BP 121/65
[2025-01-10 04:31] LABS: BASOPHILS ABSOLUTE AUTO 0.08 K/mm3 (0.00-0.23); BASOPHILS PERCENT AUTO 1 % (0-2); EOSINOPHILS ABSOLUTE AUTO 0.31 K/mm3 (0.00-0.68); EOSINOPHILS PERCENT AUTO 3 % (0-6); Hematocrit 32.2 % (33.0-51.0); Hemoglobin 10.7 g/dL (11.5-16.0); IMMATURE GRAN ABSOLUTE AUTO 0.03 K/mm3 (0.00-0.10); IMMATURE GRAN PERCENT AUTO 0 % (0-1); LYMPHOCYTES ABSOLUTE AUTO 2.52 K/mm3 (0.84-5.20); LYMPHOCYTES PERCENT AUTO 23 % (21-46); MONOCYTES ABSOLUTE AUTO 0.87 K/mm3 (0.16-1.47); MONOCYTES PERCENT AUTO 8 % (4-13); Mean Corpuscular HGB 28.8 pg (26.0-34.0); Mean Corpuscular HGB Conc 33.2 g/dL (31.5-36.5); Mean Corpuscular Volume 87 fL (80-100); Mean Platelet Volume 10.4 fL (9.1-12.4); NEUTROPHILS ABSOLUTE AUTO 7.05 K/mm3 (1.96-9.15); NEUTROPHILS PERCENT AUTO 65 % (41-73); Platelet Count 240 K/mm3 (150-400); RDW Coefficient Variation 13.8 % (11.7-14.2); RDW Standard Deviation 42.6 fL (35.1-46.3); Red Blood Cell Count 3.72 M/mm3 (3.80-5.20); White Blood Cell Count 10.86 K/mm3 (4.00-11.30)
[2025-01-10 05:05] LABS: Albumin, Blood 2.8 g/dL (3.4-5.0); Albumin/Globulin Ratio 0.5 (0.8-1.8); Bilirubin, Total 0.2 mg/dL (0.1-1.0); Bun/Creatinine Ratio 31.8 (12.0-20.0); Creatinine, Blood 0.54 mg/dL (0.40-1.00); Globulin, Blood 5.5 g/dL (2.2-4.0); Potassium, Blood 4.3 mmol/L (3.5-5.5); Total Protein, Blood 8.3 g/dL (6.4-8.2)
[2025-01-10] MEDS ORDERED: NS 1,000 ML IV SCH ×2 (05:05→22:05)
--- NOTE | 2025-01-10 05:27 | NUR ---
SHIFT SUMMARY NO ACUTE CHANGES THIS SHIFT. PT NPO SINCE MIDNIGHT. GILL TO GRAVITY; CLOUDY, ODOROUS YELLOW URINE NOTED. UA SENT DURING PREVIOUS SHIFT. REPORTS MINIMAL PAIN TO RIGHT HIP, MEDICATED X 1 PER EMAR. ABLE TO ASSIST WITH REPOSITIONING, MIYA. PLAN FOR POSSIBLE SURGERY TODAY. WILL GIVE REPORT TO ONCOMING RN.
[2025-01-10 07:11] VITALS: BP 130/72
[2025-01-10] MEDS ORDERED: Insulin Regular 100 UNIT/ML 10ML Vial SC SCH ×2 (12:00→16:30)
[2025-01-10] MEDS ORDERED: Vancomycin HCL 1,250 MG in NS 250 ML IV ONE (12:35)
[2025-01-10 14:16] VITALS: BP 112/60
[2025-01-10] MEDS ORDERED: Insulin Glargine-Yfgn 100 Unit/mL 3 ML SYR SC ONE ×2 (19:00→20:00)
[2025-01-10 19:49] VITALS: BP 113/64
--- NOTE | 2025-01-10 20:19 | NUR ---
SHIFT SUMMARY PT IS A/OX3-4, FOLLOWS COMMANDS. AWAITING SURGERY FOR R FEMUR FX. IV ABX AND FLUIDS GIVEN ORDERED. PT WILL BE NPO @ 0000 TONIGHT. CAP REFILL TO RLE 2 SECS, PT DENIES N/T. VSS. PT TOLERATING CONS CARB DIET, DRINKING FLUIDS. GILL IN PLACE DRAINING YELLOW URINE. PT RESTING IN BED W/ CALL LIGHT IN REACH, BED ALARM ON.
--- NOTE | 2025-01-10 22:01 | NUR ---
PROVIDER NOTIFIED NEW ORDER OBTAINED FROM HOSPITALIST FOR IVF NS 75MLS/HR R/T NPO STATUS AFTER MIDNIGHT. WILL IMPLEMENT ORDERED.
[2025-01-11] VITALS (15 sets, daily range): BP systolic 88–130; BP diastolic 49–72
[2025-01-11 05:37] LABS: BASOPHILS ABSOLUTE AUTO 0.07 K/mm3 (0.00-0.23); BASOPHILS PERCENT AUTO 1 % (0-2); EOSINOPHILS ABSOLUTE AUTO 0.28 K/mm3 (0.00-0.68); EOSINOPHILS PERCENT AUTO 2 % (0-6); Hemoglobin 10.5 g/dL (11.5-16.0); IMMATURE GRAN ABSOLUTE AUTO 0.04 K/mm3 (0.00-0.10); IMMATURE GRAN PERCENT AUTO 0 % (0-1); LYMPHOCYTES ABSOLUTE AUTO 1.71 K/mm3 (0.84-5.20); LYMPHOCYTES PERCENT AUTO 14 % (21-46); MONOCYTES ABSOLUTE AUTO 0.89 K/mm3 (0.16-1.47); MONOCYTES PERCENT AUTO 7 % (4-13); Mean Corpuscular HGB 28.7 pg (26.0-34.0); Mean Corpuscular HGB Conc 32.8 g/dL (31.5-36.5); Mean Corpuscular Volume 87 fL (80-100); Mean Platelet Volume 10.5 fL (9.1-12.4); NEUTROPHILS ABSOLUTE AUTO 9.39 K/mm3 (1.96-9.15); NEUTROPHILS PERCENT AUTO 76 % (41-73); Platelet Count 263 K/mm3 (150-400); RDW Coefficient Variation 13.8 % (11.7-14.2); RDW Standard Deviation 44.3 fL (35.1-46.3); Red Blood Cell Count 3.66 M/mm3 (3.80-5.20); White Blood Cell Count 12.38 K/mm3 (4.00-11.30)
[2025-01-11 05:52] LABS: Bun/Creatinine Ratio 20.7 (12.0-20.0); Calcium, Blood 8.8 mg/dL (8.5-10.1); Creatinine, Blood 0.53 mg/dL (0.40-1.00); Potassium, Blood 3.6 mmol/L (3.5-5.5)
--- NOTE | 2025-01-11 06:03 | NUR ---
NPO POST MN. IVF NS AT 75/HR STARTED AFTER MN. IV SITE CLEAR AND PATENT. BEDREST. PENDING POSSIBLE SURGERY TODAY FOR RIGHT FEMORAL FX. HX RT BKA. IF CULTURES SHOW MRSA THEN SURGERY MAY BE POSTPONED. GILL CATH PATENT WITH ADEQUATE URINE OUTPUT. NO LEAKING NOTED T/O NOC. ATTENDS DRY. CALL LIGHT IN REACH AND BED IN LOWEST POSITION. WILL GIVE REPORT TO ONCOMING RN TAKING PT.
[2025-01-11] MEDS ORDERED: Lactated Ringer's 1,000 ML IV SCH ×2 (10:25→11:05)
--- NOTE | 2025-01-11 10:45 | NUR ---
Pt. is awake in bed when she welcomes my visit. This financial advisor trainee has met this Pt. on a previous hospitalization. Pt. is pleasant. Facililtated an update and life review. Pt. verbalizd that she is anticipating hip suregery today. Listen with empathy and a calming presence. Pt. also verbalized that she had been visited by her photographic enlarger operator. Considered matters of davion and belief. Prayed for the Pt. Pt. had become somnolent during the prayer. Will remain available to the Pt.
--- NOTE | 2025-01-11 11:22 | NUR ---
INTO SDS VIA BED. History, Chart, Medications and Allergies reviewed before start of procedure.Lungs clear T/O to Auscultation. Patient confirms NPO status and agrees with scheduled surgery.LUNGS DIMINISHED IN BASES.-SATS 94% ON RA.
[2025-01-11] MEDS ORDERED: Acetaminophen 500 MG Tab PO SCH (12:25)
[2025-01-11] MEDS ORDERED: Bupivacaine 0.5% Inj 10 ML Vial ONE (12:26)
[2025-01-11] MEDS ORDERED: FentaNYL Citrate 50 MCG/ML 2 ML Injection ONE (12:36)
[2025-01-11] MEDS ORDERED: Ondansetron HCl 2 MG / ML 2ML Vial ONE (13:07)
[2025-01-11] MEDS ORDERED: Metoclopramide HCl 5MG / ML 2ML Vial ONE (13:07)
[2025-01-11] MEDS ORDERED: Ketorolac Tromethamine 30mg Vial ONE (13:53)
[2025-01-11] MEDS ORDERED: Vancomycin HCL 1,000 MG in NS 250 ML IV SCH (14:00)
[2025-01-11] MEDS ORDERED: Enoxaparin 40 MG/0.4 ML SYR SC SCH (15:00)
--- NOTE | 2025-01-11 15:09 | NUR ---
RN NOTE RETURNED FROM OR AT 1500HRS. AWAKE, APPROPRIATE CONVERSATION. FAMILY AT BEDSIDE. ACEWRAP DRESSING TO RIGHT STUMP C,D,I. FOAM DRESSING RIGHT HIP C,D,I. NO SENSATION TO LEGS S/P SPINAL ANESTHESIA. NO PAIN.
--- NOTE | 2025-01-11 17:17 | NUR ---
SHIFT SUMMARY MS WILLIS RETURNED FROM O.R. AT 1500HRS. SHE IS AWAKE, APPROPRIATE CONVERSATION. R HIP DRESSING C,D,I. SENSATION IS RETURNING TO HER LEGS AFTER SPINAL ANESTHESIA. PAIN IS WELL CONTROLLED AND PT EDUCATED ON PAIN CONTROL. DREW WRAP TO RIGHT STUMP C,D,I. ON 2L N/C POST OP. EDUCATED ON INCENTIVE SPIROMETER; GOOD TECHNIQUE TO 1000CC. GILL CATHETER IN PLACE WITH CLEAR YELLOW UOP THIS SHIFT. FAMILY VISITED TODAY. BED LOW, CALL LIGHT IN REACH, BED ALARM ON.
[2025-01-11] MEDS ORDERED: CeFAZolin Sodium 1,000 MG in NS 50 ML IV SCH (22:00)
[2025-01-12 03:28] VITALS: BP 109/58
[2025-01-12 05:12] LABS: BASOPHILS ABSOLUTE AUTO 0.07 K/mm3 (0.00-0.23); BASOPHILS PERCENT AUTO 1 % (0-2); EOSINOPHILS ABSOLUTE AUTO 0.33 K/mm3 (0.00-0.68); EOSINOPHILS PERCENT AUTO 3 % (0-6); Hematocrit 28.8 % (33.0-51.0); Hemoglobin 9.5 g/dL (11.5-16.0); IMMATURE GRAN ABSOLUTE AUTO 0.04 K/mm3 (0.00-0.10); IMMATURE GRAN PERCENT AUTO 0 % (0-1); LYMPHOCYTES ABSOLUTE AUTO 1.59 K/mm3 (0.84-5.20); LYMPHOCYTES PERCENT AUTO 16 % (21-46); MONOCYTES ABSOLUTE AUTO 0.77 K/mm3 (0.16-1.47); MONOCYTES PERCENT AUTO 8 % (4-13); Mean Corpuscular HGB 29.1 pg (26.0-34.0); Mean Corpuscular Volume 88 fL (80-100); Mean Platelet Volume 10.6 fL (9.1-12.4); NEUTROPHILS ABSOLUTE AUTO 7.01 K/mm3 (1.96-9.15); NEUTROPHILS PERCENT AUTO 72 % (41-73); Platelet Count 259 K/mm3 (150-400); RDW Coefficient Variation 13.7 % (11.7-14.2); Red Blood Cell Count 3.27 M/mm3 (3.80-5.20); White Blood Cell Count 9.81 K/mm3 (4.00-11.30)
[2025-01-12 05:31] LABS: Bun/Creatinine Ratio 26.1 (12.0-20.0); Calcium, Blood 8.3 mg/dL (8.5-10.1); Creatinine, Blood 0.65 mg/dL (0.40-1.00); Potassium, Blood 3.9 mmol/L (3.5-5.5)
[2025-01-12 07:09] VITALS: BP 105/58
--- NOTE | 2025-01-12 07:30 | NUR ---
SHIFT SUMMARY ALERT AND ORIENTED X3. DRSG RT HIP AND DREW WRAP TO RIGHT STUMP C/D/I. MEDICATED PT PRN FOR PAIN AND SCHEDULED MEDS GIVEN ORDERED PER EMAR. JACK AREA RED. GILL CATH PATENT WITH YELLOW URINE WITH SEDIMENT NOTED IN TUBING. PATIENT WEARS A BRIEF AT HOME. HX CHRONIC UTI'S PER PATIENTS FAMILY MEMBER. ENCOURAGED INCREASING PO INTAKE. SL PATENT, SITE CLEAR. BED IN LOWEST POSITION, CALL LIGHT IN REACH. REPOSITIONED PATIENT FOR COMFORT T/O NOC. RESTED WELL WHEN UNDISTURBED. REPORT TO RN TAKING PATIENT.
[2025-01-12] MEDS ORDERED: Enoxaparin 40 MG/0.4 ML SYR SC SCH (09:00)
--- NOTE | 2025-01-12 11:11 | NUR ---
Pt. is awake in bed and welcomes my visit. Pt. is pleasant and verbalized that her pain and discomfort have been greatly minimized. Pt. is unsettled with how she will manuever without putting weight on her "good" leg. Seek to normalize the Pt. experience. Considered matters of davion and belief. Prayed with Pt. Pt. verbalized gratitude for the spiritual care visit.
[2025-01-12 11:50] VITALS: BP 100/60; BP 99/61
--- NOTE | 2025-01-12 13:40 | NUR ---
ASSUMED CARE OF PT FROM TSERING WILLETT. PT RESTING IN BED, DENIES NEEDS AT THIS TIME. CALL LIGHT IN REACH.
--- NOTE | 2025-01-12 13:45 | NUR ---
MORNING SUMMARY THE PT IS A&OX4, NON WEIGHT BEARING ON THE RIGHT LEG, AND SHE IS POD 1 POST RIGHT CLOSED REDUCTION W/ PIN FIXATION. THE PT WORKED WITH PHYSICAL THERAPY AND SHE IS A 1P SLIDE BOARD OR 2P STAND AND PIVOT. HER RIGHT HIP DRESSING REMAINS C/D/I. THE PT HAS A GILL DRAINING TO GRAVITY, NO COMPLAINTS OF ANY URINARY DISCOMFORT. URINE CLEAR-YELLOW W/ NOTED SEDIMENT. THE PT HAS BEEN HAVING PAIN AND HAS BEEN MEDICATED PER EMAR W/ ORAL MEDICATIONS. SHE REMAINS ON RA AND DENIES ANY SOB. SHE IS W/O TELE AND BP HAS BEEN STABLE. SHE IS ACHS BLOOD SUGARS AND HAS BEEN MEDICATED PER MED SLIDING SCALE. THE CIGAR PATCHER JUST CALLED AND STATED THAT THE PT WAS ACCEPTED TO [facility], WAITING ON INSURANCE AUTH. THE TP MAY DISCHARGE TO [facility] TODAY. CARE WAS HANDED OFF TO STACEY WILLETT. NO FURTHER NOTES FROM THIS RN.
[2025-01-12 14:42] VITALS: BP 99/63
--- NOTE | 2025-01-12 17:00 | NUR ---
SHIFT SUMMARY PT IS A/OX4, RESPONSIVE, RESTING PEACEFULLY IN ROOM. DRESSINGS TO R HIP AND STUMP C/D/I. CAP REFILL 2 SECS. PT REPORTS PAIN IS TOLERABLE AT THIS TIME. GILL DC'D THIS AFTERNOON, WAITING ON VOID. PLAN TO DC TO [facility] TOMORROW. VSS, BP SOFT BUT MAP >60. PT RESTING W/ CALL LIGHT IN REACH.
[2025-01-12 19:47] VITALS: BP 127/66
[2025-01-13 04:11] VITALS: BP 115/64
--- NOTE | 2025-01-13 04:25 | NUR ---
SHIFT SUMMARY POD 2 R FEMUR ORIF. NO ACUTE CHANGES OVERNIGHT. VSS. TOLERATING ORALS, DENIES N/V. IV FLUIDS/ABX INFUSING PER EMAR. VOIDING, ATTENDS IN USE. R HIP DRESSING C/D/I, R STUMP c DREW WRAP C/D/I. NWB ON RLE, NO AMB OVERNIGHT. ANTIICIPATED DC TO SNF. CALL LIGHT IN REACH, BED ALARM IN USE, WILL REPORT TO DAY RN.
[2025-01-13 06:44] LABS: BASOPHILS ABSOLUTE AUTO 0.11 K/mm3 (0.00-0.23); BASOPHILS PERCENT AUTO 1 % (0-2); EOSINOPHILS ABSOLUTE AUTO 0.29 K/mm3 (0.00-0.68); EOSINOPHILS PERCENT AUTO 3 % (0-6); Hemoglobin 10.6 g/dL (11.5-16.0); IMMATURE GRAN ABSOLUTE AUTO 0.15 K/mm3 (0.00-0.10); IMMATURE GRAN PERCENT AUTO 2 % (0-1); LYMPHOCYTES ABSOLUTE AUTO 1.73 K/mm3 (0.84-5.20); LYMPHOCYTES PERCENT AUTO 17 % (21-46); MONOCYTES ABSOLUTE AUTO 1.04 K/mm3 (0.16-1.47); MONOCYTES PERCENT AUTO 10 % (4-13); Mean Corpuscular HGB 29.2 pg (26.0-34.0); Mean Corpuscular HGB Conc 34.2 g/dL (31.5-36.5); Mean Corpuscular Volume 85 fL (80-100); NEUTROPHILS ABSOLUTE AUTO 6.82 K/mm3 (1.96-9.15); NEUTROPHILS PERCENT AUTO 67 % (41-73); RDW Coefficient Variation 13.3 % (11.7-14.2); RDW Standard Deviation 41.1 fL (35.1-46.3); Red Blood Cell Count 3.63 M/mm3 (3.80-5.20); White Blood Cell Count 10.14 K/mm3 (4.00-11.30)
[2025-01-13 06:53] LABS: Calcium, Blood 8.7 mg/dL (8.5-10.1); Creatinine, Blood 0.44 mg/dL (0.40-1.00)
[2025-01-13 07:01] LABS: Mean Platelet Volume 10.3 fL (9.1-12.4); Platelet Count 240 K/mm3 (150-400)
[2025-01-13 07:17] VITALS: BP 120/67
--- NOTE | 2025-01-13 10:17 | NUR ---
PT LEAVING TO [facility] AT APPROX 1100 PER [employer] ARCHITECT. PT AWARE AND AGREEING TO PLAN. PT'S PERSONAL BELONGINGS PACKED UP AND READY TO GO.
--- NOTE | 2025-01-13 10:25 | NUR ---
ATTEMPTED TO CALL [facility] TO GIVE REPORT. UNABLE TO TAKE REPORT AT THIS TIME. WILL TRY AGAIN.
--- NOTE | 2025-01-13 10:40 | NUR ---
ATTEMPTED TO GIVE REPORT AGAIN TO [facility].
--- NOTE | 2025-01-13 10:52 | NUR ---
PT TO [facility] AT THIS TIME. DISCHARGE PACKET GIVEN TO CARBONATION EQUIPMENT TENDER. PT LEFT WITH ALL PERSONAL BELONGINGS.
--- NOTE | 2025-01-13 12:06 | NUR ---
REPORT GIVEN TO RANJANA AT [facility].
== END 2025-01-13 10:50 | DRG 481 ==
LOC: ER 12:19 → SURS 15:23
PROVIDERS: Orthopaedic Surgery; Student in an Organized Health Care Education/Training Program; ADMIT Family Medicine
PROC: 0QSB34Z Reposition Right Lower Femur with Internal Fixation Device, Percutaneous Approach (ICD-10-PCS; principal; 2025-01-11 12:00)
DX: S72.091A Other fracture of head and neck of right femur, initial encounter for closed fracture (principal); E87.1 Hypo-osmolality and hyponatremia; N39.0 Urinary tract infection, site not specified; I10 Essential (primary) hypertension; M06.9 Rheumatoid arthritis, unspecified; M54.9 Dorsalgia, unspecified; G89.29 Other chronic pain; E78.5 Hyperlipidemia, unspecified; Z96.651 Presence of right artificial knee joint; E11.65 Type 2 diabetes mellitus with hyperglycemia; E87.5 Hyperkalemia; E11.40 Type 2 diabetes mellitus with diabetic neuropathy, unspecified; F32.A Depression, unspecified; I25.10 Atherosclerotic heart disease of native coronary artery without angina pectoris; B95.62 Methicillin resistant Staphylococcus aureus infection as the cause of diseases classified elsewhere; Z88.2 Allergy status to sulfonamides; Z91.040 Latex allergy status; Z88.8 Allergy status to other drugs, medicaments and biological substances; Z79.899 Other long term (current) drug therapy; Z79.85 Long-term (current) use of injectable non-insulin antidiabetic drugs; Z79.82 Long term (current) use of aspirin; Z79.4 Long term (current) use of insulin; Z79.811 Long term (current) use of aromatase inhibitors; Z86.73 Personal history of transient ischemic attack (TIA), and cerebral infarction without residual deficits; Z98.890 Other specified postprocedural states; Z90.49 Acquired absence of other specified parts of digestive tract; Z98.51 Tubal ligation status; Z90.710 Acquired absence of both cervix and uterus; Z90.721 Acquired absence of ovaries, unilateral; Z89.411 Acquired absence of right great toe; Z90.13 Acquired absence of bilateral breasts and nipples; Z98.42 Cataract extraction status, left eye; Z98.41 Cataract extraction status, right eye; Z87.01 Personal history of pneumonia (recurrent); Z86.19 Personal history of other infectious and parasitic diseases; Z85.3 Personal history of malignant neoplasm of breast; W18.39XA Other fall on same level, initial encounter
CPT/HCPCS: 36415; 51702; 72170; 72192; 73552; 80048; 80053; 81001; 82010; 82947; 85025; 85610; 85730; 87077; 87086; 87186; 93005; 93010; 96374; 96375; 97110; 97161; 97165; 97530; 97535; 99284-25; A9270; C1713; C1769; J0690; J0696; J1171; J1650; J1815; J1885; J2270; J2405; J2765; J3010; J3370; J7030; J7050; J7120

== ENCOUNTER 2025-01-26 00:14 | Inpatient (IN) | payer OTHER ==
[~2025-01-26] VITALS: Ht 167.6 cm; Wt 59.0 kg
[~2025-01-26 00:14] MED LIST changes: -ZINC15 PO; +Zinc PO
[2025-01-26 01:23] LABS: BASOPHILS ABSOLUTE AUTO 0.11 K/mm3 (0.00-0.23); BASOPHILS PERCENT AUTO 1 % (0-2); EOSINOPHILS ABSOLUTE AUTO 0.01 K/mm3 (0.00-0.68); EOSINOPHILS PERCENT AUTO 0 % (0-6); Hematocrit 38.6 % (33.0-51.0); Hemoglobin 12.6 g/dL (11.5-16.0); IMMATURE GRAN ABSOLUTE AUTO 0.05 K/mm3 (0.00-0.10); IMMATURE GRAN PERCENT AUTO 0 % (0-1); LYMPHOCYTES ABSOLUTE AUTO 2.16 K/mm3 (0.84-5.20); LYMPHOCYTES PERCENT AUTO 14 % (21-46); MONOCYTES ABSOLUTE AUTO 0.47 K/mm3 (0.16-1.47); MONOCYTES PERCENT AUTO 3 % (4-13); Mean Corpuscular HGB 27.9 pg (26.0-34.0); Mean Corpuscular HGB Conc 32.6 g/dL (31.5-36.5); Mean Corpuscular Volume 85 fL (80-100); Mean Platelet Volume 9.7 fL (9.1-12.4); NEUTROPHILS PERCENT AUTO 82 % (41-73); Platelet Count 549 K/mm3 (150-400); RDW Coefficient Variation 13.1 % (11.7-14.2); RDW Standard Deviation 41.1 fL (35.1-46.3); Red Blood Cell Count 4.52 M/mm3 (3.80-5.20)
[2025-01-26 01:42] LABS: Albumin, Blood 3.1 g/dL (3.4-5.0); Albumin/Globulin Ratio 0.4 (0.8-1.8); Bilirubin, Total 0.3 mg/dL (0.1-1.0); Bun/Creatinine Ratio 57.9 (12.0-20.0); Calcium, Blood 9.4 mg/dL (8.5-10.1); Creatinine, Blood 0.54 mg/dL (0.40-1.00); Globulin, Blood 6.9 g/dL (2.2-4.0); Magnesium, Blood 2.1 mg/dL (1.6-2.4); Potassium, Blood 3.7 mmol/L (3.5-5.5); Thyroid Stimulating Hormone 0.706 uIU/mL (0.360-4.800)
[2025-01-26] MEDS ORDERED: Ondansetron HCl 2 MG / ML 2ML Vial IV ONE (02:35)
[2025-01-26] MEDS ORDERED: NS 1,000 ML IV SCH (02:40)
[2025-01-26 03:14] LABS: Influenza A, PCR NEGATIVE (NEGATIVE); Influenza B, PCR NEGATIVE (NEGATIVE); Resp Syncytial Virus, PCR NEGATIVE (NEGATIVE); SARS-Cov-2 (COVID-19) PCR, MMC NEGATIVE (NEGATIVE)
[2025-01-26] MEDS ORDERED: Metoclopramide HCl 5MG / ML 2ML Vial IV ONE (05:55)
[2025-01-26] MEDS ORDERED: CefTRIAXone Sodium 1,000 MG in NS 50 ML IV ONE (06:10)
[2025-01-26] MEDS ORDERED: Prochlorperazine Edisylate 10 mg Vial IV ONE (07:10)
[2025-01-26] MEDS ORDERED: Ondansetron 4 MG SoluTab MM PRN (08:50)
[2025-01-26] MEDS ORDERED: Polyethylene Glycol 3350 17 gm PO PRN (08:55)
[2025-01-26] MEDS ORDERED: Enoxaparin 40 MG/0.4 ML SYR SC SCH (09:00)
[2025-01-26] MEDS ORDERED: DULoxetine HCL 60 MG Capsule DR PO SCH (09:00)
[2025-01-26] MEDS ORDERED: Gabapentin 100 MG Cap PO SCH (09:00)
[2025-01-26] MEDS ORDERED: Aspirin 81 MG TabEC PO SCH (09:00)
[2025-01-26] MEDS ORDERED: RALOXIFENE HCL 60 MG PO SCH (09:00)
[2025-01-26] MEDS ORDERED: Magnesium Oxide 400 MG Tab PO SCH (09:00)
[2025-01-26] MEDS ORDERED: Clopidogrel Bisulfate 75 MG Tab PO SCH (09:00)
[2025-01-26] MEDS ORDERED: Pravastatin Sodium 20 MG Tab PO SCH (09:00)
[2025-01-26] MEDS ORDERED: Folic Acid 1 MG TAB PO SCH (09:00)
[2025-01-26] MEDS ORDERED: Lisinopril 5 MG Tab PO SCH (09:00)
[2025-01-26] MEDS ORDERED: Insulin Human Lispro 100 Units/ML 3ML Syringe SC ONE (09:00)
[2025-01-26] MEDS ORDERED: Docusate Sodium 100 MG Cap PO SCH (09:00)
[2025-01-26] MEDS ORDERED: Metoprolol Succinate 50 MG TABCR PO SCH (09:00)
[2025-01-26] MEDS ORDERED: Insulin Glargine-Yfgn 100 Unit/mL 3 ML SYR SC SCH (09:00)
[2025-01-26] MEDS ORDERED: Ondansetron HCl 2 MG / ML 2ML Vial IV PRN (09:05)
[2025-01-26] MEDS ORDERED: Prochlorperazine Edisylate 10 mg Vial IV PRN (09:05)
[2025-01-26] MEDS ORDERED: Insulin Human Lispro 100 Units/ML 3ML Syringe SC SCH (12:00)
[2025-01-26 13:24] LABS: Source, Urine Clean Catch
[2025-01-26 13:33] LABS: Appearance, Urine Clear (Clear); Bilirubin, Urine Neg (Neg); Blood, Urine 5+ (Neg); Color, Urine Yellow (P-Yellow); Glucose Qualitative, Urine 4+ (Neg); Ketones, Urine 2+ (Neg); Leukocyte Esterase, Urine 3+ (Neg); Nitrite, Urine Neg (Neg); Protein, Urine 3+ (Neg); Urobilinogen, Urine NORM (Normal)
[2025-01-26 13:53] LABS: Bacteria Mod /hpf; Squamous Epithelial Cells Few /hpf (Few); Transitional Epithelial Cells Rare /hpf (0-Rare); Yeast/Fungi Urine Mod /hpf
--- NOTE | 2025-01-26 14:00 | NUR ---
ADMISSION NOTE PATIENT ADMITTED TO ROOM 338 FROM THE EMERGENCY ROOM. PATIENT COMPLAINING OF NAUSEA, MEDICATED WITH COMPAZINE PER DEC. PLEASANT AND COOPERATIVE WITH CARE. ADMITTED FOR SEPSIS, UTI. INCONTINENT OF URINE UPON ARRIVAL, ATTENDS IN PLACE CHANGED. HX OF RIGHT BKA IN 2022 AND RECENT HOSPITALIZATION FOR HIP REPAIR R/T FALL WITH FRACTURE TO RIGHT HIP. INCISION TO RIGHT HIP WITH 7 KONSTANTIN AND R BKA WITH TWO KONSTANTIN, NOTIFIED AND NEW ORDERS RECIEVED TO REMOVE. KONSTANTIN REMOVED, PATIENT TOLERATED WELL. SKIN MACERATION AND BREAKDOWN TO COCCYX AND GROIN, NOTIFIED AND NEW ORDER FOR ZYNC BARRIER CREAM RECIEVED AND APPLIED TO PATIENT. PATIENT WITH BILATERAL MASTECTOMY. CLEAR LIQUID DIET, ACHS BLOOD SUGAR CHECKS. PATIENT CONTINUES WITH TACHYCARDIA 110s-120s. WILL CONTINUE TO MONITOR.
[2025-01-26 14:02] VITALS: BP 139/80
[2025-01-26] MEDS ORDERED: ZINC OXIDE/PETROLATUM, YELLOW 1 APPLIC/71 GM PASTE TOP PRN (15:00)
[2025-01-26 15:20] VITALS: BP 115/69
[2025-01-26] MEDS ORDERED: Docusate Sodium/Senna 1 Tab PO ONE (16:40)
[2025-01-26 19:25] VITALS: BP 95/55
--- NOTE | 2025-01-26 19:39 | NUR ---
SHIFT SUMMARY NO NEW CHANGES SINCE ADMISSION, PATIENT CONTINUES TO BE PLEASANT AND COOPERATIVE, A/OX4. PATIENT STATES SHE LIVES WITH HER SON, DAUGHTER IN LAW, AND GRANDCHILD BUT [facility] HER RECENT FALL WITH HIP FRACTURE AND REPAIR. PATIENT REPORTS NO BOWEL MOVEMENT FOR 7 DAYS, MD NOTIFIED AND NEW ORDER FOR BOWEL MEDS RECIEVED FROM DR. MAYORGA AND ADMINISTERED PER DEC. BEDSIDE SHIFT REPORT COMPLETED WITH BODY AND FENDER WORKER RN.
[2025-01-26] MEDS ORDERED: Docusate Sodium/Senna 1 Tab PO SCH (21:00)
[2025-01-27 02:23] VITALS: BP 102/60
--- NOTE | 2025-01-27 06:10 | NUR ---
CAMP RECREATION SPECIALIST SUMMARY PT A/OX4. PLEASANT AND COOPERATIVE. PT HAS BEEN ON CLEAR LIQ DIET DUE TO N&V UPON ADMIT. PT HAS BEEN W/O N&V FOR FULL SHIFT. PT IS TOLERATING CLEAR LIQUIDS WELL AND EXPRESSED SHE HAS AND INCREASING APPETITE. NEW ORDER FROM DR BEAN TO ADVANCE TOLERATED TO CONS CARB DIET. PT ABLE TO MAKE NEEDS KNOWN. INCISION TO R HIP HEALING WITH SMALL SCAB REMAINING. PT PLEASANT AND COOPERATIVE. CALL LIGHT IN REACH. CARE WILL CONTINUE UNTIL REPORT GIVEN TO ONCOMING NURSE.
[2025-01-27 07:42] VITALS: BP 95/58
[2025-01-27] MEDS ORDERED: Insulin Human Lispro 100 Units/ML 3ML Syringe SC SCH (11:30)
[2025-01-27] MEDS ORDERED: CefTRIAXone Sodium 1,000 MG in NS 100 ML IV SCH (15:30)
[2025-01-27 15:36] VITALS: BP 102/67
[2025-01-27] MEDS ORDERED: NS 250 ML IV PRN (15:45)
--- NOTE | 2025-01-27 16:23 | NUR ---
SHIFT SUMMARY PT CONT LEVEL OF CARE. PT NOTED TO BE A&OX4 AND IND TO BSC. PT PLAN IS TO CONT WITH IV ABT D/T UTI AND POSSIBLE DC IN NEXT COUPLE DAYS. PLAN IS TO GO BACK TO SNF FOR REHAB BUT REQUIRES READMITION TO FACILITY CONT WAITING ON ACCEPTANCE.
[2025-01-27 19:53] VITALS: BP 86/53
[2025-01-27] MEDS ORDERED: Lactobacil 2-S.Thermo-Bifido 1 1 Cap PO SCH (21:00)
[2025-01-27] MEDS ORDERED: Bisacodyl 10 MG Supp PR PRN (21:15)
[2025-01-27] MEDS ORDERED: Magnesium Hydroxide Conc 10 ML UDC PO PRN (21:15)
[2025-01-28 04:36] VITALS: BP 114/62
--- NOTE | 2025-01-28 06:13 | NUR ---
LIQUID YEAST SUPERVISOR SUMMARY PT A/OX4. NO ACUTE EVENTS. PT IS REPORTING SHE HAS NOT HAD A BOWEL MOVMENT FOR OVER A WEEK. NEW ORDER FOR MILK OF MAG AND SUPPOSITORY IF NO RESULT. PT IS ABLE TO MAKE NEEDS KNOWN. CALL LIGHT ACCESSIBLE. CARE WILL CONTINUE UNTIL REPORT GIVEN TO ONCOMING NURSE.
[2025-01-28 07:46] VITALS: BP 110/67
--- NOTE | 2025-01-28 07:46 | NUR ---
Patient requested to get up, student assisted to sit in chair. Soiled linens changed.
[2025-01-28 14:51] VITALS: BP 112/63
[2025-01-28] MEDS ORDERED: Acetaminophen 325 MG TABLET PO PRN (15:15)
[2025-01-28 19:25] VITALS: BP 111/67
--- NOTE | 2025-01-28 19:35 | NUR ---
SHIFT SUMMARY: PT A&O X4. PLEASANT AND COOPERATIVE WITH CARE. NO ACUTE EVENTS OCCURED THIS SHIFT. NEW MEPILEX PLACED ON COCCYX D/T EXCORIATION; PICTURES IN CHART. TYLENOL ORDERED THIS SHIFT D/T 03/[address] PIVOT TRANSFER TO COMMODE/RECLINER. CALL LIGHT IN REACH. BED IN LOWEST POSITION.
[2025-01-29 03:50] VITALS: BP 106/60
[2025-01-29 06:06] LABS: BASOPHILS ABSOLUTE AUTO 0.12 K/mm3 (0.00-0.23); BASOPHILS PERCENT AUTO 1 % (0-2); EOSINOPHILS PERCENT AUTO 4 % (0-6); Hematocrit 33.3 % (33.0-51.0); Hemoglobin 10.8 g/dL (11.5-16.0); IMMATURE GRAN ABSOLUTE AUTO 0.03 K/mm3 (0.00-0.10); IMMATURE GRAN PERCENT AUTO 0 % (0-1); LYMPHOCYTES ABSOLUTE AUTO 3.35 K/mm3 (0.84-5.20); LYMPHOCYTES PERCENT AUTO 34 % (21-46); MONOCYTES ABSOLUTE AUTO 0.53 K/mm3 (0.16-1.47); MONOCYTES PERCENT AUTO 5 % (4-13); Mean Corpuscular HGB 28.3 pg (26.0-34.0); Mean Corpuscular HGB Conc 32.4 g/dL (31.5-36.5); Mean Corpuscular Volume 87 fL (80-100); Mean Platelet Volume 9.9 fL (9.1-12.4); NEUTROPHILS PERCENT AUTO 55 % (41-73); Platelet Count 382 K/mm3 (150-400); RDW Coefficient Variation 12.9 % (11.7-14.2); RDW Standard Deviation 40.6 fL (35.1-46.3); Red Blood Cell Count 3.82 M/mm3 (3.80-5.20); White Blood Cell Count 9.73 K/mm3 (4.00-11.30)
[2025-01-29 06:25] LABS: Bun/Creatinine Ratio 31.2 (12.0-20.0); Calcium, Blood 9.3 mg/dL (8.5-10.1); Creatinine, Blood 0.55 mg/dL (0.40-1.00); Potassium, Blood 3.7 mmol/L (3.5-5.5)
[2025-01-29 07:46] VITALS: BP 112/63
[2025-01-29 17:16] VITALS: BP 124/78
--- NOTE | 2025-01-29 18:08 | NUR ---
Shift Summary No acute changes. Small bowel movement during the shift. Excoriation on coccyx checked, dressing is clean, dry and intact. Stand pivot on left leg, right below knee amputation. Here for septic UTI, requires one more day of antibiotic. Plan is for patient to go back to SNF once medically stable. Call light in reach, bed in lowest position.
[2025-01-29 19:51] VITALS: BP 95/66
[2025-01-30 00:08] VITALS: BP 128/61
[2025-01-30 04:54] VITALS: BP 121/69
--- NOTE | 2025-01-30 04:56 | NUR ---
AAOX4, PIVOT TO BSC WITH MODERATE ASSIST WITH BRIEFS. RA. PLAN TO GO BACK TO SNF, [facility] TODAY. NO ACUTE CARE NEEDS OVERNIGHT, SLEPT WELL.
[2025-01-30 05:49] LABS: BASOPHILS PERCENT AUTO 1 % (0-2); EOSINOPHILS ABSOLUTE AUTO 0.31 K/mm3 (0.00-0.68); EOSINOPHILS PERCENT AUTO 4 % (0-6); Hematocrit 34.5 % (33.0-51.0); Hemoglobin 11.2 g/dL (11.5-16.0); IMMATURE GRAN ABSOLUTE AUTO 0.02 K/mm3 (0.00-0.10); IMMATURE GRAN PERCENT AUTO 0 % (0-1); LYMPHOCYTES ABSOLUTE AUTO 3.46 K/mm3 (0.84-5.20); LYMPHOCYTES PERCENT AUTO 41 % (21-46); MONOCYTES ABSOLUTE AUTO 0.42 K/mm3 (0.16-1.47); MONOCYTES PERCENT AUTO 5 % (4-13); Mean Corpuscular HGB 28.5 pg (26.0-34.0); Mean Corpuscular HGB Conc 32.5 g/dL (31.5-36.5); Mean Corpuscular Volume 88 fL (80-100); NEUTROPHILS ABSOLUTE AUTO 4.07 K/mm3 (1.96-9.15); NEUTROPHILS PERCENT AUTO 49 % (41-73); Platelet Count 364 K/mm3 (150-400); RDW Coefficient Variation 12.8 % (11.7-14.2); RDW Standard Deviation 40.9 fL (35.1-46.3); Red Blood Cell Count 3.93 M/mm3 (3.80-5.20); White Blood Cell Count 8.38 K/mm3 (4.00-11.30)
[2025-01-30 06:17] LABS: Bun/Creatinine Ratio 38.2 (12.0-20.0); Creatinine, Blood 0.5 mg/dL (0.40-1.00); Potassium, Blood 3.8 mmol/L (3.5-5.5)
[2025-01-30 07:59] VITALS: BP 104/61
--- NOTE | 2025-01-30 15:15 | NUR ---
PLEASE CALL DAUGHTER IN LAW, MAMI WHEN TIME/DATE OF SNF TRANSFER IS KNOWN .
[2025-01-30 16:04] VITALS: BP 121/71
--- NOTE | 2025-01-30 18:31 | NUR ---
PT A&OX4, VSS, RA, NON-TELE, SBA TO BSC. FINISHED IV ABX TODAY, MEDICALLY STABLE FOR D/C, AWAITING INSURANCE APPROVAL FOR PLACEMENT BACK TO [facility], PT AND DAUGHTER IN LAW UPDATED ON DELAY. PT C/O HEADACHE, PRN TYLENOL GIVEN X1 WITH ADEQUATE RELIEF. PT CALLS APPROPRIATLY, CALL LIGHT IN REACH.
[2025-01-30 19:39] VITALS: BP 93/51
[2025-01-31 01:49] VITALS: BP 127/71
--- NOTE | 2025-01-31 04:33 | NUR ---
ANXIOUS TO RETURN TO [facility] TODAY. SLEPT WELL, BRIEFS CHANGED FOR INCONTINENT OF URINE. NO ACUTE NEEDS OVER NIGHT.
[2025-01-31 07:48] VITALS: BP 121/65
[2025-01-31] MEDS ORDERED: BACTRIM 400-801 EACH PO (10:45)
--- NOTE | 2025-01-31 11:22 | NUR ---
DISCHARGE NOTE PT DISCHARGED TO [facility], REPORT GIVEN TO TAMIE ALVA. DISCHARGE PACKET PROVIDED TO THE TRANSPORTER. NO ACUTE CHANGES PRIOR TO DC.
== END 2025-01-31 11:17 | DRG 872 ==
LOC: ER 00:14 → ERHOLD 00:15 → MEDS 00:15
PROVIDERS: Emergency Medicine; ADMIT Family Medicine
DX: A41.9 Sepsis, unspecified organism (principal); N39.0 Urinary tract infection, site not specified; I10 Essential (primary) hypertension; M06.9 Rheumatoid arthritis, unspecified; M54.9 Dorsalgia, unspecified; Z96.641 Presence of right artificial hip joint; I51.7 Cardiomegaly; E11.65 Type 2 diabetes mellitus with hyperglycemia; E86.0 Dehydration; R11.2 Nausea with vomiting, unspecified; G89.29 Other chronic pain; E78.5 Hyperlipidemia, unspecified; Z88.2 Allergy status to sulfonamides; Z88.8 Allergy status to other drugs, medicaments and biological substances; Z91.040 Latex allergy status; Z79.4 Long term (current) use of insulin; Z79.899 Other long term (current) drug therapy; Z79.85 Long-term (current) use of injectable non-insulin antidiabetic drugs; Z79.82 Long term (current) use of aspirin; Z79.811 Long term (current) use of aromatase inhibitors; Z86.73 Personal history of transient ischemic attack (TIA), and cerebral infarction without residual deficits; Z90.89 Acquired absence of other organs; Z98.890 Other specified postprocedural states; Z90.710 Acquired absence of both cervix and uterus; Z90.49 Acquired absence of other specified parts of digestive tract; Z98.51 Tubal ligation status; Z90.721 Acquired absence of ovaries, unilateral; Z85.3 Personal history of malignant neoplasm of breast; Z89.411 Acquired absence of right great toe; Z90.13 Acquired absence of bilateral breasts and nipples; Z98.42 Cataract extraction status, left eye; Z98.41 Cataract extraction status, right eye
CPT/HCPCS: 0241U; 36415; 71045; 71260; 80048; 80053; 81001; 82947; 83605; 83690; 83735; 84100; 84443; 84484; 85025; 85379; 87040; 87086; 93005; 93010; 96365; 96372; 96375; 96376; 97116; 97161; 99285-25; A6590; A9270; G0378; J0696; J0780; J1650; J1815; J2405; J2765; J7030; J7050; Q9967